=== PATIENT | female | born 1955 | race Caucasian/White ===

== ENCOUNTER 2017-03-11 11:53 | Emergency (ER) | payer SELFPAY ==
--- NOTE | 2017-03-11 13:38 | RAD ---
Indication: Neck pain. 5 views of the cervical spine demonstrates disc space narrowing at C4-C5, C5-C6 and C6-C7. Spinal canal appears to be intact. IMPRESSION: Degenerative disc disease at C4-C5, C5-C6 and C6-C7.
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
[2017-03-11 14:00] VITALS: BP 110/71
== END 2017-03-11 14:00 | disposition home or self-care (01) ==
LOC: ED 11:53
DX: S13.4XXA Sprain of ligaments of cervical spine, initial encounter (principal); M54.9 Dorsalgia, unspecified; M50.321 Other cervical disc degeneration at C4-C5 level; M50.322 Other cervical disc degeneration at C5-C6 level; M50.320 Other cervical disc degeneration, mid-cervical region, unspecified level; C71.9 Malignant neoplasm of brain, unspecified; V89.2XXA Person injured in unspecified motor-vehicle accident, traffic, initial encounter; Y92.014 Private driveway to single-family (private) house as the place of occurrence of the external cause; M25.569 Pain in unspecified knee; F41.9 Anxiety disorder, unspecified; F32.9 Major depressive disorder, single episode, unspecified; Y92.9 Unspecified place or not applicable
CPT/HCPCS: 72050; 72170; 72220; 99282

== ENCOUNTER 2017-06-10 11:27 | Inpatient (IN) | payer BC ==
[2017-06-10] MEDS ORDERED: NS 0.9% 1000 ML* 2,000 ML IV ONE (12:47)
[2017-06-10] MEDS ORDERED: cefTRIAXone(*) 1 GM in NS 0.9% 50 ML* 50 ML IVPB ONE (12:49)
[2017-06-10] MEDS ORDERED: Acetaminophen TAB* 325 MG PO ONE (12:49)
[2017-06-10 13:11] LABS: Hematocrit 32 % (35-47); Hemoglobin 10.6 g/dl (12.0-16.0); Mean Corpuscular HGB Conc 33 g/dl (31-36); Mean Corpuscular Hemoglobin 30 pg (27-31); Mean Corpuscular Volume 91 fL (80-97); Mean Platelet Volume 9 um3 (7.4-10.4); Red Blood Count 3.53 10^6/ul (4.0-5.4); Red Cell Distribution Width 15 % (10.5-15); White Blood Count 6.4 10^3/ul (3.5-10.8)
[2017-06-10 13:13] LABS: Add Diff/Slide Review? Slide Review Added; Comments Flag Yes
--- NOTE | 2017-06-10 13:21 | RAD ---
HISTORY: Fever, weakness COMPARISONS: May 01, 2017 VIEWS: 1: frontal portable view of the chest at 1:04 PM FINDINGS: LINES AND TUBES: None. CARDIOMEDIASTINAL SILHOUETTE: The cardiomediastinal silhouette is normal for portable technique. PLEURA: The costophrenic angles are sharp. No pleural abnormalities are noted. LUNG PARENCHYMA: There is patchy alveolar opacification of the right lung base ABDOMEN: The upper abdomen is clear. There is no subphrenic gas. BONES AND SOFT TISSUES: There is a mild scoliotic curvature of the spine. IMPRESSION: PATCHY RIGHT BASILAR CONSOLIDATION. RECOMMEND FOLLOW-UP UNTIL RESOLUTION TO EXCLUDE UNDERLYING PULMONARY PARENCHYMAL PATHOLOGY.
[2017-06-10 13:28] LABS: B Type Natriuretic Peptide 98 pg/mL
[2017-06-10 13:32] LABS: ALT 16 U/L (7-52); AST 17 U/L (13-39); Albumin 3.3 g/dL (3.2-5.2); Alkaline Phosphatase 58 U/L (34-104); Ammonia 22 mol/L (16-53); Anion Gap 5 mmol/L (2-11); BUN/Creatinine Ratio 14.6 (8-20); Blood Urea Nitrogen 13 mg/dL (6-24); C Reactive Protein 28.48 mg/L (< 5.00); CO2 Carbon Dioxide 24 mmol/L (22-32); Calcium 8.3 mg/dL (8.6-10.3); Chloride 108 mmol/L (101-111); Creatine Kinase 318 U/L (10-223); EGFR African American 82.1 (>60); EGFR Non-African American 63.9 (>60); Globulin 2.2 g/dL (2-4); Glucose 109 mg/dL (70-100); Lipase 14 U/L (11.0-82.0); Magnesium 1.9 mg/dL (1.9-2.7); Potassium 3.1 mmol/L (3.5-5.0); Sodium 137 mmol/L (133-145); Total Protein 5.5 g/dL (6.4-8.9)
[2017-06-10 13:43] LABS: Acetaminophen < 15 mcg/mL; Salicylate < 2.50 mg/dL (<30)
[2017-06-10] MEDS ORDERED: Azithromycin IV(*) 500 MG in NS 0.9% 250 ML* 250 ML IVPB ONE (13:59)
[2017-06-10] MEDS ORDERED: Azithromycin IV* 500 MG ADVAN VIAL IVPB ONE (14:09)
[2017-06-10] MEDS ORDERED: fentaNYL PATCH 25 MCG/HR TRANSDERM SCH (15:00)
[2017-06-10] MEDS: Enoxaparin(*) 40 MG/0.4 ML SYR SUBCUT SCH (15:02)
--- NOTE | 2017-06-10 15:12 | ADMNOTE ---
Subjective Date of Service: 06/10/17 Interval History: ADMISSION HISTORY AND PHYSICAL EXAM: Allergies Allergy/AdvReac Type Severity Reaction Status Date / Time Shellfish Allergy Allergy Unknown Unknown Verified 06/10/17 11:39 Reaction Details Tetracycline Allergy Anaphylatic Verified 06/10/17 11:39 Shock Home Medications Medication Instructions Recorded Confirmed Type Ferrous Sulfate TAB* 325 mg PO DAILY 04/27/15 06/10/17 History fentaNYL PATCH 25 MCG/HR* 25 mcg TRANSDERM Q72H 01/15/17 06/10/17 History [Duragesic PATCH 25 Mcg/Hr*] Acetaminophen W/ Codeine 1 - 2 tab PO Q4H PRN #270 tab MDD 04/10/17 06/10/17 Rx [Acetaminophen/Codeine 300-60 mg] 9 tabs Calcium [Oyster-Farhat 500] 500 mg PO DAILY 05/01/17 06/10/17 History Multivitamins/Minerals TAB* 1 tab PO DAILY 05/01/17 06/10/17 History [Theragran/minerals TAB*] Ondansetron ODT TAB* [Zofran 4 MG 4 mg SL Q6H PRN MDD 3 05/01/17 06/10/17 History Odt TAB*] Diazepam TAB(*) [Valium TAB(*)] 10 mg PO Q8H PRN 06/07/17 06/10/17 History Esomeprazole(NF) [NexIUM(NF)] 40 mg PO DAILY 06/10/17 06/10/17 History Topiramate TAB(*) [Topamax 25 MG 75 mg PO BID 06/10/17 06/10/17 History tab] hydrOXYzine HCL TAB* [Atarax TAB 50 mg PO Q4HR PRN 06/10/17 06/10/17 History 50 MG *] HPI: The patient states she woke up in her usual state of health this AM and had breakfast and took her AM meds. She said she then fell on the way to answer the door and couldn't get up. The person ringing her doorbell heard nothing and called the patient's friend, then tried another door which was unlocked. He found the patient on the floor. He lifted her back into bed, then called 911. The patient does not seem to recll these events accurately. Family History: Findings - Mother had leukemia. Family hx lung, colon, liver ca. Social History: Findings - Lives alone, SDM is her friend Pina Hollis. No alcohol or tobacco use. Past Medical History: Findings - Brain bx 11/2016, chemo q 6 weeks. COPD, GERD, spinal stenosi, Darryl-en-Y bypass 2012, D&C, esophageal dilatation Review of Systems - Measurements Intake and Output: Intake and Output Last 24 Hours 06/08/17 06/09/17 06/10/17 06/11/17 06:59 06:59 06:59 06:59 Intake Total 1999 Balance 1999 Weight 107 lb Intake: IV Fluids 1999 - Review of Systems Constitutional Symptoms: Positive: Weight Loss Dermatology: Positive: Normal HEENT: Positive: Change in Hearing - diminshed hearing Eyes: Positive: Normal Thyroid: Positive: Normal Pulmonary: Positive: Normal Cardiology: Positive: Normal Gastroenterology: Positive: Nausea Genital - Urinary: Positive: Normal Musculoskeletal: Positive: Joint Pain, Low Back Pain Endocrinology: Positive: Normal Hematologic/Lymphatic: Positive: Anemia Neurology: Positive: Change in Memory Psychiatry: Positive: Normal Allergic/Immunologic: Negative: Hx Anaphylaxis, Hx Angioedema, Hx Environmental, Hx Seasonal, Athsma, Hx HIV, Immunocompromise, Swollen Glands LymphNodes, Other Objective Active Medications: Acetaminophen/Codeine Phosphate (Tylenol W/ Codeine #4 (300 Mg/60 Mg) (Nf)) 1 tab PO Q4H PRN PRN Reason: PAIN Enoxaparin Sodium (Lovenox(*)) 40 mg SUBCUT Q24H [facility] Last Admin: 06/10/17 15:02 Dose: 40 mg Fentanyl (Duragesic Patch 25 Mcg/Hr*) 25 mcg TRANSDERM Q72H [facility] Ceftriaxone Sodium 1 gm/ (Sodium Chloride) 50 mls @ 200 mls/hr IVPB Q24H [facility] Azithromycin 500 mg/ Sodium (Chloride) 250 mls @ 250 mls/hr IVPB Q24H [facility] Multivitamins/Minerals (Theragran/Minerals Tab*) 1 tab PO DAILY [facility] Ondansetron HCl (Zofran Odt Tab*) 4 mg SL Q6H PRN PRN Reason: NAUSEA Topiramate (Topamax(*)) 75 mg PO BID [facility] Vital Signs - 8 hr 06/10/17 06/10/17 06/10/17 11:36 11:37 11:38 Temperature 101.7 F Pulse Rate 101 Respiratory 14 17 Rate Blood Pressure 92/54 92/54 (mmHg) O2 Sat by Pulse 96 Oximetry 06/10/17 06/10/17 06/10/17 12:00 12:30 13:00 Temperature Pulse Rate 91 92 Respiratory 17 14 Rate Blood Pressure 83/46 83/72 (mmHg) O2 Sat by Pulse 96 99 Oximetry 06/10/17 06/10/17 06/10/17 13:11 13:51 14:00 Temperature Pulse Rate Respiratory 18 29 Rate Blood Pressure 97/59 (mmHg) O2 Sat by Pulse 100 Oximetry 06/10/17 06/10/17 06/10/17 14:04 14:15 14:30 Temperature 99.1 F Pulse Rate Respiratory 19 16 Rate Blood Pressure 86/57 85/62 (mmHg) O2 Sat by Pulse Oximetry 06/10/17 06/10/17 14:58 15:00 Temperature Pulse Rate 88 Respiratory 16 13 Rate Blood Pressure 85/62 (mmHg) O2 Sat by Pulse 96 Oximetry Oxygen Devices in Use Now: None Appearance: Alert, sitting up on ED stretcher. In good spirits. Looks comfortable. Eyes: No Scleral Icterus Ears/Nose/Mouth/Throat: Clear Oropharnyx, Mucous Membranes Moist Neck: NL Appearance and Movements; NL JVP, No Thyroid Enlargement, Masses Respiratory: Symmetrical Chest Expansion and Respiratory Effort, Clear to Auscultation, Clear to Percussion Cardiovascular: NL Sounds; No Murmurs; No JVD, RRR, No Edema, - Abdominal: NL Sounds; No Tenderness; No Distention, No Hepatosplenomegaly, - Extremities: No Edema, No Clubbing, Cyanosis, - Skin: No Rash or Ulcers, No Nodules or Sclerosis, - Neurological: NL Sensation - Diminished memory. Result Diagrams: 06/10/17 12:57 06/10/17 12:57 Assess/Plan/Problems-Billing Assessment: - Patient Problems (1) Pneumonia Current Visit: Yes Status: Acute Code(s): J18.9 - PNEUMONIA, UNSPECIFIED ORGANISM SNOMED Code(s): 146948025 Comment: T 101.7 in ED. RLL infiltrate. ST swallow eval requested. Ceftri/ azith ordered. (2) Brain cancer Current Visit: No Status: Chronic Code(s): C71.9 - MALIGNANT NEOPLASM OF BRAIN, UNSPECIFIED SNOMED Code(s): 165651124 Comment: Still scheduled for more chemo on regular basis. Not clear if nausea is the main cause of her weight loss. Will give trimethobenzamide tid. Per her friend's account, patient is not safe alone at home. I will ask SW to help them set up 24 hr care for her. (3) Weight loss Current Visit: No Status: Acute Comment: Antiemetic tid as above. Nutrition consult requested. (4) Seizure Current Visit: No Status: Chronic Code(s): R56.9 - UNSPECIFIED CONVULSIONS SNOMED Code(s): 70864900 Comment: - No seizure activity - Seizure precautions - Continue Topiramate. I suspect med compliance was not good at home. Message left for Dr. Vyas to call me back (5) GERD (gastroesophageal reflux disease) Current Visit: No Status: Chronic Code(s): K21.9 - GASTRO-ESOPHAGEAL REFLUX DISEASE WITHOUT ESOPHAGITIS SNOMED Code(s): 521695173 Comment: Omeprazole to replace her esomprazole
[2017-06-10 15:42] LABS: Immature Granulocytes 15 % (0-9); Neutrophil % 78 % (38-83)
[2017-06-10] MEDS: Codeine TAB* 30 MG PO PRN ×2 (15:55→21:30)
[2017-06-10] MEDS: Acetaminop/Codeine 30 MG TAB* 1 TAB (300 MG/30 MG) PO PRN ×2 (15:55→21:29)
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
[2017-06-10] MEDS: fentaNYL Patch Check Q Shift 1 NOTE SCH (21:31)
[2017-06-10] MEDS: Trimethobenzamide CAP* 300 MG PO SCH (21:31)
[2017-06-10] MEDS: Topiramate TAB(*) 25 MG PO SCH (21:31)
[2017-06-10] MEDS: Morphine INJ* 4 MG/ML 1 ML CARPUJECT IV PRN (22:59)
[2017-06-11] MEDS: Morphine INJ* 4 MG/ML 1 ML CARPUJECT IV PRN ×2 (05:34→10:38)
[2017-06-11] MEDS: Omeprazole CAP* 20 MG PO SCH (05:40)
[2017-06-11] MEDS: fentaNYL Patch Check Q Shift 1 NOTE SCH ×2 (06:15→19:01)
[2017-06-11] MEDS: Multivitamins/Minerals TAB PO SCH (08:16)
[2017-06-11] MEDS: Topiramate TAB(*) 25 MG PO SCH ×2 (08:16→21:09)
[2017-06-11] MEDS: Trimethobenzamide CAP* 300 MG PO SCH ×3 (08:56→21:08)
[2017-06-11] MEDS: Azithromycin IV(*) 500 MG in NS 0.9% 250 ML* 250 ML IVPB SCH (10:38)
--- NOTE | 2017-06-11 11:28 | PN ---
Subjective Date of Service: 06/11/17 Interval History: Mild cough with small amt green sputum. Chronic pains much of her body, some more on L ribs where she fell, not really any worse than usual. Family History: Findings - Mother had leukemia. Family hx lung, colon, liver ca. Social History: Findings - Lives alone, SDM is her friend Pina Hollis. No alcohol or tobacco use. Past Medical History: Findings - Brain bx 11/2016, chemo q 6 weeks. COPD, GERD, spinal stenosi, Darryl-en-Y bypass 2011, D&C, esophageal dilatation Objective Active Medications: Acetaminophen/Codeine Phosphate (Tylenol/Codeine 30 Mg Tab*) 1 tab PO Q4H PRN PRN Reason: PAIN Last Admin: 06/10/17 21:29 Dose: 1 tab Codeine Sulfate (Codeine Tab*) 30 mg PO Q4H PRN PRN Reason: PAIN Last Admin: 06/10/17 21:30 Dose: 30 mg Enoxaparin Sodium (Lovenox(*)) 40 mg SUBCUT Q24H [facility] Last Admin: 06/10/17 15:02 Dose: 40 mg Fentanyl (Duragesic Patch 25 Mcg/Hr*) 25 mcg TRANSDERM Q72H [facility] Last Admin: 06/10/17 15:52 Dose: 25 mcg Ceftriaxone Sodium 1 gm/ (Dextrose) 50 mls @ 200 mls/hr IVPB Q24H [facility] Azithromycin 500 mg/ Sodium (Chloride) 250 mls @ 250 mls/hr IVPB Q24H [facility] Last Admin: 06/11/17 10:38 Dose: 250 mls/hr Multivitamins/Minerals (Theragran/Minerals Tab*) 1 tab PO DAILY [facility] Last Admin: 06/11/17 08:16 Dose: 1 tab Omeprazole (Prilosec Cap*) 20 mg PO 0600 [facility] Last Admin: 06/11/17 05:40 Dose: 20 mg Ondansetron HCl (Zofran Odt Tab*) 4 mg SL Q6H PRN PRN Reason: NAUSEA Pharmacy Profile Note (Fentanyl Patch Check Q Shift) 0 note N/A 0700,1900 [facility] Last Admin: 06/11/17 06:15 Dose: 1 note Topiramate (Topamax(*)) 75 mg PO BID [facility] Last Admin: 06/11/17 08:16 Dose: 75 mg Trimethobenzamide HCl (Tigan Cap*) 300 mg PO TID [facility] Last Admin: 06/11/17 08:56 Dose: 300 mg Vital Signs - 8 hr 06/11/17 06/11/17 06/11/17 03:33 05:34 06:53 Temperature 98.2 F Pulse Rate 69 Respiratory 16 18 18 Rate Blood Pressure 88/52 (mmHg) O2 Sat by Pulse 97 Oximetry 06/11/17 06/11/17 06/11/17 07:29 08:23 10:38 Temperature 98.5 F Pulse Rate 73 Respiratory 16 16 18 Rate Blood Pressure 85/55 (mmHg) O2 Sat by Pulse 100 Oximetry Oxygen Devices in Use Now: Nasal Cannula Appearance: Alert, partly up in bed. In good spirits. Looks comfortable. No cough during my visit. Eyes: No Scleral Icterus Neck: NL Appearance and Movements; NL JVP, No Thyroid Enlargement, Masses Respiratory: Symmetrical Chest Expansion and Respiratory Effort, Clear to Auscultation, Clear to Percussion Extremities: No Edema, No Clubbing, Cyanosis, - Skin: No Rash or Ulcers, No Nodules or Sclerosis, - - Alopecia R scalp due to RT. Neurological: Alert and Oriented x 3, NL Sensation Result Diagrams: 06/10/17 12:57 06/10/17 12:57 Additional Lab and Data: Lab Results 06/10/17 06/10/17 06/10/17 Range/Units 12:57 12:57 12:57 WBC (3.5-10.8) 10^3/ul RBC (4.0-5.4) 10^6/ul Hgb (12.0-16.0) g/dl Hct (35-47) % MCV (80-97) fL MCH (27-31) pg MCHC (31-36) g/dl RDW (10.5-15) % Plt Count (150-450) 10^3/ul MPV (7.4-10.4) um3 Immature Gran % (Auto) (0-9) % Neut % (Auto) (38-83) % Lymph % (Auto) (25-47) % Dade % (Auto) (1-9) % Eos % (Auto) (0-6) % Baso % (Auto) (0-2) % Absolute Neuts (auto) (1.5-7.7) 10^3/ul Absolute Lymphs (auto) (1.0-4.8) 10^3/ul Absolute Monos (auto) (0-0.8) 10^3/ul Absolute Eos (auto) (0-0.6) 10^3/ul Absolute Basos (auto) (0-0.2) 10^3/ul Absolute Nucleated RBC 10^3/ul Neutrophils % (38-83) % Band Neutrophils % (0-8) % Lymphocytes % (25-47) % Monocytes % (0-13) % Nucleated RBC % Normal RBC Morphology Elliptocytes INR (Anticoag Therapy) 1.09 H (0.77-1.02) APTT 29.3 (26.0-36.3) seconds Sodium 137 (133-145) mmol/L Potassium 3.1 L (3.5-5.0) mmol/L Chloride 108 (101-111) mmol/L Carbon Dioxide 24 (22-32) mmol/L Anion Gap 5 (2-11) mmol/L BUN 13 (6-24) mg/dL Creatinine 0.89 (0.51-0.95) mg/dL Est GFR ( Amer) 82.1 (>60) Est GFR (Non-Af Amer) 63.9 (>60) BUN/Creatinine Ratio 14.6 (8-20) Glucose 109 H (70-100) mg/dL Lactic Acid (0.5-2.0) mmol/L Calcium 8.3 L (8.6-10.3) mg/dL Magnesium 1.9 (1.9-2.7) mg/dL Total Bilirubin 0.70 (0.2-1.0) mg/dL AST 17 (13-39) U/L ALT 16 (7-52) U/L Alkaline Phosphatase 58 (34-104) U/L Ammonia 22 (16-53) mol/L Total Creatine Kinase 318 H (10-223) U/L CK-MB (CK-2) 12.1 H (0.6-6.3) ng/mL Troponin I 0.00 (<0.04) ng/mL C-Reactive Protein 28.48 H (< 5.00) mg/L B-Natriuretic Peptide 98 ( - 100) pg/mL Total Protein 5.5 L (6.4-8.9) g/dL Albumin 3.3 (3.2-5.2) g/dL Globulin 2.2 (2-4) g/dL Albumin/Globulin Ratio 1.5 (1-3) Lipase 14 (11.0-82.0) U/L TSH 0.60 (0.34-5.60) mcIU/mL Salicylates < 2.50 (<30) mg/dL Acetaminophen < 15 mcg/mL 06/10/17 06/10/17 Range/Units 12:57 12:57 WBC 6.4 (3.5-10.8) 10^3/ul RBC 3.53 L (4.0-5.4) 10^6/ul Hgb 10.6 L (12.0-16.0) g/dl Hct 32 L (35-47) % MCV 91 (80-97) fL MCH 30 (27-31) pg MCHC 33 (31-36) g/dl RDW 15 (10.5-15) % Plt Count 142 L (150-450) 10^3/ul MPV 9 (7.4-10.4) um3 Immature Gran % (Auto) 15 H (0-9) % Neut % (Auto) 92.5 H (38-83) % Lymph % (Auto) 1.9 L (25-47) % Dade % (Auto) 5.1 (1-9) % Eos % (Auto) 0.1 (0-6) % Baso % (Auto) 0.4 (0-2) % Absolute Neuts (auto) 5.9 (1.5-7.7) 10^3/ul Absolute Lymphs (auto) 0.1 L (1.0-4.8) 10^3/ul Absolute Monos (auto) 0.3 (0-0.8) 10^3/ul Absolute Eos (auto) 0 (0-0.6) 10^3/ul Absolute Basos (auto) 0 (0-0.2) 10^3/ul Absolute Nucleated RBC 0 10^3/ul Neutrophils % 78 (38-83) % Band Neutrophils % 15 H (0-8) % Lymphocytes % 3 L (25-47) % Monocytes % 4 (0-13) % Nucleated RBC % 0 Normal RBC Morphology Not Reportable Elliptocytes 1+ INR (Anticoag Therapy) (0.77-1.02) APTT (26.0-36.3) seconds Sodium (133-145) mmol/L Potassium (3.5-5.0) mmol/L Chloride (101-111) mmol/L Carbon Dioxide (22-32) mmol/L Anion Gap (2-11) mmol/L BUN (6-24) mg/dL Creatinine (0.51-0.95) mg/dL Est GFR ( Amer) (>60) Est GFR (Non-Af Amer) (>60) BUN/Creatinine Ratio (8-20) Glucose (70-100) mg/dL Lactic Acid 0.9 (0.5-2.0) mmol/L Calcium (8.6-10.3) mg/dL Magnesium (1.9-2.7) mg/dL Total Bilirubin (0.2-1.0) mg/dL AST (13-39) U/L ALT (7-52) U/L Alkaline Phosphatase (34-104) U/L Ammonia (16-53) mol/L Total Creatine Kinase (10-223) U/L CK-MB (CK-2) (0.6-6.3) ng/mL Troponin I (<0.04) ng/mL C-Reactive Protein (< 5.00) mg/L B-Natriuretic Peptide ( - 100) pg/mL Total Protein (6.4-8.9) g/dL Albumin (3.2-5.2) g/dL Globulin (2-4) g/dL Albumin/Globulin Ratio (1-3) Lipase (11.0-82.0) U/L TSH (0.34-5.60) mcIU/mL Salicylates (<30) mg/dL Acetaminophen mcg/mL Assess/Plan/Problems-Billing Assessment: - Patient Problems (1) Pneumonia Current Visit: Yes Status: Acute Code(s): J18.9 - PNEUMONIA, UNSPECIFIED ORGANISM SNOMED Code(s): 008583527 Comment: T 101.7 in ED. RLL infiltrate. Improved. ST swallow eval requested. Continue ceftri/azith. (2) Brain cancer Current Visit: No Status: Chronic Code(s): C71.9 - MALIGNANT NEOPLASM OF BRAIN, UNSPECIFIED SNOMED Code(s): 387513998 Comment: Still scheduled for more chemo on regular basis. Not clear if nausea is the main cause of her weight loss. Will give trimethobenzamide tid. Per her friend's account, patient is not safe alone at home. I will ask SW to help them set up 24 hr care for her. (3) Weight loss Current Visit: No Status: Acute Comment: Antiemetic tid as above. Nutrition consult requested. (4) Seizure Current Visit: No Status: Chronic Code(s): R56.9 - UNSPECIFIED CONVULSIONS SNOMED Code(s): 07642688 Comment: - No seizure activity - Seizure precautions - Continue Topiramate. I suspect med compliance was not good at home. Discussed with Dr. Vyas. She is transitioning pt to lamotrigine. (5) GERD (gastroesophageal reflux disease) Current Visit: No Status: Chronic Code(s): K21.9 - GASTRO-ESOPHAGEAL REFLUX DISEASE WITHOUT ESOPHAGITIS SNOMED Code(s): 059763967 Comment: Omeprazole in replace of her esomprazole
[2017-06-11] MEDS: cefTRIAXone(*) 1 GM in D5W 50 ML BAG* 50 ML IVPB SCH (11:50)
[2017-06-11] MEDS: Enoxaparin(*) 40 MG/0.4 ML SYR SUBCUT SCH (14:05)
[2017-06-11] MEDS: Codeine TAB* 30 MG PO PRN ×2 (14:12→21:05)
[2017-06-11] MEDS: Acetaminop/Codeine 30 MG TAB* 1 TAB (300 MG/30 MG) PO PRN ×2 (14:12→21:07)
[2017-06-11 14:18] LABS: Urine Bacteria Absent (Absent); Urine Bilirubin Negative (Negative); Urine Glucose Negative (Negative); Urine Nitrite Negative (Negative)
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
[2017-06-11] MEDS: lamoTRIgine TAB(*) 25 MG PO SCH (21:08)
[2017-06-12] MEDS: Acetaminop/Codeine 30 MG TAB* 1 TAB (300 MG/30 MG) PO PRN ×3 (00:59→12:05)
[2017-06-12] MEDS: Codeine TAB* 30 MG PO PRN ×3 (00:59→12:05)
[2017-06-12] MEDS: fentaNYL Patch Check Q Shift 1 NOTE SCH ×2 (07:08→19:31)
[2017-06-12] MEDS: Omeprazole CAP* 20 MG PO SCH (07:18)
[2017-06-12] MEDS: Multivitamins/Minerals TAB PO SCH (08:26)
[2017-06-12] MEDS: Topiramate TAB(*) 25 MG PO SCH ×2 (08:26→20:49)
[2017-06-12] MEDS: Trimethobenzamide CAP* 300 MG PO SCH ×3 (08:27→20:49)
[2017-06-12] MEDS: cefTRIAXone(*) 1 GM in D5W 50 ML BAG* 50 ML IVPB SCH (11:57)
[2017-06-12] MEDS: Azithromycin IV(*) 500 MG in NS 0.9% 250 ML* 250 ML IVPB SCH (12:18)
[2017-06-12] MEDS: Ondansetron ODT TAB* 4 MG SL PRN ×3 (14:01→17:50)
[2017-06-12] MEDS: Morphine ORAL CONCENTRATE* 5 MG/0.25 ML ORAL.SYRIN SL PRN ×3 (14:50→20:50)
[2017-06-12] MEDS: Enoxaparin(*) 40 MG/0.4 ML SYR SUBCUT SCH (14:51)
--- NOTE | 2017-06-12 15:57 | PN ---
Subjective Date of Service: 06/12/17 Interval History: C/O pain "entire body", more on hips, down legs, arms, L ribs. Some cough, little sputum. Not SOB. Family History: Findings - Mother had leukemia. Family hx lung, colon, liver ca. Social History: Findings - Lives alone, SDM is her friend Pina Hollis. No alcohol or tobacco use. Past Medical History: Findings - Brain bx 11/2016, chemo q 6 weeks. COPD, GERD, spinal stenosi, Darryl-en-Y bypass 2011, D&C, esophageal dilatation Objective Active Medications: Enoxaparin Sodium (Lovenox(*)) 40 mg SUBCUT Q24H [facility] Last Admin: 06/12/17 14:51 Dose: 40 mg Fentanyl (Duragesic Patch 25 Mcg/Hr*) 25 mcg TRANSDERM Q72H [facility] Last Admin: 06/10/17 15:52 Dose: 25 mcg Ceftriaxone Sodium 1 gm/ (Dextrose) 50 mls @ 200 mls/hr IVPB Q24H [facility] Last Admin: 06/12/17 11:57 Dose: 200 mls/hr Lamotrigine (Lamictal Tab(*)) 25 mg PO BEDTIME [facility] Last Admin: 06/11/17 21:08 Dose: 25 mg Morphine Sulfate (Morphine Oral Concentrate*) 5 mg SL Q2H PRN PRN Reason: PAIN Last Admin: 06/12/17 14:50 Dose: 5 mg Multivitamins/Minerals (Theragran/Minerals Tab*) 1 tab PO DAILY [facility] Last Admin: 06/12/17 08:26 Dose: 1 tab Omeprazole (Prilosec Cap*) 20 mg PO 0600 [facility] Last Admin: 06/12/17 07:18 Dose: 20 mg Ondansetron HCl (Zofran Odt Tab*) 4 mg SL Q6H PRN PRN Reason: NAUSEA Last Admin: 06/12/17 14:01 Dose: 4 mg Pharmacy Profile Note (Fentanyl Patch Check Q Shift) 0 note N/A 0700,1900 [facility] Last Admin: 06/12/17 07:08 Dose: 1 note Topiramate (Topamax(*)) 75 mg PO BID [facility] Last Admin: 06/12/17 08:26 Dose: 75 mg Trimethobenzamide HCl (Tigan Cap*) 300 mg PO TID [facility] Last Admin: 06/12/17 14:01 Dose: 300 mg Vital Signs - 8 hr 06/12/17 06/12/17 06/12/17 09:10 09:15 12:05 Respiratory 16 16 16 Rate 06/12/17 06/12/17 06/12/17 14:07 14:08 14:50 Respiratory 16 16 16 Rate Oxygen Devices in Use Now: Nasal Cannula Appearance: Alert, sitting up in bed. Eyes: No Scleral Icterus Respiratory: Symmetrical Chest Expansion and Respiratory Effort, Clear to Auscultation, Clear to Percussion Extremities: No Edema, No Clubbing, Cyanosis, - Skin: No Rash or Ulcers, No Nodules or Sclerosis, - Neurological: Alert and Oriented x 3, NL Sensation Result Diagrams: 06/10/17 12:57 06/10/17 12:57 Additional Lab and Data: Lab Results 06/10/17 06/10/17 06/10/17 Range/Units 12:57 12:57 12:57 WBC (3.5-10.8) 10^3/ul RBC (4.0-5.4) 10^6/ul Hgb (12.0-16.0) g/dl Hct (35-47) % MCV (80-97) fL MCH (27-31) pg MCHC (31-36) g/dl RDW (10.5-15) % Plt Count (150-450) 10^3/ul MPV (7.4-10.4) um3 Immature Gran % (Auto) (0-9) % Neut % (Auto) (38-83) % Lymph % (Auto) (25-47) % Randolph % (Auto) (1-9) % Eos % (Auto) (0-6) % Baso % (Auto) (0-2) % Absolute Neuts (auto) (1.5-7.7) 10^3/ul Absolute Lymphs (auto) (1.0-4.8) 10^3/ul Absolute Monos (auto) (0-0.8) 10^3/ul Absolute Eos (auto) (0-0.6) 10^3/ul Absolute Basos (auto) (0-0.2) 10^3/ul Absolute Nucleated RBC 10^3/ul Neutrophils % (38-83) % Band Neutrophils % (0-8) % Lymphocytes % (25-47) % Monocytes % (0-13) % Nucleated RBC % Normal RBC Morphology Elliptocytes INR (Anticoag Therapy) 1.09 H (0.77-1.02) APTT 29.3 (26.0-36.3) seconds Sodium 137 (133-145) mmol/L Potassium 3.1 L (3.5-5.0) mmol/L Chloride 108 (101-111) mmol/L Carbon Dioxide 24 (22-32) mmol/L Anion Gap 5 (2-11) mmol/L BUN 13 (6-24) mg/dL Creatinine 0.89 (0.51-0.95) mg/dL Est GFR ( Amer) 82.1 (>60) Est GFR (Non-Af Amer) 63.9 (>60) BUN/Creatinine Ratio 14.6 (8-20) Glucose 109 H (70-100) mg/dL Lactic Acid (0.5-2.0) mmol/L Calcium 8.3 L (8.6-10.3) mg/dL Magnesium 1.9 (1.9-2.7) mg/dL Total Bilirubin 0.70 (0.2-1.0) mg/dL AST 17 (13-39) U/L ALT 16 (7-52) U/L Alkaline Phosphatase 58 (34-104) U/L Ammonia 22 (16-53) mol/L Total Creatine Kinase 318 H (10-223) U/L CK-MB (CK-2) 12.1 H (0.6-6.3) ng/mL Troponin I 0.00 (<0.04) ng/mL C-Reactive Protein 28.48 H (< 5.00) mg/L B-Natriuretic Peptide 98 ( - 100) pg/mL Total Protein 5.5 L (6.4-8.9) g/dL Albumin 3.3 (3.2-5.2) g/dL Globulin 2.2 (2-4) g/dL Albumin/Globulin Ratio 1.5 (1-3) Lipase 14 (11.0-82.0) U/L TSH 0.60 (0.34-5.60) mcIU/mL Salicylates < 2.50 (<30) mg/dL Acetaminophen < 15 mcg/mL 06/10/17 06/10/17 Range/Units 12:57 12:57 WBC 6.4 (3.5-10.8) 10^3/ul RBC 3.53 L (4.0-5.4) 10^6/ul Hgb 10.6 L (12.0-16.0) g/dl Hct 32 L (35-47) % MCV 91 (80-97) fL MCH 30 (27-31) pg MCHC 33 (31-36) g/dl RDW 15 (10.5-15) % Plt Count 142 L (150-450) 10^3/ul MPV 9 (7.4-10.4) um3 Immature Gran % (Auto) 15 H (0-9) % Neut % (Auto) 92.5 H (38-83) % Lymph % (Auto) 1.9 L (25-47) % Randolph % (Auto) 5.1 (1-9) % Eos % (Auto) 0.1 (0-6) % Baso % (Auto) 0.4 (0-2) % Absolute Neuts (auto) 5.9 (1.5-7.7) 10^3/ul Absolute Lymphs (auto) 0.1 L (1.0-4.8) 10^3/ul Absolute Monos (auto) 0.3 (0-0.8) 10^3/ul Absolute Eos (auto) 0 (0-0.6) 10^3/ul Absolute Basos (auto) 0 (0-0.2) 10^3/ul Absolute Nucleated RBC 0 10^3/ul Neutrophils % 78 (38-83) % Band Neutrophils % 15 H (0-8) % Lymphocytes % 3 L (25-47) % Monocytes % 4 (0-13) % Nucleated RBC % 0 Normal RBC Morphology Not Reportable Elliptocytes 1+ INR (Anticoag Therapy) (0.77-1.02) APTT (26.0-36.3) seconds Sodium (133-145) mmol/L Potassium (3.5-5.0) mmol/L Chloride (101-111) mmol/L Carbon Dioxide (22-32) mmol/L Anion Gap (2-11) mmol/L BUN (6-24) mg/dL Creatinine (0.51-0.95) mg/dL Est GFR ( Amer) (>60) Est GFR (Non-Af Amer) (>60) BUN/Creatinine Ratio (8-20) Glucose (70-100) mg/dL Lactic Acid 0.9 (0.5-2.0) mmol/L Calcium (8.6-10.3) mg/dL Magnesium (1.9-2.7) mg/dL Total Bilirubin (0.2-1.0) mg/dL AST (13-39) U/L ALT (7-52) U/L Alkaline Phosphatase (34-104) U/L Ammonia (16-53) mol/L Total Creatine Kinase (10-223) U/L CK-MB (CK-2) (0.6-6.3) ng/mL Troponin I (<0.04) ng/mL C-Reactive Protein (< 5.00) mg/L B-Natriuretic Peptide ( - 100) pg/mL Total Protein (6.4-8.9) g/dL Albumin (3.2-5.2) g/dL Globulin (2-4) g/dL Albumin/Globulin Ratio (1-3) Lipase (11.0-82.0) U/L TSH (0.34-5.60) mcIU/mL Salicylates (<30) mg/dL Acetaminophen mcg/mL Microbiology and Other Data: Microbiology 06/11/17 14:00 Urine Culture - Final Urine Assess/Plan/Problems-Billing Assessment: - Patient Problems (1) Pneumonia Current Visit: Yes Status: Acute Code(s): J18.9 - PNEUMONIA, UNSPECIFIED ORGANISM SNOMED Code(s): 348197507 Comment: T 101.7 in ED. RLL infiltrate. Improved. ST swallow eval appreciated. Continue ceftri IV, change to oral azith 06/13. (2) Brain cancer Current Visit: No Status: Chronic Code(s): C71.9 - MALIGNANT NEOPLASM OF BRAIN, UNSPECIFIED SNOMED Code(s): 622908994 Comment: Still scheduled for more chemo on regular basis. Not clear if nausea is the main cause of her weight loss. Will give trimethobenzamide tid. Per her friend's account, patient is not safe alone at home. I will ask SW to help them set up 24 hr care for her. (3) Weight loss Current Visit: No Status: Acute Comment: Antiemetic tid as above. Nutrition consult appreciated. (4) Seizure Current Visit: No Status: Chronic Code(s): R56.9 - UNSPECIFIED CONVULSIONS SNOMED Code(s): 68635787 Comment: - No seizure activity - Seizure precautions - Continue Topiramate. I suspect med compliance was not good at home. Discussed with Dr. Vyas. She is transitioning pt to lamotrigine. (5) GERD (gastroesophageal reflux disease) Current Visit: No Status: Chronic Code(s): K21.9 - GASTRO-ESOPHAGEAL REFLUX DISEASE WITHOUT ESOPHAGITIS SNOMED Code(s): 440773761 Comment: Omeprazole in replace of her esomprazole (6) Severe malnutrition Current Visit: Yes Status: Acute Code(s): E43 - UNSPECIFIED SEVERE PROTEIN- CALORIE MALNUTRITION SNOMED Code(s): 18348293 Comment: I agree with the spare person's assessment. (7) Pain Current Visit: Yes Status: Acute Code(s): R52 - PAIN, UNSPECIFIED SNOMED Code(s): 24143392 Comment: Fentanyl patch increased to 50 on 06/12. Total body bone scan .
[2017-06-12] MEDS ORDERED: fentaNYL PATCH 50 MCG/HR TRANSDERM SCH (17:00)
[2017-06-12] MEDS ORDERED: Ondansetron ODT TAB* 4 MG ONE (17:46)
[2017-06-12] MEDS: lamoTRIgine TAB(*) 25 MG PO SCH (20:49)
[2017-06-13] MEDS: Morphine ORAL CONCENTRATE* 5 MG/0.25 ML ORAL.SYRIN SL PRN ×9 (03:30→23:18)
[2017-06-13] MEDS: Omeprazole CAP* 20 MG PO SCH (06:08)
[2017-06-13] MEDS: fentaNYL Patch Check Q Shift 1 NOTE SCH ×2 (07:02→19:07)
[2017-06-13] MEDS: Trimethobenzamide CAP* 300 MG PO SCH ×3 (07:26→21:02)
[2017-06-13] MEDS: Multivitamins/Minerals TAB PO SCH (07:26)
[2017-06-13] MEDS: Azithromycin TAB* 250 MG PO SCH (07:26)
[2017-06-13] MEDS: Topiramate TAB(*) 25 MG PO SCH ×2 (08:13→21:02)
[2017-06-13 08:22] LABS: Hematocrit 31 % (35-47); Hemoglobin 10.4 g/dl (12.0-16.0); Mean Corpuscular HGB Conc 34 g/dl (31-36); Mean Corpuscular Hemoglobin 30 pg (27-31); Mean Corpuscular Volume 90 fL (80-97); Mean Platelet Volume 9 um3 (7.4-10.4); Red Blood Count 3.45 10^6/ul (4.0-5.4); Red Cell Distribution Width 15 % (10.5-15); White Blood Count 4.8 10^3/ul (3.5-10.8)
[2017-06-13 08:39] LABS: BUN/Creatinine Ratio 14.5 (8-20); Calcium 8.6 mg/dL (8.6-10.3); EGFR African American 110.2 (>60); EGFR Non-African American 85.7 (>60); Potassium 3.5 mmol/L (3.5-5.0)
--- NOTE | 2017-06-13 10:56 | RAD ---
Indication: Whole-body pain, brain cancer. Total body bone scan was performed after intravenous injection of 20.7 mCi of technetium 99m HDP. There is homogeneous radiotracer throughout the skeletal structures. No evidence of increased radiotracer uptake is noted. Typical activity likely due to degenerative changes of the knees are noted. IMPRESSION: No evidence of metastatic disease is noted in the skeletal structures.
--- NOTE | 2017-06-13 12:51 | PN ---
Subjective Date of Service: 06/13/17 Interval History: Pain control much better with higher dose fentanyl patch. Little cough, no SOB at rest. Appetite fair. No bowel c/o. Family History: Findings - Mother had leukemia. Family hx lung, colon, liver ca. Social History: Findings - Lives alone, SDM is her friend Pina Hollis. No alcohol or tobacco use. Past Medical History: Findings - Brain bx 11/2016, chemo q 6 weeks. COPD, GERD, spinal stenosi, Darryl-en-Y bypass 2011, D&C, esophageal dilatation Objective Active Medications: Azithromycin (Zithromax Tab*) 250 mg PO DAILY [facility] Last Admin: 06/13/17 07:26 Dose: 250 mg Enoxaparin Sodium (Lovenox(*)) 40 mg SUBCUT Q24H [facility] Last Admin: 06/12/17 14:51 Dose: 40 mg Fentanyl (Duragesic Patch 50 Mcg/Hr*) 50 mcg TRANSDERM Q72H [facility] Last Admin: 06/12/17 17:00 Dose: 50 mcg Ceftriaxone Sodium 1 gm/ (Dextrose) 50 mls @ 200 mls/hr IVPB Q24H [facility] Last Admin: 06/12/17 11:57 Dose: 200 mls/hr Lamotrigine (Lamictal Tab(*)) 25 mg PO BEDTIME [facility] Last Admin: 06/12/17 20:49 Dose: 25 mg Morphine Sulfate (Morphine Oral Concentrate*) 5 mg SL Q2H PRN PRN Reason: PAIN Last Admin: 06/13/17 10:23 Dose: 5 mg Multivitamins/Minerals (Theragran/Minerals Tab*) 1 tab PO DAILY [facility] Last Admin: 06/13/17 07:26 Dose: 1 tab Omeprazole (Prilosec Cap*) 20 mg PO 0600 [facility] Last Admin: 06/13/17 06:08 Dose: 20 mg Ondansetron HCl (Zofran Odt Tab*) 4 mg SL Q3H PRN PRN Reason: NAUSEA Last Admin: 06/12/17 17:50 Dose: 4 mg Pharmacy Profile Note (Fentanyl Patch Check Q Shift) 0 note N/A 0700,1900 [facility] Last Admin: 06/13/17 07:02 Dose: 1 note Topiramate (Topamax(*)) 75 mg PO BID [facility] Last Admin: 06/13/17 08:13 Dose: 75 mg Trimethobenzamide HCl (Tigan Cap*) 300 mg PO TID [facility] Last Admin: 06/13/17 07:26 Dose: 300 mg Vital Signs - 8 hr 06/13/17 06/13/17 06/13/17 06:08 06:09 07:38 Temperature 98.0 F Pulse Rate 68 Respiratory 15 16 14 Rate Blood Pressure 101/65 (mmHg) O2 Sat by Pulse 100 Oximetry 06/13/17 06/13/17 06/13/17 08:00 08:11 08:13 Temperature Pulse Rate Respiratory 14 14 14 Rate Blood Pressure (mmHg) O2 Sat by Pulse Oximetry 06/13/17 10:23 Temperature Pulse Rate Respiratory 16 Rate Blood Pressure (mmHg) O2 Sat by Pulse Oximetry Oxygen Devices in Use Now: None Appearance: Alert, sitting up in bed. In good spirits. Looks comfortable. Eyes: No Scleral Icterus Neck: NL Appearance and Movements; NL JVP, No Thyroid Enlargement, Masses Respiratory: Symmetrical Chest Expansion and Respiratory Effort, Clear to Auscultation, Clear to Percussion Cardiovascular: NL Sounds; No Murmurs; No JVD, RRR, No Edema, - Extremities: No Edema, No Clubbing, Cyanosis, - Skin: No Rash or Ulcers, No Nodules or Sclerosis, - Neurological: Alert and Oriented x 3, NL Sensation Result Diagrams: 06/13/17 07:47 06/13/17 07:47 Additional Lab and Data: Lab Results 06/10/17 06/10/17 06/10/17 Range/Units 12:57 12:57 12:57 WBC (3.5-10.8) 10^3/ul RBC (4.0-5.4) 10^6/ul Hgb (12.0-16.0) g/dl Hct (35-47) % MCV (80-97) fL MCH (27-31) pg MCHC (31-36) g/dl RDW (10.5-15) % Plt Count (150-450) 10^3/ul MPV (7.4-10.4) um3 Immature Gran % (Auto) (0-9) % Neut % (Auto) (38-83) % Lymph % (Auto) (25-47) % Weld % (Auto) (1-9) % Eos % (Auto) (0-6) % Baso % (Auto) (0-2) % Absolute Neuts (auto) (1.5-7.7) 10^3/ul Absolute Lymphs (auto) (1.0-4.8) 10^3/ul Absolute Monos (auto) (0-0.8) 10^3/ul Absolute Eos (auto) (0-0.6) 10^3/ul Absolute Basos (auto) (0-0.2) 10^3/ul Absolute Nucleated RBC 10^3/ul Neutrophils % (38-83) % Band Neutrophils % (0-8) % Lymphocytes % (25-47) % Monocytes % (0-13) % Nucleated RBC % Normal RBC Morphology Elliptocytes INR (Anticoag Therapy) 1.09 H (0.77-1.02) APTT 29.3 (26.0-36.3) seconds Sodium 137 (133-145) mmol/L Potassium 3.1 L (3.5-5.0) mmol/L Chloride 108 (101-111) mmol/L Carbon Dioxide 24 (22-32) mmol/L Anion Gap 5 (2-11) mmol/L BUN 13 (6-24) mg/dL Creatinine 0.89 (0.51-0.95) mg/dL Est GFR ( Amer) 82.1 (>60) Est GFR (Non-Af Amer) 63.9 (>60) BUN/Creatinine Ratio 14.6 (8-20) Glucose 109 H (70-100) mg/dL Lactic Acid (0.5-2.0) mmol/L Calcium 8.3 L (8.6-10.3) mg/dL Magnesium 1.9 (1.9-2.7) mg/dL Total Bilirubin 0.70 (0.2-1.0) mg/dL AST 17 (13-39) U/L ALT 16 (7-52) U/L Alkaline Phosphatase 58 (34-104) U/L Ammonia 22 (16-53) mol/L Total Creatine Kinase 318 H (10-223) U/L CK-MB (CK-2) 12.1 H (0.6-6.3) ng/mL Troponin I 0.00 (<0.04) ng/mL C-Reactive Protein 28.48 H (< 5.00) mg/L B-Natriuretic Peptide 98 ( - 100) pg/mL Total Protein 5.5 L (6.4-8.9) g/dL Albumin 3.3 (3.2-5.2) g/dL Globulin 2.2 (2-4) g/dL Albumin/Globulin Ratio 1.5 (1-3) Lipase 14 (11.0-82.0) U/L TSH 0.60 (0.34-5.60) mcIU/mL Salicylates < 2.50 (<30) mg/dL Acetaminophen < 15 mcg/mL 06/10/17 06/10/17 Range/Units 12:57 12:57 WBC 6.4 (3.5-10.8) 10^3/ul RBC 3.53 L (4.0-5.4) 10^6/ul Hgb 10.6 L (12.0-16.0) g/dl Hct 32 L (35-47) % MCV 91 (80-97) fL MCH 30 (27-31) pg MCHC 33 (31-36) g/dl RDW 15 (10.5-15) % Plt Count 142 L (150-450) 10^3/ul MPV 9 (7.4-10.4) um3 Immature Gran % (Auto) 15 H (0-9) % Neut % (Auto) 92.5 H (38-83) % Lymph % (Auto) 1.9 L (25-47) % Weld % (Auto) 5.1 (1-9) % Eos % (Auto) 0.1 (0-6) % Baso % (Auto) 0.4 (0-2) % Absolute Neuts (auto) 5.9 (1.5-7.7) 10^3/ul Absolute Lymphs (auto) 0.1 L (1.0-4.8) 10^3/ul Absolute Monos (auto) 0.3 (0-0.8) 10^3/ul Absolute Eos (auto) 0 (0-0.6) 10^3/ul Absolute Basos (auto) 0 (0-0.2) 10^3/ul Absolute Nucleated RBC 0 10^3/ul Neutrophils % 78 (38-83) % Band Neutrophils % 15 H (0-8) % Lymphocytes % 3 L (25-47) % Monocytes % 4 (0-13) % Nucleated RBC % 0 Normal RBC Morphology Not Reportable Elliptocytes 1+ INR (Anticoag Therapy) (0.77-1.02) APTT (26.0-36.3) seconds Sodium (133-145) mmol/L Potassium (3.5-5.0) mmol/L Chloride (101-111) mmol/L Carbon Dioxide (22-32) mmol/L Anion Gap (2-11) mmol/L BUN (6-24) mg/dL Creatinine (0.51-0.95) mg/dL Est GFR ( Amer) (>60) Est GFR (Non-Af Amer) (>60) BUN/Creatinine Ratio (8-20) Glucose (70-100) mg/dL Lactic Acid 0.9 (0.5-2.0) mmol/L Calcium (8.6-10.3) mg/dL Magnesium (1.9-2.7) mg/dL Total Bilirubin (0.2-1.0) mg/dL AST (13-39) U/L ALT (7-52) U/L Alkaline Phosphatase (34-104) U/L Ammonia (16-53) mol/L Total Creatine Kinase (10-223) U/L CK-MB (CK-2) (0.6-6.3) ng/mL Troponin I (<0.04) ng/mL C-Reactive Protein (< 5.00) mg/L B-Natriuretic Peptide ( - 100) pg/mL Total Protein (6.4-8.9) g/dL Albumin (3.2-5.2) g/dL Globulin (2-4) g/dL Albumin/Globulin Ratio (1-3) Lipase (11.0-82.0) U/L TSH (0.34-5.60) mcIU/mL Salicylates (<30) mg/dL Acetaminophen mcg/mL Microbiology and Other Data: Microbiology 06/11/17 14:00 Urine Culture - Final Urine Assess/Plan/Problems-Billing Assessment: - Patient Problems (1) Pneumonia Current Visit: Yes Status: Resolved Code(s): J18.9 - PNEUMONIA, UNSPECIFIED ORGANISM SNOMED Code(s): 446320994 Comment: T 101.7 in ED. RLL infiltrate. Improved. ST swallow eval appreciated. Continue ceftri IV, change to oral azith 06/13. (2) Brain cancer Current Visit: No Status: Chronic Code(s): C71.9 - MALIGNANT NEOPLASM OF BRAIN, UNSPECIFIED SNOMED Code(s): 283727443 Comment: Still scheduled for more chemo on regular basis. Not clear if nausea is the main cause of her weight loss. Will give trimethobenzamide tid. Per her friend's account, patient is not safe alone at home. I will ask SW to help them set up 24 hr care for her. (3) Weight loss Current Visit: No Status: Acute Comment: Antiemetic tid as above. Nutrition consult appreciated. (4) Seizure Current Visit: No Status: Chronic Code(s): R56.9 - UNSPECIFIED CONVULSIONS SNOMED Code(s): 63147414 Comment: - No seizure activity - Seizure precautions - Continue Topiramate. I suspect med compliance was not good at home. Discussed with Dr. Vyas. She is transitioning pt to lamotrigine. (5) GERD (gastroesophageal reflux disease) Current Visit: No Status: Chronic Code(s): K21.9 - GASTRO-ESOPHAGEAL REFLUX DISEASE WITHOUT ESOPHAGITIS SNOMED Code(s): 834350818 Comment: Omeprazole in replace of her esomprazole (6) Severe malnutrition Current Visit: Yes Status: Acute Code(s): E43 - UNSPECIFIED SEVERE PROTEIN- CALORIE MALNUTRITION SNOMED Code(s): 11790112 Comment: I agree with the mail list processor's assessment. (7) Pain Current Visit: Yes Status: Acute Code(s): R52 - PAIN, UNSPECIFIED SNOMED Code(s): 88538429 Comment: Fentanyl patch increased to 50 on 06/12. Total body bone scan showed no evidence of metastatic disease.
[2017-06-13] MEDS: cefTRIAXone(*) 1 GM in D5W 50 ML BAG* 50 ML IVPB SCH (12:59)
[2017-06-13] MEDS: Enoxaparin(*) 40 MG/0.4 ML SYR SUBCUT SCH (14:57)
[2017-06-13] MEDS: Ondansetron ODT TAB* 4 MG SL PRN (17:25)
[2017-06-13] MEDS: lamoTRIgine TAB(*) 25 MG PO SCH (21:03)
[2017-06-14] MEDS: Ondansetron ODT TAB* 4 MG SL PRN (01:03)
[2017-06-14] MEDS: Morphine ORAL CONCENTRATE* 5 MG/0.25 ML ORAL.SYRIN SL PRN ×4 (03:14→15:52)
[2017-06-14] MEDS: Omeprazole CAP* 20 MG PO SCH (06:23)
[2017-06-14] MEDS: fentaNYL Patch Check Q Shift 1 NOTE SCH (06:28)
[2017-06-14] MEDS: Azithromycin TAB* 250 MG PO SCH (09:03)
[2017-06-14] MEDS: Multivitamins/Minerals TAB PO SCH (09:03)
[2017-06-14] MEDS: Topiramate TAB(*) 25 MG PO SCH (09:03)
[2017-06-14] MEDS: Trimethobenzamide CAP* 300 MG PO SCH ×2 (09:03→14:30)
[2017-06-14] MEDS: cefTRIAXone(*) 1 GM in D5W 50 ML BAG* 50 ML IVPB SCH (12:03)
[2017-06-14] MEDS: Enoxaparin(*) 40 MG/0.4 ML SYR SUBCUT SCH (14:30)
--- NOTE | 2017-06-14 15:13 | PN ---
Progress Note - Progress Note Date of Service: 06/14/17 Note: Time spent on discharge 55 minutes.
[2017-06-14 15:25] VITALS: BP 87/64
--- NOTE | 2017-06-15 04:35 | PN ---
PROGRESS NOTE: DATE OF FOLLOWUP: 06/14/17 HISTORY: The patient has not had any difficulty tolerating the initiation of lamotrigine. She reports that she feels more alert mentally and her friends noticed this yesterday as well. Her pain is also under better control now that her fentanyl patch has been increased. I reviewed again the transition between lamotrigine and Topamax that is going to take place as an outpatient and her friend and healthcare proxy, Pina, was in the room as well. MEDICATIONS: Reviewed and includes: 1. Ceftriaxone 1 g daily. 2. Lovenox. 3. Fentanyl 50 mcg q.72 hours. 4. Lamotrigine 25 mg at bedtime, started on 06/11. 5. Morphine 5 mg sublingual q.2 hours p.r.n. pain. 6. Multivitamin daily. 7. Omeprazole 20 mg daily. 8. Zofran 4 mg q.3 hours p.r.n. nausea. 9. Topamax 75 mg b.i.d. 10. Tigan 300 mg 3 times daily. PHYSICAL EXAMINATION: Vital Signs: Temperature 97.8, blood pressure 98/63, heart rate 64, oxygen saturation 100% on room air. The patient was not formally reexamined today. She was resting comfortably in her hospital bed. She had a half eaten hamburger left on her plate from lunch as well as pudding, which was untouched and fruit, which was untouched. She appeared fully awake and alert. Her speech was clear without any apparent aphasia. Her face is symmetric. She moved her upper extremities with grossly full strength bilaterally. She reached for her coffee cup with normal coordination. DIAGNOSTIC STUDIES/LAB DATA: Her BMP yesterday showed an elevated chloride of 114 and CO2 of 21, otherwise is unremarkable. Her CBC yesterday showed a hematocrit of 31, which is stable and hemoglobin of 10.4. She had a bone scan yesterday, which was negative for any signs of metastatic disease. 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 She came into the hospital after a fall at home. Her compliance with Topamax at home has been questioned. She is underweight and is having cognitive difficulties and so we are making a transition from Topamax to lamotrigine. On 06/18, lamotrigine should be increased to 25 mg twice daily for 1-week, then further increased to 25 mg in the morning and 50 mg at night for 1-week and continue increasing by 25 mg weekly until she reaches a dose of 100 mg twice daily. Once she is taking lamotrigine 50 mg twice daily, she can begin decreasing Topamax by 25 mg weekly. I am happy to hear that she will have some help in the home to help her through this transition. I encouraged her to get back into the use of her pill box of a.m. and p.m. slots to help with medication compliance. I also encouraged her to set her cellphone alarm twice a day to remind her to take her medications. I will see her back in my office in 4 to 8 weeks after her discharge to make sure this transition is going well. [id number]/[facility] #: [id number] MTDD
--- NOTE | 2017-06-15 05:02 | DS ---
CC: Dr. Sifuentes; Dr. Vyas DISCHARGE SUMMARY: DATE OF ADMISSION: DATE OF DISCHARGE: 06/14/17 HOSPITAL COURSE: This 62-year-old woman presented with altered mental status. The patient fell on the way to answer the door. She was found on the floor, she could not get up. She does have some cognitive and memory impairment. She was found to have a right lower lobe pneumonia. I note she gets chemotherapy for brain cancer. She has a history of seizures as well. The patient was treated with ceftriaxone and azithromycin both intravenously. She did well in the hospital. She was evaluated by Dr. Vyas. It was thought that possibly her topiramate was giving her some cognitive problems. The plan was to gradually transition her over to lamotrigine, the first step was done in the hospital. She had a lot of nausea, which may have contributed to the weight loss that she has noted. She seemed to respond well to trimethobenzamide t.i.d. I am going to make it p.r.n. at the time of discharge. She seemed to be eating better in the hospital. Pain control was also much improved when the fentanyl patch was increased from 25 to 50 mcg per hour. She also has got good pain relief with sublingual morphine oral concentrate which she will get at home as well. She is to get more home services from a private company basically all day 7 days a week. For the weekend, after discharge friends and family, will help out to fill the gap. FINAL DIAGNOSES: 1. Pneumonia. 2. Brain cancer. 3. Weight loss. 4. Seizures. 5. Gastroesophageal reflux disease. DISCHARGE MEDICATIONS: 1. Fentanyl patch 50 mcg per hour every 72 hours. 2. Lamotrigine 25 mg h.s. 3. Morphine oral concentrate 5 mg every 2 hours p.r.n. 4. Cefuroxime 500 mg b.i.d. for 5 days. 5. Trimethobenzamide 300 mg t.i.d. p.r.n. 6. Ondansetron ODT 4 mg every 6 hours p.r.n. 7. Multivitamin with mineral daily. 8. Calcium 500 mg daily. 9. Topiramate 75 mg b.i.d. 10. Esomeprazole 40 mg daily. [id number]/[facility] #: [id number] [facility]
== END 2017-06-14 16:00 | disposition home health service (06) | DRG 139 ==
LOC: ED 11:27 → MED 14:32
PROVIDERS: ADMIT Internal Medicine; ATTEND Internal Medicine
DX: J18.9 Pneumonia, unspecified organism (principal); E43 Unspecified severe protein-calorie malnutrition; C71.9 Malignant neoplasm of brain, unspecified; J44.0 Chronic obstructive pulmonary disease with (acute) lower respiratory infection; G40.802 Other epilepsy, not intractable, without status epilepticus; Z68.1 Body mass index [BMI] 19.9 or less, adult; K21.9 Gastro-esophageal reflux disease without esophagitis; M48.00 Spinal stenosis, site unspecified; I10 Essential (primary) hypertension; G47.30 Sleep apnea, unspecified; M19.90 Unspecified osteoarthritis, unspecified site; M79.7 Fibromyalgia; G89.29 Other chronic pain; F41.9 Anxiety disorder, unspecified; F32.9 Major depressive disorder, single episode, unspecified; R41.3 Other amnesia; M25.569 Pain in unspecified knee; R40.2412 Glasgow coma scale score 13-15, at arrival to emergency department; M54.9 Dorsalgia, unspecified; Z82.49 Family history of ischemic heart disease and other diseases of the circulatory system; Z80.6 Family history of leukemia; Z80.1 Family history of malignant neoplasm of trachea, bronchus and lung; Z80.0 Family history of malignant neoplasm of digestive organs; Z98.84 Bariatric surgery status; Z88.1 Allergy status to other antibiotic agents; Z91.013 Allergy to seafood
CPT/HCPCS: 36415; 71010; 78306; 80048; 80053; 80329; 81003; 81015; 82140; 82550; 82553; 83605; 83690; 83735; 83880; 84443; 84484; 85025; 85610; 85730; 86140; 87040; 87086; A9270-GY; A9503; G0480; J0456; J0696; J1650; J2270

== ENCOUNTER 2017-08-22 14:27 | Emergency (ER) | payer BC ==
[2017-08-22 15:25] VITALS: BP 110/74
--- NOTE | 2017-08-22 15:59 | RAD ---
INDICATION: Fall, weakness. COMPARISON: Comparison is made with a prior chest x-ray study from June 10, 2017. TECHNIQUE: AP and lateral views of the chest were obtained. FINDINGS: The heart is within normal limits in size. Mediastinal and hilar contours appear within normal limits. The lungs are clear. No pleural effusion is present. IMPRESSION: NO EVIDENCE FOR ACUTE FINDING.
--- NOTE | 2017-08-22 15:59 | RAD ---
INDICATION: Left hip pain COMPARISON: None TECHNIQUE: An AP view of the pelvis and AP views of the hip in neutral and abducted position were obtained FINDINGS: Bones: There are no acute bony findings. Joint spaces: The hips articulate normally. The joint spaces are preserved. SI joints/symphysis: The SI joints and symphysis are intact. Other: None IMPRESSION: NO ACUTE BONY FINDINGS. HIP JOINT SPACES ARE PRESERVED
--- NOTE | 2017-08-22 16:01 | RAD ---
INDICATION: Bilateral knee pain COMPARISON: None TECHNIQUE: 4 view radiograph of each knee. FINDINGS: The visualized bones are well-corticated and properly aligned. Degenerative changes of the bilateral knees include narrowing of the medial and lateral compartments. This is most severe at the left lateral compartment where there is marginal osteophyte formation. There is narrowing of the patellofemoral joints bilaterally which is fairly symmetric. There is no radiographic evidence of joint effusion. There is no acute fracture, dislocation or other focal bony abnormality. IMPRESSION: Degenerative changes of the bilateral knees most severely affecting lateral compartment of the left knee. If the patient's symptoms persist, follow-up imaging is recommended.
[2017-08-22 16:14] LABS: ABS Basophils 0 10^3/ul (0-0.2); ABS Eosinophils 0 10^3/ul (0-0.6); ABS Lymphocytes 0.7 10^3/ul (1.0-4.8); ABS Monocytes 0.5 10^3/ul (0-0.8); ABS Neutrophils 5.8 10^3/ul (1.5-7.7); ABS Nucleated RBC 0 10^3/ul; Eosinophil % 0.6 % (0-6); Hematocrit 30 % (35-47); Hemoglobin 10.1 g/dl (12.0-16.0); Lymphocyte % 10.3 % (25-47); Mean Corpuscular HGB Conc 34 g/dl (31-36); Mean Corpuscular Hemoglobin 32 pg (27-31); Mean Corpuscular Volume 94 fL (80-97); Mean Platelet Volume 8 um3 (7.4-10.4); Nucleated Red Blood Cells % 0; Platelet Count 224 10^3/ul (150-450); Red Blood Count 3.18 10^6/ul (4.0-5.4); Red Cell Distribution Width 18 % (10.5-15); White Blood Count 7.1 10^3/ul (3.5-10.8)
[2017-08-22 16:21] LABS: Urine Appearance Clear; Urine Blood Negative (Negative); Urine Color Yellow; Urine Ketones Negative (Negative); Urine Protein Negative (Negative); Urine Specific Gravity 1.013 (1.010-1.030); Urine Urobilinogen Negative (Negative)
--- NOTE | 2017-08-22 16:24 | RAD ---
INDICATION: [employer] malignancy. Fall. COMPARISON: CT brain April 20, 2016; MRI brain July 24, 2017 TECHNIQUE: Noncontrast axial source images were acquired from the skull base to the vertex. FINDINGS: Ventricles/sulci: There is effacement of the right lateral ventricle similar in appearance to the more recent MRI. There is no trapping of the contralateral ventricle. The basilar cisterns remain patent examination. Brain parenchyma: There is extensive vasogenic edema in the right cerebral hemisphere with sulcal effacement. There is subfalcine herniation to the right measuring approximately 7 mm, unchanged. The discrete parenchymal lesions identified on the MRI are considerably less conspicuous on the CT examination related at least in part are exclusively to differences in the sensitivity in detecting parenchymal lesions of CT versus MRI. Intracranial hemorrhage:None. Extra-axial spaces: There are no abnormal extra axial fluid collections or evidence of extra-axial mass. Calvarium: There is no calvarial fracture or other calvarial abnormality. Scalp: There is no evidence of scalp or extracalvarial soft tissue abnormality. Paranasal sinuses/mastoid: The paranasal sinuses and mastoid air cells are clear. Other: None. IMPRESSION: Mass effect right cerebral hemisphere with sulcal effacement and subfalcine herniation to the left. The degree of mass effect is similar to the recent MRI. No acute appearing findings.
[2017-08-22 16:33] LABS: EGFR Non-African American 102.6 (>60)
--- OUTSIDE RECORDS SUMMARY | 2017-08-22 16:35 | XMS REPORT ---
:1955 External Reference #:[id number] Author Organization [facility] Address [address] [address] Phone [phone] Care Team Providers Name Role Phone Hilario Sifuentes MD Primary Care Physician Unavailable Payers Type Date Identification Numbers Payment Provider Subscriber Commercial Policy Number: [id number] [employer] Jacob Sultana PayID: [id number] [address] [address] J[place]ON Gill [address] Medigap Part B Effective: Policy Number: Biomatricaconsuelo Likez Jacob [id number] Expires: 2015 Group Number: [id number] [address] PayID: [id number] BERNA[place]TE Catherine [address] Medigap Part B Effective: Policy Number: Kraig James [id number] Expires: 2017 PayID: [id number] [address] [address] JASON Gill [address] Problems Date Description Provider Status Onset: 05/10/2017 Malignant neoplasm of brain Alanna Vyas MD Active Onset: 05/10/2017 Complex partial epileptic seizure Alanna Vyas MD Active Onset: 01/07/2017 Anxiety disorder Alanna Vyas MD Active Onset: 01/07/2017 Nausea Alanna Vyas MD Active Onset: 01/07/2017 Abnormal results function studies Alanna Vyas MD Active of central nervous system Onset: 12/11/2016 Syncope and collapse Alanna Vyas MD Active Onset: 10/17/2011 Preoperative cardiovascular Elvia Novoa M.D. Active examination Onset: 10/17/2011 Obesity Elvia Novoa M.D. Active Onset: 10/17/2011 Chest pain Elvia Novoa M.D. Active Onset: 10/17/2011 Hyperlipidemia Elvia Novoa M.D. Active Family History Date Family Member(s) Problem(s) Comments Father due to Accident () - from [place] Mother Leukemia Mother Hypertension Mother "Walking leukemia" (?CLL?) Maternal Grandmother Cancer, Breast Maternal Grandmother Stroke Maternal Grandmother Congestive Heart Failure (CHF) Maternal Grandmother Hypertension Social History Type Date Description Comments Marital Status Lives With Alone Occupation traveling repair accountant Cigarette Use Never Smoked Cigarettes ETOH Use Rarely consumes alcohol Recreational Drug Use Denies Drug Use Smoking Patient has never smoked Daily Caffeine Consumes on average 5 cups of regular coffee per day Daily Caffeine consumes chocolate occasionally Exercise Type/Frequency Exercises sporadically with dogs Currently Active Patient is currently not sexually active Allergies, Adverse Reactions, Alerts Date Description Reaction Status Severity Comments 06/16/2009 Mold active 06/16/2009 grasses active 06/16/2009 Cats active 06/16/2009 Tetracycline active Vomit Medications Medication Date Status Form Strength Qnty SIG Indications Ordering Provider Lamotrigine 08/12/ Active Tablets 100mg 180ta 1 by mouth Alanna 2017 bs twice a day MD Lilliam Diazepam 01/16/ Active Tablets 5mg 30tab 1 tab by Alanna 2016 s mouth twice MD Lilliam a day as needed Zofran Odt 01/07/ Active Tablets 4mg 60tab 1 by mouth R11.0 Alanna 2016 Dispers s for nausea MD Lilliam every 8 hours as needed Tylenol With 06/20/ Active Tablets 300-30mg 120ta 1 tab po Stevanovi Codeine #3 2008 bs prn max 9 c, tabs/day Milagrso Davidson Hydroxyzine HCL / Active Tablets 50mg 50tab 1 qid prn Unknown 0000 s Esomeprazole / Active Capsules 20mg 1 by mouth Unknown Magnesium 0000 DR every day Vitamin B12 / Active Tablets ER 1000mcg 1 by mouth Unknown 0000 every day Vitamin C 00// Active Tablets 250mg 2-4 prn Unknown 0000 Ferrous Sulfate / Active Tablets 325(65Fe) Take 1 Unknown 0000 mg Tablet Every Day [facility] Calcium 600 00/ Active Tablets 600-800mg- Take 1 Unknown & Vitamin 0000 Unit Tablet By D3 Mouth Twice A Day Multi-Day 00/ Active Tablets 1 by mouth Unknown Vitamins 0000 every day Fentanyl / Active Patches 12mcg/HR as directed Unknown 0000 72HR Dexamethasone / Active Tablets 4mg 1 tab po Unknown 0000 Lamotrigine 07/05/ Hx Tablets 25mg 720ta 1 in in the Alanna 2018 - bs morning and MD Lilliam in at 2018 night x1 week then further increase as instructed by dr. vyas, up to 4 tablets 2x/day Topiramate 01/07/ Hx Tablets 25mg 240ta 3 tabs po R55 Alanna 2016 - bs bid MD Lilliam 2017 Lexapro 01/07/ Hx Tablets 10mg 60tab take 1 F06.4 Alanna 2016 - s tablet by MD Lilliam 05/09/ mouth 2016 x7days then increase to 2 tablets by mouth once a day Nexium 09/29/ Hx Capsules 40mg 90cap 1 po qd Fanny 2009 Reynold wilkes, 10/15/ Amaris Davidson M.D. Codeine Sulfate 09/01/ Hx Tablets 30mg 120ta 1 po qid 311 Bonilla 2009 Reynold Lei 10/15/ Milagros,FACP 2011 756.12 Lexapro 07/20/2009 - Hx Tablets 10mg 30tabs 1 po qd Javy, 10/16/2011 Milagros Davidson Klonopin 07/20/2009 - Hx Tablets 1mg 60tabs 1 tablet po 311 Bonilla Tripp 10/17/2011 bid Milagros Lei,FACP Zithromax 06/16/2009 - Hx Tablets 500mg 3tabs 1 tablet po 466.0 Javy, 01/07/2017 daily for 3 Milagros Davidson days 786.2 Codeine 06/16/2009 - Hx Tablets 30mg 120tabs 1 tab po qid 756.12 Javy, Sulfate 06/20/2009 Milagros Davidson Advair 06/16/2009 - Hx Misc 250-50 2units 1 puff bid 756.12 Nish Palafox 11/24/2009 mcg/Do Milagros Davidson se Percocet 08/17/2008 - Hx Tablets 5-325m 40tabs 1 po q4h prn 724.5 Javy, 09/01/2009 sophia Davidson M.D. Flonase - Hx Suspension 50mcg/ 1units 1 intranasal Unknown 05/09/2017 Act puff to each nostril daily Omeprazole - Hx Capsules DR 40mg 90caps 1 po qd Unknown 12/11/2016 Ambien - Hx Tablets 10mg 30tabs 1 po qhs prn Unknown 10/17/2011 sleep insomnia Ventolin HFA - Hx Aerosol 108(90 1units 2 puffs po Unknown 05/09/2017 Base) qid prn mcg/ac Soma - Hx Tablets 350mg 60tabs 1 po prn Unknown 11/29/2016 Klonopin - Hx Tablets 1mg 60tabs 1 po bid Unknown 10/16/2011 Lexapro - Hx Tablets 10mg 3 po qod Unknown 01/07/2017 Flexeril - Hx Tablets 10mg 30tabs 1 po tid prn Unknown 10/17/2011 Prempro - Hx Tablets 0.3-1. 28tabs 1 po qd Unknown 11/29/2016 5mg Singulair - Hx Tablets 10mg 30tabs 1 po qd Unknown 05/09/2017 Nitrostat - Hx Tablets Sub 0.4mg 25tabs one sl q5min Unknown 01/07/2017 up to 3 doses prn Xanax - Hx Tablets 0.25mg 20tabs one by mouth Unknown 11/29/2016 up to three times daily as needed for anxiety Klonopin - Hx Tablets 1mg 1 po bid prn 311 Unknown 11/29/2016 Dulera - Hx Aerosol 100-5m 1mon 2 puff bid Unknown 08/18/2017 cg/Act as needed Zolpidem - Hx Tablets 10mg Take 1 Tab Unknown Tartrate 05/09/2017 By Mouth Every Bedtime as Needed For Sleep/Insomn ia. Vital Signs Date Vital Result Comment 08/19/2017 Height 68 inches 5'8" Weight 109.38 lb Heart Rate 68 /min BP Systolic 110 mmHg BP Diastolic 70 mmHg BMI (Body Mass Index) 16.6 kg/m2 05/10/2017 Height 68 inches 5'8" Weight 118.25 lb Heart Rate 82 /min BP Systolic Sitting 122 mmHg BP Diastolic Sitting 78 mmHg Respiratory Rate 16 /min BMI (Body Mass Index) 18.0 kg/m2 01/07/2017 Height 68 inches 5'8" Weight 130.00 lb ? Heart Rate 88 /min BP Systolic Sitting 148 mmHg BP Diastolic Sitting 94 mmHg Respiratory Rate 16 /min BMI (Body Mass Index) 19.8 kg/m2 12/11/2016 Height 68 inches 5'8" Weight 135.00 lb Heart Rate 80 /min BP Systolic Sitting 150 mmHg BP Diastolic Sitting 98 mmHg Respiratory Rate 17 /min BMI (Body Mass Index) 20.5 kg/m2 06/04/2013 Height 68 inches 5'8" Weight 140.00 lb Heart Rate 72 /min BP Systolic 142 mmHg BP Diastolic 90 mmHg BMI (Body Mass Index) 21.3 kg/m2 10/17/2011 Height 68 inches 5'8" Weight 241.00 lb Heart Rate 77 /min BP Systolic Sitting 116 mmHg right arm, left arm 106/66 BP Diastolic Sitting 70 mmHg right arm, left arm 106/66 BP Systolic Standing 136 mmHg BP Diastolic Standing 86 mmHg BMI (Body Mass Index) 36.6 kg/m2 11/24/2009 Weight 241.00 lb Heart Rate 84 /min BP Systolic Sitting 122 mmHg BP Diastolic Sitting 78 mmHg 09/01/2009 Weight 240.00 lb Heart Rate 86 /min BP Systolic Sitting 120 mmHg BP Diastolic Sitting 82 mmHg 07/20/2009 Height 67.5 inches 5'7.50" Weight 247.00 lb Heart Rate 84 /min BP Systolic Sitting 142 mmHg BP Diastolic Sitting 100 mmHg BMI (Body Mass Index) 38.1 kg/m2 06/16/2009 Height 67.5 inches 5'7.50" Weight 243.00 lb Heart Rate 90 /min BP Systolic Sitting 124 mmHg BP Diastolic Sitting 88 mmHg Body Temperature 99.8 F BMI (Body Mass Index) 37.5 kg/m2 Results Test Date Test Result H/L Range Note Basic Metabolic Panel 01/11/2017 Sodium 139 mmol/L 133-145 Potassium 4.2 mmol/L 3.5-5.0 Chloride 107 mmol/L 101-111 Co2 Carbon Dioxide 23 mmol/L 22-32 Anion Gap 9 mmol/L 2-11 Glucose 110 mg/dL High 70-100 Blood Urea Nitrogen 16 mg/dL 6-24 Creatinine 0.99 mg/dL High 0.51-0.95 BUN/Creatinine Ratio 16.2 8-20 Calcium 9.8 mg/dL 8.6-10.3 Egfr Non- 56.7 >60 Egfr 72.9 >60 1 Urinalysis W/Microscopic 10/19/2009 Ua Color YELLOW Yellow 2 Appearance-Urine CLEAR Clear 2 Specific Peytona-Ur 1.026 1.010-1.030 2 Esterase-Urine NEGATIVE Negative 2 Nitrite NEGATIVE Negative 2 Sugbdcwdteae-Im-OKW NEGATIVE Negative 2 Protein-Urine NEGATIVE Negative 2 PH-Urine 5.5 5-9 2 Blood-Urine NEGATIVE Negative 2 Ketones-Urine NEGATIVE Negative 2 Bilirubin-Ur NEGATIVE Negative 2 Glucose-Urine NEGATIVE Negative 2 WBC-Urine 0-2 0-5 2 RBC-Urine 0-2 0-2 2 Mucus Urine MODERATE None 2 Epith Cells-Ur MODERATE None 2 Bacteria-Urine TRACE None 2 Comp Metabolic Panel 10/19/2009 Sodium 139 mmol/L 135-145 2 Potassium 4.7 mmol/L 3.5-5.0 2 Chloride 106 mmol/L 101-111 2 Co2 (Carbon Dioxide) 25.0 mmol/L 22-32 2 Anion Gap 8.0 mmol/L 2-11 2, 3 Glucose 96 mg/dL 70-100 2, 4 BUN 18 mg/dL 6-24 2 Creatinine 0.90 mg/dL 0.50-1.40 2 One Over Creatinine 1.10 2 BUN/Creatinine Ratio 20.0 8-20 2 Calcium 9.4 mg/dL 8.1-9.9 2, 5 Total Protein 7.1 GM/DL 6.2-8.1 2 Albumin 4.1 GM/DL 3.6-5.4 2 Globulin 3.0 GM/DL 2-4 2 Albumin/Globulin Ratio 1.4 1-3 2 Bilirubin Total 0.7 mg/dL 0.4-1.5 2, 6 Alkaline Phosphatase 98 U/L 30-110 2 Alt (SGPT) 27 U/L 14-54 2 Ast (Sgot) 22 U/L 12-42 2 eGFR Non- 68.8 > 60 2 eGFR 83.3 > 60 2, 7 Lipid Profile (Trig/Chol/HDL) 10/19/2009 Triglyceride 85 mg/dL 40-200 2 Cholesterol 240 mg/dL High Less Than 200 2, 8 High Density Lipoprotein 81 mg/dL High 40-60 2, 9 Cholesterol/HDL Ratio 2.96 AVERAGE 1-4.44 2 Low Density Lipoprotein 142 mg/dL High Less Than 100 2, 10 Liver Function Panel 10/19/2009 Bilirubin Direct 0.1 mg/dL 0.1-0.5 2 Indirect Bilirubin 0.6 mg/dL 0.1-0.75 2 Creatinine Clearance 10/19/2009 Creatinine Random Urine 164.26 mg/dL 2 Creat Clearance 152 mL/min High 80-125 2 Hours Of Collection 24 HR 24- 2 Urine Volume Measurement 1200 ML 2 Total Protein 24HR Urine 10/19/2009 Total Protein Random Urine 9 mg/dL 2 Urine Total Protein/24HR 108 MG/24HR High 50-100 2 Laboratory test finding 07/19/2009 Fasting Urine Glucose NEGATIVE Negative 11 Fasting Glucose 94 mg/dL 70-110 11 1HR Glucose 185 mg/dL 11, 12 2HR Glucose 127 mg/dL 11, 13 Laboratory test finding 07/19/2009 Erythrocyte Sed Rate 8 MM/HR 0-30 C Reactive Protein 0.5 mg/dL Less Than 0.5 C Reactive Protein High Sensit 5.1 mg/L < 7.48 14 Urinalysis W/Microscopic 07/19/2009 Ua Color YELLOW Yellow Appearance-Urine CLEAR Clear Specific Peytona-Ur 1.021 1.010-1.030 Esterase-Urine NEGATIVE Negative Nitrite NEGATIVE Negative Yushhcdfscbu-Cl-OJN NEGATIVE Negative Protein-Urine NEGATIVE Negative PH-Urine 5.5 5-9 Blood-Urine TRACE Negative Ketones-Urine NEGATIVE Negative Bilirubin-Ur NEGATIVE Negative Glucose-Urine NEGATIVE Negative WBC-Urine 0-2 0-5 RBC-Urine 0-2 0-2 Mucus Urine SMALL None Epith Cells-Ur FEW None Bacteria-Urine TRACE None Lipid Profile (Trig/Chol/HDL) 07/19/2009 Triglyceride 87 mg/dL 40-200 Cholesterol 249 mg/dL High Less Than 200 15 High Density Lipoprotein 68 mg/dL High 40-60 16 Cholesterol/HDL Ratio 3.66 AVERAGE 1-4.44 Low Density Lipoprotein 164 mg/dL High Less Than 100 17 Laboratory test finding 07/19/2009 TSH 1.68 MIU/ML 0.34-5.60 Comp Metabolic Panel 07/19/2009 Sodium 139 mmol/L 135-145 Potassium 4.3 mmol/L 3.5-5.0 Chloride 106 mmol/L 101-111 Co2 (Carbon Dioxide) 26.0 mmol/L 22-32 Anion Gap 7.0 mmol/L 2-11 18 Glucose 99 mg/dL 70-100 19 BUN 12 mg/dL 6-24 Creatinine 0.90 mg/dL 0.50-1.40 One Over Creatinine 1.10 BUN/Creatinine Ratio 13.3 8-20 Calcium 9.1 mg/dL 8.1-9.9 20 Total Protein 6.6 GM/DL 6.2-8.1 Albumin 4.1 GM/DL 3.6-5.4 Globulin 2.5 GM/DL 2-4 Albumin/Globulin Ratio 1.6 1-3 Bilirubin Total 0.7 mg/dL 0.4-1.5 21 Alkaline Phosphatase 69 U/L 30-110 Alt (SGPT) 28 U/L 14-54 Ast (Sgot) 22 U/L 12-42 eGFR Non- 68.8 > 60 eGFR 83.3 > 60 22 CBC With Electronic Diff 07/19/2009 White Blood Count 6.3 CUMM 4.8-10.8 Red Cell Count 4.71 CUMM 4.2-5.4 Hemoglobin 13.5 g/dL 12.0-16.0 Hematocrit 40 % 35-47 Mean Corpuscular Volume 86 um3 79-97 Mean Corpuscular Hemoglob 29 pg 27-31 Mean Corpuscular HGB Cone 33 g/dL 32-36 Redcell Distribution WDTH 14 % 10.5-15 Platelet Count 349 CUMM 150-450 Mean Platelet Volume 8.5 um3 7.4-10.4 Gran % 68.3 % 38-83 Lymph % 23.7 % Low 25-47 Mononuclear % 5.7 % 1-9 Eosinophil % 2.2 % 0-6 Basophil % 0.1 % 0-2 Abs Lymphs 1.5 1.0-4.8 Abs Mononuclear 0.4 0-0.8 Absolute Neutrophil Count 4.3 1.5-7.7 Abs Eosinophils 0.1 0-0.6 Abs Basophils 0 0-0.2 1 Because ethnic data is not always readily available, this report includes an eGFR for both -Americans and non- Americans. The National Kidney Disease Education Program (NKDEP) does not endorse the use of the MDRD equation for patients that are not between the ages of 18 and 70, are , have extremes of body size, muscle mass, or nutritional status, or are non- or non-. According to the National Kidney Foundation, irrespective of diagnosis, the stage of the disease is based on the level of kidney function: Stage Description GFR(mL/min/1.73 m(2)) 1 Kidney damage with normal or decreased GFR 90 2 Kidney damage with mild decrease in GFR 60-89 3 Moderate decrease in GFR 30-59 4 Severe decrease in GFR 15-29 5 Kidney failure <15 (or dialysis) 2 COLLECTED FROM 10/18/09 @ 1230 THROUGH 10/19/09 @ 1200 . 3 Anion gap measurement may be of limited value in the presence of any alkalosis, especially in a combined acid base disorder. . 4 Note change in reference range as of 02/19/08. The change was based on recommendations from the [place] [employer]. 5 Please note change in reference range effective 07 . 6 A metabolite of Naproxen, O-desmethylnaproxen, has been shown to interfere with the Jendrassik-Paolo method for measuring total bilirubin. Samples from patients who have taken Naproxen have shown spurious elevation in total bilirubin levels. 7 Because ethnic data is not always readily available, this report includes an eGFR for both -Americans and non- Americans. The National Kidney Disease Education Program (NKDEP) does not endorse the use of the MDRD equation for patients that are not between the ages of 18 and 70, are , have extremes of body size, muscle mass, or nutritional status, or are non- or non-. According to the National Kidney Foundation, irrespective of diagnosis, the stage of the disease is based on the level of kidney function: Stage Description GFR(mL/min/1.73 m(2)) 1 Kidney damage with normal or decreased GFR 90 2 Kidney damage with mild decrease in GFR 60-89 3 Moderate decrease in GFR 30-59 4 Severe decrease in GFR 15-29 5 Kidney failure <15 (or dialysis) 8 CHOLESTEROL INTERPRETATION: Desirable: Less than 200 MG/DL Borderline-High Risk: 200-239 MG/DL High-Risk: 240 MG/DL and over 9 HDL INTERPRETATION: Undesirable: High Risk: Less than 40 MG/DL Desirable: Low Risk: Greater than 60 MG/DL 10 LDL INTERPRETATION: Low Risk Optimal Level: LDL Less than 100 MG/DL Near or Above Optimal: LDL 100-129 MG/DL Borderline High Risk: LDL 130-159 MG/DL High Risk: LDL 160-189 MG/DL Very High Risk: LDL Greater than 189 MG/DL 11 2HR GTT FAST URINE FSTNG URINE GLU from [id number]. 12 REFERENCE RANGE: 20-50 MG/DL ABOVE FASTING 13 REFERENCE RANGE: 5-15 MG/DL ABOVE FASTING 14 Less Than 1.0......Low Risk of Cardiovascular Disease 1.0-3.0............Medium Risk (<2 Fold Increase) Greater Than 3.0...High Risk (Approximately 2-Fold Increase) The above guidelines are referenced in "Markers of Inflammation and Cardiovascular Disease: Application to Clinical and Public Health Practice." A Statement for Health Professionals from the Centers for Disease Control and Prevention and the [place] [employer]. (Reference: Circulation 2003 107:499-511) SERUM LEVELS OF HIGH SENSITIVITY C-REACTIVE PROTEIN MEASURED BY THE CRAZE LXi 725 SYSTEM SHOULD NOT BE INTERPRETTED ABSOLUTE EVIDENCE OF THE PRESENCE OR ABSENCE OF DISEASE. A HIGH SENSITIVITY CRP VALUE SHOULD BE USED IN CONJUNCTION WITH OTHER PERTINENT CLINICAL AND DIAGNOSTIC INFORMATION. 15 CHOLESTEROL INTERPRETATION: Desirable: Less than 200 MG/DL Borderline-High Risk: 200-239 MG/DL High-Risk: 240 MG/DL and over 16 HDL INTERPRETATION: Undesirable: High Risk: Less than 40 MG/DL Desirable: Low Risk: Greater than 60 MG/DL 17 LDL INTERPRETATION: Low Risk Optimal Level: LDL Less than 100 MG/DL Near or Above Optimal: LDL 100-129 MG/DL Borderline High Risk: LDL 130-159 MG/DL High Risk: LDL 160-189 MG/DL Very High Risk: LDL Greater than 189 MG/DL 18 Anion gap measurement may be of limited value in the presence of any alkalosis, especially in a combined acid base disorder. . 19 Note change in reference range as of 02/19/08. The change was based on recommendations from the [place] [employer]. 20 Please note change in reference range effective 07 . 21 A metabolite of Naproxen, O-desmethylnaproxen, has been shown to interfere with the Jendrassik-Paolo method for measuring total bilirubin. Samples from patients who have taken Naproxen have shown spurious elevation in total bilirubin levels. 22 Because ethnic data is not always readily available, this report includes an eGFR for both -Americans and non- Americans. The National Kidney Disease Education Program (NKDEP) does not endorse the use of the MDRD equation for patients that are not between the ages of 18 and 70, are , have extremes of body size, muscle mass, or nutritional status, or are non- or non-. According to the National Kidney Foundation, irrespective of diagnosis, the stage of the disease is based on the level of kidney function: Stage Description GFR(mL/min/1.73 m(2)) 1 Kidney damage with normal or decreased GFR 90 2 Kidney damage with mild decrease in GFR 60-89 3 Moderate decrease in GFR 30-59 4 Severe decrease in GFR 15-29 5 Kidney failure <15 (or dialysis) Procedures Date CPT Code Description Status 01/07/2017 29708 EEG Recording Awake & Asleep Completed 07/26/2016 02763 ECHO Transthorasic Realtime 2D W Doppler & Color Completed Flow Hosp 05/01/2016 93616 Holter Monitor Review (24 hr)dr darling & ruddy Completed only 06/22/2015 Bone Mineral Density Test Completed 06/22/2015 Mammogram Completed 10/02/2013 20154 EKG, Interpretation Only Completed 10/01/2013 69269 ECHO Transthorasic Realtime 2D W Doppler & Color Completed Flow Hosp 08/18/2012 76365 Polysomnography Sleep Staging 4+ Parameters W/Cpap Completed 11/08/2011 37689 ECHO Transthoracic, Real-Time 2D With Doppler And Color Completed Flow 11/06/2011 63765 ECHO Stress Test Incl Perf Contiuous ekg Monitoring Completed W/Phys Superv 10/17/2011 80958 EKG Tracing & Interpretation Completed 06/08/2010 95291 Treadmill Interp/Report Only Completed 06/08/2010 14770 Stress Test Supervsn W/Out I/R Completed 07/19/2009 Mammogram Completed Encounters Type Date Location Provider CPT E/M Dx Office Visit 06/14/2017 [facility] [address] G40.209 10:59a C71.9 Office Visit 06/11/2017 10:54a [facility] [address] G40.209 C71.9 Office Visit 05/10/2017 3:45p [facility] [address] G40.209 C71.9 Office Visit 05/04/2017 6:30p [facility], Elham Khan, 96226 N39.0 Hospitalists Milagros R13.10 C71.9 F41.8 Office Visit 05/03/2017 6:29p [facility],simona Khan, 96197 N39.0 Hospitalists Milagros R13.10 C71.9 Office Visit 05/02/2017 6:29p [facility] Caro Zheng, 77175 N39.0 Assoc, SIGNAL PERSON Hospitalists R13.10 C71.9 Office Visit 05/01/2017 6:28p [facility] Caro Zheng, 98988 N39.0 Assoc,pc SIGNAL PERSON Hospitalists R13.10 C71.9 Office Visit 01/07/2017 4:30p [facility] [place] [address] R94.02 Services Of [facility] R55 R11.0 F06.4 Office Visit 12/11/2016 1:00p [place] [address] R55 Services Of [facility] Office Visit 10/03/2013 11:04a [facility], Regan Kidd M.D. 09765 492.8 Hospitalists 780.2 300.00 311 Office Visit 10/01/2013 11:02a [facility], Everardo Hardwick, 57193 492.8 Hospitalists N.P. 780.2 300.00 311 Office Visit 06/04/2013 1:00p [facility] Deya Munoz, 65252 726.33 Of Denae Linares 726.32 Office Visit 03/20/2013 8:42a [facility] Allan SK. Joseph, 99652 780.59 M.D. 327.20 Office Visit 10/17/2011 1:40p [facility] Holly Novoa, 51650 272.4 M.D. 786.50 278.00 V72.81 Office Visit 11/24/2009 2:40p DO Not Use [facility], [address] [address] [place] M.D. 278.00 719.46 599.70 791.0 Office Visit 09/01/2009 2:40p DO Not Use [facility], [address] [address] [place] M.D. 756.12 724.5 278.00 272.4 724.02 307.42 Office Visit 07/20/2009 3:40p DO Not Use [facility], [address] [address] [place] M.D. 756.12 719.46 724.5 278.00 272.4 Office Visit 06/16/2009 2:00p DO Not Use [facility], 63627 756.12 [place] M.D. 719.46 724.5 724.02 786.2 466.0 278.00 Office Visit 08/26/2008 2:00p [facility] Rocky Kramer, 88965 719.45 Of [facility] M.DJuliana 756.12 Office Visit 08/17/2008 10:30a [facility] Rocky Kramer, 41332 756.12 Of [facility] M.DJuliana 719.46 724.5 719.45 Office Visit 07/02/2006 2:30p [facility] Rocky Kramer, 14526 756.12 Of Ruby Linares Plan of Care Future Appointment(s):12/25/2017 1:00 pm - Alanna Vyas MD at [facility] Uvlpft8308/19/2017 - Alanna Vyas MDG40.209 Local-rel symptc epi w cmplx prt seiz, not ntrct,w/o stat epiFollow up:: 3 MONTHSRecommendations:continue lamotrigine 100mg twice a day. Talk with Dr Galeano and Dominique about whether the steroids should be twice a day and what the next step is in terms of the chemotherapy because the tumor has progressed.C71.9 Malignant neoplasm of brain, unspecified
[2017-08-22] MEDS ORDERED: Potassium Chlor TAB* 20 MEQ TAB.ER PO ONE (17:28)
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
== END 2017-08-22 18:11 | disposition home or self-care (01) ==
LOC: ED 14:27
DX: S80.02XA Contusion of left knee, initial encounter (principal); E87.6 Hypokalemia; M25.562 Pain in left knee; Z86.79 Personal history of other diseases of the circulatory system; W19.XXXA Unspecified fall, initial encounter; Y92.002 Bathroom of unspecified non-institutional (private) residence as the place of occurrence of the external cause
CPT/HCPCS: 36415; 70450; 71046; 80053; 81003; 83605; 83735; 84443; 84484; 85025; 93005; 99282; A9270-GY

== ENCOUNTER 2017-08-30 16:21 | Inpatient (IN) | payer BC ==
[2017-08-30 17:23] LABS: ABS Basophils 0 10^3/ul (0-0.2); ABS Eosinophils 0 10^3/ul (0-0.6); ABS Lymphocytes 0.6 10^3/ul (1.0-4.8); ABS Monocytes 0.7 10^3/ul (0-0.8); ABS Neutrophils 7.2 10^3/ul (1.5-7.7); ABS Nucleated RBC 0 10^3/ul; Eosinophil % 0 % (0-6); Hematocrit 31 % (35-47); Hemoglobin 10.4 g/dl (12.0-16.0); Lymphocyte % 6.7 % (25-47); Mean Corpuscular HGB Conc 34 g/dl (31-36); Mean Corpuscular Hemoglobin 32 pg (27-31); Mean Corpuscular Volume 95 fL (80-97); Mean Platelet Volume 8 um3 (7.4-10.4); Nucleated Red Blood Cells % 0; Platelet Count 271 10^3/ul (150-450); Red Blood Count 3.26 10^6/ul (4.0-5.4); Red Cell Distribution Width 18 % (10.5-15); White Blood Count 8.5 10^3/ul (3.5-10.8)
[2017-08-30 17:33] LABS: INR 0.82 (0.77-1.02)
[2017-08-30 17:39] LABS: EGFR Non-African American 85.7 (>60)
--- NOTE | 2017-08-30 17:46 | RAD ---
Indication: Seizures. LEFT side facial numbness. History of malignant brain neoplasm. Comparison: August 22, 2017 CT. July 24, 2017 MRI. Technique: Noncontrast CT vertex of skull through foramen magnum. Report: Extensive vasogenic edema at the RIGHT frontal, temporal, and parietal lobes with associated hemispheric sulcal effacement and up to 0.6 cm leftward midline shift and compression of the RIGHT lateral ventricle. Mild interval decrease in magnitude of midline shift and compression of the LEFT lateral ventricle. Unchanged compression of the third ventricle. Patent fourth ventricle and basal cisterns. Negative for intra or extra-axial hemorrhage. No new intra-axial or extra-axial lesions evident. Unremarkable orbital contents. Negative for suspicious calvarial or skull base lesions. Indolent thickening of the inner table of the frontal bone noted. Clear visualized paranasal sinuses and mastoid air spaces. Unremarkable scalp. IMPRESSION: Extensive vasogenic edema at the RIGHT cerebral hemisphere corresponding with history of neoplasm. Mild interval decrease in magnitude of mass effect compared with the August 22, 2017 exam. No new intra-axial lesion or intracranial hemorrhage evident.
[2017-08-30 17:51] LABS: Urine Appearance Clear; Urine Blood Negative (Negative); Urine Color Yellow; Urine Ketones Negative (Negative); Urine Protein Negative (Negative); Urine Specific Gravity 1.015 (1.010-1.030); Urine Urobilinogen Negative (Negative)
[2017-08-30] MEDS ORDERED: Codeine TAB* 30 MG PO ONE (18:41)
[2017-08-30] MEDS ORDERED: Omeprazole CAP* 20 MG PO PRN (20:09)
[2017-08-30] MEDS ORDERED: Ondansetron INJ* 2 MG/ML VIAL IV ONE (20:15)
[2017-08-30] MEDS ORDERED: [UNRECOGNIZED DRUG - OTHER] PO SCH (20:15)
[2017-08-30] MEDS ORDERED: LORazepam INJ* 2 MG/ML 1 ML VIAL IV PUSH PRN (20:20)
[2017-08-30] MEDS ORDERED: TEMOZOLOMIDE PO SCH (21:00)
[2017-08-30] MEDS ORDERED: TEMOZOLOMIDE 20 MG PO SCH (21:00)
[2017-08-30] MEDS ORDERED: lamoTRIgine TAB(*) 25 MG PO SCH (21:00)
--- NOTE | 2017-08-30 21:25 | RAD ---
INDICATION: On home oxygen. Seizures. Brain tumor. History of pneumonia. COMPARISON: August 22, 2017 and October 01, 2013 chest radiographs. TECHNIQUE: Dual energy PA and routine lateral views of the chest were obtained. REPORT: RIGHT nipple shadow noted. Elevated lung volumes and patchy rarefaction of the mid to upper lung zone interstitial markings. No focal pulmonary lesion, compelling alveolar consolidation, pleural effusion, pneumothorax. The heart, pulmonary vasculature, and mediastinal contours are unremarkable. IMPRESSION: Stigmata of obstructive lung disease. No acute pulmonary or cardiac process evident.
[2017-08-30] MEDS: Codeine TAB* 30 MG PO PRN (22:36)
[2017-08-30] MEDS: Dexamethasone TAB* 4 MG PO SCH (22:37)
[2017-08-30] MEDS: lamoTRIgine TAB(*) 25 MG PO SCH (22:37)
[2017-08-30] MEDS: lamoTRIgine TAB(*) 100 MG PO SCH (22:37)
[2017-08-30] MEDS: Enoxaparin(*) 40 MG/0.4 ML SYR SUBCUT SCH (23:12)
[2017-08-31] MEDS: Codeine TAB* 30 MG PO PRN ×5 (04:20→23:53)
[2017-08-31] MEDS: Ondansetron INJ* 2 MG/ML VIAL IV PRN ×3 (05:06→20:22)
[2017-08-31] MEDS: Dexamethasone TAB* 4 MG PO SCH ×2 (08:43→20:54)
[2017-08-31] MEDS: lamoTRIgine TAB(*) 25 MG PO SCH ×2 (08:43→20:54)
[2017-08-31] MEDS: lamoTRIgine TAB(*) 100 MG PO SCH ×2 (08:43→20:54)
[2017-08-31] MEDS: Calcium Acetate CAP* 667 MG PO SCH (08:43)
--- NOTE | 2017-08-31 08:51 | PN ---
Subjective Date of Service: 08/31/17 Interval History: . Patient reports she feels much better today no further seizures. Reports a lot of anxiety reporting last night she didnt want to fall asleep d/t worried about having another seizure. She reports frequent anxiety at night time. Reports hx of taking Klonopin in the past and tolerating it well. Denies pain, VILLALTA, Vision changes. Reports she feels steady on her feet. Objective Active Medications: Calcium Acetate (Phoslo Cap*) 667 mg PO DAILY [facility] Last Admin: 08/31/17 08:43 Dose: 667 mg Codeine Sulfate (Codeine Tab*) 120 mg PO Q4H PRN PRN Reason: PAIN - MODERATE TO SEVERE Last Admin: 08/31/17 08:43 Dose: 120 mg Dexamethasone (Decadron Tab*) 4 mg PO BID [facility] Last Admin: 08/31/17 08:43 Dose: 4 mg Enoxaparin Sodium (Lovenox(*)) 40 mg SUBCUT Q24H [facility] Last Admin: 08/30/17 23:12 Dose: Not Given Lamotrigine (Lamictal Tab(*)) 100 mg PO BID [facility] Last Admin: 08/31/17 08:43 Dose: 100 mg Lamotrigine (Lamictal Tab(*)) 25 mg PO BID [facility] Last Admin: 08/31/17 08:43 Dose: 25 mg Lorazepam (Ativan Inj*) 0.5 mg IV PUSH Q4H PRN PRN Reason: seizures Last Admin: 08/31/17 00:14 Dose: 0.5 mg Pto:Non Formulary Med* (Temozolomide [ Temozolomide] 200 Mg ) 200 mg PO QPM [facility] Last Admin: 08/30/17 20:51 Dose: 200 mg Pto:Non Formulary Med (Temozolomide 20mg Capsule) 1 dose PO QPM [facility] Last Admin: 08/30/17 20:51 Dose: 1 dose Omeprazole (Prilosec Cap*) 20 mg PO DAILY PRN; Protocol PRN Reason: NAUSEA Ondansetron HCl (Zofran Inj*) 4 mg IV Q6H PRN PRN Reason: NAUSEA Last Admin: 08/31/17 05:06 Dose: 4 mg Trimethoprim/Sulfamethoxazole (Bactrim Ss 400/80 Tab*) 1 tab PO .THREETIMESWEEKLY [facility] Vital Signs - 8 hr 08/31/17 08/31/17 08/31/17 01:45 01:50 04:20 Temperature Pulse Rate Respiratory 20 20 16 Rate Blood Pressure (mmHg) O2 Sat by Pulse Oximetry 08/31/17 08/31/17 08/31/17 04:58 06:54 08:43 Temperature 99.4 F Pulse Rate 71 Respiratory 20 16 16 Rate Blood Pressure 128/76 (mmHg) O2 Sat by Pulse 99 Oximetry Oxygen Devices in Use Now: None Appearance: Thin 62 yo female sitting up in bed in NAD. A+Ox3 Eyes: No Scleral Icterus, PERRLA Ears/Nose/Mouth/Throat: NL Teeth, Lips, Gums, Mucous Membranes Moist Neck: NL Appearance and Movements; NL JVP Respiratory: Symmetrical Chest Expansion and Respiratory Effort, Clear to Auscultation Cardiovascular: NL Sounds; No Murmurs; No JVD, RRR, No Edema Abdominal: NL Sounds; No Tenderness; No Distention Extremities: No Edema, No Clubbing, Cyanosis Skin: No Rash or Ulcers, No Nodules or Sclerosis Neurological: Alert and Oriented x 3, NL Sensation, NL Muscle Strength and Tone Lines/Tubes/Other Access: Clean, Dry and Intact Peripheral IV Nutrition: Taking PO's Result Diagrams: 08/30/17 17:10 08/30/17 17:10 Assess/Plan/Problems-Billing Assessment: 62 yo female with a PMH of R hemisphere brain tumor with massive cerebral edema, hx of seizure disorder who presented yesterday with seizure activity. - Patient Problems (1) Seizure Comment: - 3 seizures yesterday secondary to cerebral edema. No further seizure activity. - Seizure precautions, Neuro checks - Continue lamotrigine, just recently increased as an outpt - Decadron increase yesterday by neurology to 4 mg BID - Discussed with Dr. Jones (2) Brain cancer Comment: On Temozolomide (3) Anxiety and depression Comment: - Continue ativan PRN - was on valium as outpt but was discontinued several weeks ago d/t falls and feeling lethargic. Was only taking on a PRN basis. Neurology was considering evening dose of clonazepam at night as outpatient but was on hold d/t falls/ lethargy from valium. Discussed with Neurology today and plan to trial Klonopin tonight and monitor for side effects of lethargy/gait abnormalities. (4) DVT prophylaxis Comment: - SQ Lovenox Q24 (5) Full code status Status and Disposition: OBV switch to inpatient for further seizure monitoring and trial klonopin.
[2017-08-31] MEDS ORDERED: Dexamethasone TAB* 4 MG PO SCH (09:00)
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
[2017-08-31] MEDS ORDERED: TEMOZOLOMIDE 20 MG PO SCH (20:45)
[2017-08-31] MEDS ORDERED: TEMOZOLOMIDE PO SCH (20:45)
[2017-08-31] MEDS: Enoxaparin(*) 40 MG/0.4 ML SYR SUBCUT SCH (20:56)
[2017-08-31] MEDS ORDERED: clonazePAM TAB(*) 0.5 MG PO ONE (21:00)
--- NOTE | 2017-08-31 21:16 | HP ---
CC: Dr. Sifuentes; Dr. Vyas; Dr. Galeano, [place] ADMISSION HISTORY AND PHYSICAL: DATE OF ADMISSION: CHIEF COMPLAINT: Seizure. 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 Each one caused left facial droop and dysarthria and lasted about 5 minutes. She also had a seizure on Saturday of similar nature. The seizure issue was thought to be due to her known astrocytoma and also to recent radiation treatment of that area and residual vasogenic edema around the tumor. Dr. Vyas addressed the seizure issue yesterday with an increase of 100 to 125 b.i.d. of lamotrigine. Today, because of the recurring seizures, Dr. Vyas advised the patient to be observed overnight to make sure that the increased lamotrigine is working to prevent seizures. She has only been on the increased dose for about 24 hours. The patient's astrocytoma was diagnosed last year on admission here in May 2017. She had finished radiation treatment recently. She is followed by Oncology in [facility] with Dr. Galeano. She is currently on oral chemotherapy agent, temozolomide 220 mg every evening. The cycle is for 5 days on and 23 days off and this is day 2 at this point of the cycle. The patient also has chronic pain from her tumor. She [place] [facility] [place] note from early August shows that she was supposed to be taking topical fentanyl patches 50 mcg every 3 days. The patient states that she stopped this 4 to 5 days ago because that made her feel wobbly. That note also shows she had an increased dose of codeine 60 to 120 mg q.4 hours at that visit. She states the codeine 60 mg given earlier today in the emergency room did not help her with her pain. The patient reports she was told she has pneumonia over the last 3 weeks. She does not remember whether she had chest x-ray. She does not have any cough or hemoptysis. PAST MEDICAL HISTORY: Includes anxiety, depression, sleep apnea, COPD, spinal stenosis, GERD, and history of esophageal strictures. PAST SURGICAL HISTORY: Includes Darryl-en-Y bariatric surgery 5 years ago, D and C, tonsillectomy, and knee surgery. MEDICATIONS: Current medications on admission are: 1. Calcium acetate 667 mg p.o. daily. 2. Codeine 60 mg 1 to 2 tablets p.o. q.4 hours p.r.n. 3. Dexamethasone 4 mg p.o. q.a.m. 4. Nexium 40 mg p.o. daily. 5. Lamotrigine 125 mg p.o. b.i.d. 6. Multivitamin 1 tab p.o. daily. 7. Zofran 4 mg p.o. or sublingual q.6 hours p.r.n. 8. Bactrim single strength 1 tab p.o. 3 times a week. 9. Temozolomide 220 mg p.o. q.p.m. for 5 days on and 23 days off. SOCIAL HISTORY: She is disabled web designer. She is . She has 1 child. Her healthcare proxy is Pina, who also works with her as a nurse and manages her medications. She does not smoke. She does not use alcohol or recreational drugs. FAMILY HISTORY: Mother had leukemia. Father when the patient was very young. There are second-degree relatives with colon cancer, liver cancer, and lung cancer in her family. REVIEW OF SYSTEMS: The patient denies any fevers, weight loss, or anorexia. The patient denies any chest pain or palpitations. The patient denies any shortness of breath. The patient has nausea from the chemotherapy and takes Zofran prior to the oral alkylating agent. The patient reports a headache today on the left side, which is typical for her chronic pain. Remainder of her 14-point review of systems is negative other than that mentioned in the HPI. PHYSICAL EXAMINATION GENERAL: She is alert, older woman, in no acute distress. VITAL SIGNS: Temperature 37.7, pulse 65, respirations 16, blood pressure is 137 /84, O2 saturation 97%. HEENT: Head is normocephalic, atraumatic. Sclerae anicteric. Pupils equal, round, reactive to light and accommodation. Oropharynx is moist, no lesions. NECK: No JVD. No carotid bruits. No thyromegaly. LUNGS: Clear to auscultation and percussion bilaterally. HEART: Regular rate and rhythm without murmurs or gallops. ABDOMEN: Soft, nontender. Positive bowel sounds. No hepatosplenomegaly. EXTREMITIES: No peripheral edema. Dorsalis pedis pulses are 1+ bilaterally. NEUROLOGIC: Cranial nerves II through XII are intact. Motor strength is 5/5 throughout. Deep tendon reflexes are symmetric. PSYCHIATRIC: She is alert and oriented x3. She has some anxiety and depression. LABORATORY DATA/DIAGNOSTIC STUDIES: Sodium 136, potassium 4.5, chloride 102, bicarb 28, BUN 18, creatinine 0.69, glucose 92. Calcium 8.8. Magnesium 2.3. Lactic acid 1.3. Albumin 3.7, AST 20, ALT 52, bilirubin 0.3. White count 8.5, hemoglobin 10.4, hematocrit 31%, platelets are 271. INR 0.82. Urinalysis is negative. Head CT shows vasogenic edema in the right cerebral hemisphere and decreased mass effect from previous. Chest x-ray is pending. ASSESSMENT AND PLAN: Partial seizures apparently due to tumor and edema from radiation treatment. Temodar has also been known to cause seizures. I discussed the case with Dr. Vyas and she advised the patient to stay on recurrent dose of lamotrigine and have Ativan as needed if she has a seizure. She does not believe that the Temodar is causing the seizures. I spoke to Dr. Emerson about the oncology treatment and she was initially in favor of holding Temodar due to the patient's worsened status; however, the patient is adamant about taking it and Dr. Emerson is in agreement with that she could take it safely given that her platelets are normal and that the seizures are likely caused by the primary process. The patient reports history of pneumonia. We will check a chest x-ray on admission. I do not intend to give her antibiotics at this point unless she has a clear febrile illness with infiltrate. Fluids, electrolytes. She appears to be euvolemic. She can have a normal diet. Code status is full. The patient is at high risk of deep venous thrombosis given her active cancer treatment, so she is to have subcutaneous Lovenox while she is here in the hospital. [id number]/[facility] #: [id number] [facility] HOSPITALNehemias
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
[2017-09-01 08:09] VITALS: BP 140/76
[2017-09-01] MEDS: Calcium Acetate CAP* 667 MG PO SCH (08:11)
[2017-09-01] MEDS: Dexamethasone TAB* 4 MG PO SCH (08:11)
[2017-09-01] MEDS: Codeine TAB* 30 MG PO PRN ×2 (08:12→12:19)
[2017-09-01] MEDS: lamoTRIgine TAB(*) 25 MG PO SCH (08:12)
[2017-09-01] MEDS: lamoTRIgine TAB(*) 100 MG PO SCH (08:12)
--- NOTE | 2017-09-01 08:57 | DCNOTE ---
Subjective Date of Service: 09/01/17 Interval History: Reports she is feeling better today with increased strength in her left side. She denies any VILLALTA, vision changes. Reports steady gait when ambulating. Denies drowsiness or confusion and feels that she has tolerated the Klonopin well and would like to try it going home. She feels ready for discharge. No further seizures. Pt asked if she could take Ambien as well which she states she has a bottle at home (but is not listed on med list) she uses it "every once in a while". Discussed with the pt to discontinue this medication d/t side effects and hx of instability and risk of falls. Objective Active Medications: Calcium Acetate (Phoslo Cap*) 667 mg PO DAILY [facility] Last Admin: 09/01/17 08:11 Dose: 667 mg Codeine Sulfate (Codeine Tab*) 120 mg PO Q4H PRN PRN Reason: PAIN - MODERATE TO SEVERE Last Admin: 09/01/17 08:12 Dose: 120 mg Dexamethasone (Decadron Tab*) 4 mg PO BID [facility] Last Admin: 09/01/17 08:11 Dose: 4 mg Enoxaparin Sodium (Lovenox(*)) 40 mg SUBCUT Q24H [facility] Last Admin: 08/31/17 20:56 Dose: Not Given Lamotrigine (Lamictal Tab(*)) 100 mg PO BID [facility] Last Admin: 09/01/17 08:12 Dose: 100 mg Lamotrigine (Lamictal Tab(*)) 25 mg PO BID [facility] Last Admin: 09/01/17 08:12 Dose: 25 mg Lorazepam (Ativan Inj*) 0.5 mg IV PUSH Q4H PRN PRN Reason: seizures Last Admin: 08/31/17 00:14 Dose: 0.5 mg Pto:Non Formulary Med (Temozolomide 20mg Capsule) 1 dose PO 2044 [facility] Last Admin: 08/31/17 20:53 Dose: 1 dose Pto:Non Formulary Med* (Temozolomide [ Temozolomide] 200 Mg ) 200 mg PO 2044 [facility] Last Admin: 08/31/17 20:53 Dose: 200 mg Omeprazole (Prilosec Cap*) 20 mg PO DAILY PRN; Protocol PRN Reason: NAUSEA Ondansetron HCl (Zofran Inj*) 4 mg IV Q6H PRN PRN Reason: NAUSEA Last Admin: 08/31/17 20:22 Dose: 4 mg Trimethoprim/Sulfamethoxazole (Bactrim Ss 400/80 Tab*) 1 tab PO .THREETIMESWEEKLY [facility] Vital Signs - 8 hr 09/01/17 09/01/17 09/01/17 02:57 08:01 08:12 Temperature 99.1 F Pulse Rate 74 Respiratory 18 20 16 Rate Blood Pressure 140/76 (mmHg) O2 Sat by Pulse 100 Oximetry Oxygen Devices in Use Now: None Appearance: 62 yo female thin, A+Ox3 in NAD, mildy forgetful but easily reoriented. Eyes: No Scleral Icterus, PERRLA Ears/Nose/Mouth/Throat: NL Teeth, Lips, Gums, Mucous Membranes Moist, - - no thrush noted in oral cavity Neck: NL Appearance and Movements; NL JVP Respiratory: Symmetrical Chest Expansion and Respiratory Effort, Clear to Auscultation Cardiovascular: NL Sounds; No Murmurs; No JVD, RRR, No Edema Abdominal: NL Sounds; No Tenderness; No Distention Extremities: No Edema, No Clubbing, Cyanosis Skin: No Rash or Ulcers, No Nodules or Sclerosis Neurological: Alert and Oriented x 3, NL Sensation, NL Gait, - - strength is 4/ 5 Lines/Tubes/Other Access: Clean, Dry and Intact Peripheral IV Nutrition: Taking PO's Result Diagrams: 08/30/17 17:10 08/30/17 17:10 Additional Lab and Data: Lab Results 08/30/17 08/30/17 08/30/17 Range/Units 17:10 17:10 17:10 WBC 8.5 (3.5-10.8) 10^3/ul RBC 3.26 L (4.0-5.4) 10^6/ul Hgb 10.4 L (12.0-16.0) g/dl Hct 31 L (35-47) % MCV 95 (80-97) fL MCH 32 H (27-31) pg MCHC 34 (31-36) g/dl RDW 18 H (10.5-15) % Plt Count 271 (150-450) 10^3/ul MPV 8 (7.4-10.4) um3 Neut % (Auto) 84.7 H (38-83) % Lymph % (Auto) 6.7 L (25-47) % Sherman % (Auto) 8.3 H (0-7) % Eos % (Auto) 0 (0-6) % Baso % (Auto) 0.3 (0-2) % Absolute Neuts (auto) 7.2 (1.5-7.7) 10^3/ul Absolute Lymphs (auto) 0.6 L (1.0-4.8) 10^3/ul Absolute Monos (auto) 0.7 (0-0.8) 10^3/ul Absolute Eos (auto) 0 (0-0.6) 10^3/ul Absolute Basos (auto) 0 (0-0.2) 10^3/ul Absolute Nucleated RBC 0 10^3/ul Nucleated RBC % 0 INR (Anticoag Therapy) 0.82 (0.77-1.02) Sodium 136 (133-145) mmol/L Potassium 4.5 (3.5-5.0) mmol/L Chloride 102 (101-111) mmol/L Carbon Dioxide 28 (22-32) mmol/L Anion Gap 6 (2-11) mmol/L BUN 18 (6-24) mg/dL Creatinine 0.69 (0.51-0.95) mg/dL Est GFR ( Amer) 110.2 (>60) Est GFR (Non-Af Amer) 85.7 (>60) BUN/Creatinine Ratio 26.1 H (8-20) Glucose 92 (70-100) mg/dL Lactic Acid (0.5-2.0) mmol/L Calcium 8.8 (8.6-10.3) mg/dL Magnesium 2.3 (1.9-2.7) mg/dL Total Bilirubin 0.30 (0.2-1.0) mg/dL AST 20 (13-39) U/L ALT 52 (7-52) U/L Alkaline Phosphatase 44 (34-104) U/L Total Protein 6.0 L (6.4-8.9) g/dL Albumin 3.7 (3.2-5.2) g/dL Globulin 2.3 (2-4) g/dL Albumin/Globulin Ratio 1.6 (1-3) Urine Color Urine Appearance Urine pH (5-9) Ur Specific [place] (1.010-1.030) Urine Protein (Negative) Urine Ketones (Negative) Urine Blood (Negative) Urine Nitrate (Negative) Urine Bilirubin (Negative) Urine Urobilinogen (Negative) Ur Leukocyte Esterase (Negative) Urine Glucose (Negative) 08/30/17 08/30/17 Range/Units 17:10 17:35 WBC (3.5-10.8) 10^3/ul RBC (4.0-5.4) 10^6/ul Hgb (12.0-16.0) g/dl Hct (35-47) % MCV (80-97) fL MCH (27-31) pg MCHC (31-36) g/dl RDW (10.5-15) % Plt Count (150-450) 10^3/ul MPV (7.4-10.4) um3 Neut % (Auto) (38-83) % Lymph % (Auto) (25-47) % Sherman % (Auto) (0-7) % Eos % (Auto) (0-6) % Baso % (Auto) (0-2) % Absolute Neuts (auto) (1.5-7.7) 10^3/ul Absolute Lymphs (auto) (1.0-4.8) 10^3/ul Absolute Monos (auto) (0-0.8) 10^3/ul Absolute Eos (auto) (0-0.6) 10^3/ul Absolute Basos (auto) (0-0.2) 10^3/ul Absolute Nucleated RBC 10^3/ul Nucleated RBC % INR (Anticoag Therapy) (0.77-1.02) Sodium (133-145) mmol/L Potassium (3.5-5.0) mmol/L Chloride (101-111) mmol/L Carbon Dioxide (22-32) mmol/L Anion Gap (2-11) mmol/L BUN (6-24) mg/dL Creatinine (0.51-0.95) mg/dL Est GFR ( Amer) (>60) Est GFR (Non-Af Amer) (>60) BUN/Creatinine Ratio (8-20) Glucose (70-100) mg/dL Lactic Acid 1.3 (0.5-2.0) mmol/L Calcium (8.6-10.3) mg/dL Magnesium (1.9-2.7) mg/dL Total Bilirubin (0.2-1.0) mg/dL AST (13-39) U/L ALT (7-52) U/L Alkaline Phosphatase (34-104) U/L Total Protein (6.4-8.9) g/dL Albumin (3.2-5.2) g/dL Globulin (2-4) g/dL Albumin/Globulin Ratio (1-3) Urine Color Yellow Urine Appearance Clear Urine pH 5.0 (5-9) Ur Specific [place] 1.015 (1.010-1.030) Urine Protein Negative (Negative) Urine Ketones Negative (Negative) Urine Blood Negative (Negative) Urine Nitrate Negative (Negative) Urine Bilirubin Negative (Negative) Urine Urobilinogen Negative (Negative) Ur Leukocyte Esterase Negative (Negative) Urine Glucose Negative (Negative) Assess/Plan/Problems-Billing Assessment: 62 yo female with a PMH of R hemisphere brain tumor with massive cerebral edema, hx of seizure disorder who presented yesterday with seizure activity. - Patient Problems (1) Seizure Comment: - 3 seizures on day of admission with 1 seizure on sat at home, secondary to cerebral edema? No further seizure activity since admission. - Seizure precautions, Neuro checks - Continue lamotrigine, just recently increased as an outpt - Decadron increase on admission by neurology to 4 mg BID - Discussed with Dr. Jones. F/U with primary Dr. Vyas as outpt (2) Brain cancer Comment: On Temozolomide Follow with oncology as previously schedule MRI showed the tumor was a little decreased in size (3) Anxiety and depression Comment: - was on valium as outpt but was discontinued several weeks ago d/t falls and feeling lethargic. Was only taking on a PRN basis. Neurology was considering evening dose of clonazepam at night as outpatient but was on hold d/t falls/ lethargy from valium. Discussed with Neurology and Klonopin was trialed last evening with good success without side effects of lethargy/gait abnormalities. (4) DVT prophylaxis Comment: - SQ Lovenox Q24 (5) Full code status Status and Disposition: Plan for DC to home. Stable.
[2017-09-01] MEDS ORDERED: Sulfamethox/Trimethoprim SS 400/80* TAB PO SCH (09:00)
--- NOTE | 2017-09-02 00:44 | PN ---
CC: Dr. Alanna Vyas* FOLLOWUP NOTE: DATE OF FOLLOWUP: 09/01/17 HISTORY OF PRESENT ILLNESS: Overnight, there has been no seizures. Jacob feels well this morning. She has had difficulty with anxiety and insomnia and was given 0.25 mg of clonazepam last evening. Hence, no difficulty with further instability was noted. Her exam this morning was stable. She had her dexamethasone increased to 4 mg p.o. b.i.d. on admission. PHYSICAL EXAMINATION: On examination today, her most recent temperature was 99.1 degree Fahrenheit. His pulse was 74 and regular. Respiratory rate was 16. Saturation was 100% on room air and her blood pressure was 140/76. She was awake, alert, showed appropriate concern. Her facial expression was slightly asymmetric at baseline, but activated well. There was a left pronator drift. She gave good strength in her arm with the exception of her left hand intrinsic hand muscles, which were about 4+/5. In her lower extremity, she had 5-/5 in left hip flexion and otherwise had good strength. When she walked, she favored her left side with decreased arm swing of the left arm and slight favoring of the left leg. Her Romberg was negative. She was able to stand on her heels and toes when holding on to the examiner's hands. MAR was reviewed and she continues on lamotrigine 125 mg p.o. b.i.d., increased dose of dexamethasone of 4 mg b.i.d. and low dose clonazepam was given last night at 0.25 mg. 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 Major changes that have taken place, include dexamethasone increased to 4 mg p.o. b.i.d. In addition, she was given clonazepam 0.25 mg last night and did tolerate it well. From history and observation during admission, anxiety may be driving the insomnia. She has started on Lexapro. In regards to her seizures, the clonazepam may give some protection. Her lamotrigine was recently increased and her steroids were also increased. At this point, she is going to be discharged home. her healthcare proxy and friend, Pina Dunawayuss, will be working on getting further coverage at night at home and is also working on setting up her pill box for her. At this point, on the higher dose of dexamethasone as well as for now using a regular dose of clonazepam 0.25 mg until further discussion with Dr. Vyas. I have asked that they call Dr. Vyas this week to determine next step. She may want to hold off on regular clonazepam use for seizures in the future and I will leave this determination to her. TIME SPENT: Over 15 minutes were spent in direct face to face patient care. Over 50% of the time was spent in education and counseling and discussion regarding care which took place with hospitalist team. [id number]/[facility] #: [id number] LOPEZ
--- NOTE | 2017-09-02 02:23 | DS ---
CC: Dr. Vyas; Dr. Sifuentes; Dr. Galeano in [place]* DISCHARGE SUMMARY: DATE OF ADMISSION: 08/31/17 DATE OF DISCHARGE: 09/01/17 PROVIDER: Anitha Pham NP ATTENDING PHYSICIAN: Dr. Abreu* (report dictated by Anitha Pham NP). NEUROLOGIST: Dr. Vyas. PRIMARY CARE PROVIDER: Dr. Sifuentes. DISCHARGE DIAGNOSIS: Seizure secondary to brain tumor and cerebral edema. SECONDARY DIAGNOSES: 1. Anxiety. 2. Depression. 3. Sleep apnea. 4. Chronic obstructive pulmonary disease. 5. Spinal stenosis. 6. Gastroesophageal reflux disease. 7. History of esophageal strictures, status post Darryl-en-Y bariatric surgery. HISTORY OF PRESENT ILLNESS AND HOSPITAL COURSE: Please see history and physical by Dr. 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 On the day of admission in which she presented to the emergency department on 08/30/17, she reported 3 seizures and reported a fourth seizure several days prior on Saturday. She recently saw Dr. Vyas as an outpatient and had her lamotrigine increased to 125 mg p.o. b.i.d. as an outpatient. She was on dexamethasone 4 mg p.o. daily on admission by the neurologist. This was increased to 4 mg p.o. b.i.d. The patient has not had any further seizures during her hospitalization. She underwent a CT of the brain, which showed "extensive vasogenic edema at the right cerebral hemisphere corresponding with history of neoplasm. Mild interval decrease in magnitude of mass effect compared with the 08/22/17 exam. No new intraaxial lesion or intracranial hemorrhage is evident. " On admission, she was seen by Dr. Vyas, neurologist and was further seen by neurologist, Dr. Jones. I spoke with Dr. Jones at length, who reports the patient is stable for discharge to home today. Discussed with Dr. Jones, was starting the patient on Klonopin as she was recently taken off of different benzodiazepine in which she was reporting she was feeling too lethargic at home and having falls. Per Dr. Jones, Dr. Vyas had been considering starting Klonopin at a very low dose just in the evening; however, there was concern of doing this regarding her night time report of getting up to the bathroom and feeling weak and unsteady on her feet. It was discussed to start this medication in the hospital, which was started last evening with Klonopin 0.25 mg p.o. q.h.s. in which the patient tolerated well. The patient denies feeling lethargic or unsteady on her feet during the night. She reports today she feels much stronger especially on her left side, which is her weaker side. Today, she reports that she feels mentally bright and clear and feels that she would like to try this medication at home. Dr. Jones and I discussed this at length and it was determined that the patient will be sent home on this medication and follow up with Dr. Vyas as an outpatient within the next 2 weeks. Otherwise, the patient appears to be doing well and is stable for discharge home today. DISCHARGE MEDICATIONS: Klonopin 0.25 mg p.o. q.h.s. New medications: 1. Dexamethasone 4 mg p.o. b.i.d. (increased dosage). 2. Lamictal 125 mg p.o. b.i.d. 3. Zofran 4 mg sublingual q.4 hours p.r.n. 4. Multivitamin with mineral 1 tab p.o. daily. 5. Nexium 40 mg p.o. daily p.r.n. 6. Codeine 60 mg p.o. q.3 hours p.r.n. 7. Bactrim 400/80 one tab p.o. 3 times weekly. On hold, calcium acetate (PhosLo) 500 mg p.o. daily. I discussed this with the patient as I am not sure why she is on PhosLo as it is a phosphate binder. I questioned either this was transcribed incorrectly on admission or possibly somebody put her on the wrong calcium supplementation. I told her to discuss this with her primary care provider and currently hold it for now. She has no apparent history of kidney disease or high phosphate as noted by her medical chart here. DISCHARGE PLAN: 1. Stable for discharge home. Discharge plan was discussed with her healthcare proxy. 2. Follow up with Dr. Vyas within 2 weeks. The patient was told to call her office to determine when Dr. Vyas wants to see her next. 3. Follow up with primary care provider within 1 to 2 weeks. DISPOSITION: The patient is stable for discharge home. TIME SPENT: Approximately 60 minutes was spent on this discharge. ANITHA PHAM NP [id number]/[facility] #: [id number] LOPEZ
== END 2017-09-01 13:23 | disposition home or self-care (01) | DRG 53 ==
LOC: ED 16:21 → MEDTELE 20:02 → OBSVTOIN 08-31 09:45
PROVIDERS: ADMIT Internal Medicine; ATTEND Internal Medicine
DX: G40.209 Localization-related (focal) (partial) symptomatic epilepsy and epileptic syndromes with complex partial seizures, not intractable, without status epilepticus (principal); G93.6 Cerebral edema; C71.0 Malignant neoplasm of cerebrum, except lobes and ventricles; F41.9 Anxiety disorder, unspecified; F32.9 Major depressive disorder, single episode, unspecified; G47.30 Sleep apnea, unspecified; G89.3 Neoplasm related pain (acute) (chronic); J44.9 Chronic obstructive pulmonary disease, unspecified; M48.00 Spinal stenosis, site unspecified; K21.9 Gastro-esophageal reflux disease without esophagitis; M94.0 Chondrocostal junction syndrome [Tietze]; E78.5 Hyperlipidemia, unspecified; Z98.84 Bariatric surgery status; Z79.891 Long term (current) use of opiate analgesic; Z79.899 Other long term (current) drug therapy; Z80.6 Family history of leukemia; Z80.0 Family history of malignant neoplasm of digestive organs; Z80.1 Family history of malignant neoplasm of trachea, bronchus and lung; Z92.3 Personal history of irradiation
CPT/HCPCS: 36415; 70450; 71046; 80053; 81003; 83605; 83735; 85025; 85610; 99284; A9270-GY; J1650; J2060; J2405; J8540

== ENCOUNTER 2017-10-11 23:06 | Emergency (ER) | payer BC ==
[2017-10-12 00:25] LABS: ABS Basophils 0 10^3/ul (0-0.2); ABS Eosinophils 0 10^3/ul (0-0.6); ABS Lymphocytes 0.7 10^3/ul (1.0-4.8); ABS Monocytes 0.2 10^3/ul (0-0.8); ABS Neutrophils 7.1 10^3/ul (1.5-7.7); ABS Nucleated RBC 0 10^3/ul; Eosinophil % 0.2 % (0-6); Hematocrit 33 % (35-47); Hemoglobin 11.2 g/dl (12.0-16.0); Lymphocyte % 8.2 % (25-47); Mean Corpuscular HGB Conc 34 g/dl (31-36); Mean Corpuscular Hemoglobin 31 pg (27-31); Mean Corpuscular Volume 93 fL (80-97); Mean Platelet Volume 6.5 um3 (7.4-10.4); Nucleated Red Blood Cells % 0; Platelet Count 222 10^3/ul (150-450); Red Blood Count 3.59 10^6/ul (4.0-5.4); Red Cell Distribution Width 15 % (10.5-15)
[2017-10-12 00:31] LABS: INR 0.86 (0.77-1.02)
[2017-10-12 00:41] LABS: EGFR Non-African American 74.4 (>60)
[2017-10-12] MEDS ORDERED: NS 0.9% 1000 ML* 1,000 ML IV SCH (01:00)
[2017-10-12] MEDS ORDERED: Codeine TAB* 30 MG ONE (01:11)
[2017-10-12] MEDS ORDERED: Codeine TAB* 30 MG PO ONE (01:12)
[2017-10-12 02:09] LABS: Urine Appearance Clear; Urine Blood Negative (Negative); Urine Color Yellow; Urine Ketones Negative (Negative); Urine Protein Negative (Negative); Urine Specific Gravity 1.025 (1.010-1.030); Urine Urobilinogen Negative (Negative)
[2017-10-12 02:54] VITALS: BP 110/64
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
--- NOTE | 2017-10-12 08:59 | RAD ---
INDICATION: Weakness. Requisition reports right sided brain cancer with vasogenic edema. COMPARISON: Most recent CT of the brain is dated August 30, 2017 and MRI of the brain September 16, 2017 TECHNIQUE: Contiguous axial sections of the brain were obtained from the skull base to the vertex without contrast. FINDINGS: The ventricles, cisterns and sulci are within normal limits. There is no significant midline shift or evidence of intracranial herniation. There is vasogenic edema involving the white matter tracts of the right hemisphere but this appears to be slightly reduced when compared to the most recent CT of the brain dated August 30, 2017. There is a heterogeneous mass measuring 3 cm at the right temporal lobe corresponding to the largest of 3 masses seen on the prior MRI of the brain. There is no evidence for acute intracranial hemorrhage. No significant focal osseous abnormality is present. Incidentally noted is hyperostosis frontalis interna. The visualized portion of the paranasal sinuses appear clear. The mastoid air cells are well aerated bilaterally. IMPRESSION: There is been a small degree of reduction in the severity of right hemisphere vasogenic edema relative to the August 30, 2017 CT of the brain. There is no severe midline shift or evidence of intracranial herniation. The heterogeneous mass at the right temporal lobe corresponds to the largest of several intracranial masses identified on the prior MRI of the brain. Overall there is been no substantial change in the appearance of the brain when compared to the most recent CT and MR of the brain. If it will influence clinical management, superior characterization can be made with contrast-enhanced MRI of the brain.
== END 2017-10-12 02:46 | disposition home or self-care (01) ==
LOC: ED 23:06
DX: C71.9 Malignant neoplasm of brain, unspecified (principal); R19.7 Diarrhea, unspecified; R26.81 Unsteadiness on feet; R25.1 Tremor, unspecified; Z86.79 Personal history of other diseases of the circulatory system
CPT/HCPCS: 36415; 70450; 80053; 81003; 85025; 85610; 85730; 99282; A9270-GY

== ENCOUNTER 2017-11-15 23:09 | Inpatient (IN) | payer BC ==
[2017-11-16 00:37] LABS: Hematocrit 21 % (35-47); Mean Corpuscular HGB Conc 34 g/dl (31-36); Mean Corpuscular Hemoglobin 30 pg (27-31); Mean Corpuscular Volume 89 fL (80-97); Platelet Count 218 10^3/ul (150-450); Red Blood Count 2.36 10^6/ul (4.0-5.4); Red Cell Distribution Width 15 % (10.5-15); White Blood Count 9.4 10^3/ul (3.5-10.8)
[2017-11-16 00:54] LABS: EGFR Non-African American 81.6 (>60)
[2017-11-16 01:27] LABS: ABS Basophils 0.1 10^3/ul (0-0.2); ABS Eosinophils 0 10^3/ul (0-0.6); ABS Lymphocytes 1.3 10^3/ul (1.0-4.8); ABS Monocytes 0.7 10^3/ul (0-0.8); ABS Neutrophils 7.2 10^3/ul (1.5-7.7); ABS Nucleated RBC 0 10^3/ul; Eosinophil % 0.3 % (0-6); Lymphocyte % 14.1 % (25-47); Nucleated Red Blood Cells % 0.1
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
[2017-11-16] MEDS ORDERED: CMCS: Melatonin (NF) 3 MG TAB PO PRN (03:34)
[2017-11-16] MEDS ORDERED: Albuterol 2.5 MG/3 ML NEB.SOL* (0.083%) INH PRN (03:34)
--- NOTE | 2017-11-16 06:28 | HP ---
H&P (Free Text) History and Physical: PCP: Do Sifuentes MD Oncology: Rui Medrano MD Date/Time: 11/16/2017 0320 CC: swollen legs, generalized weakness HPI: Mrs Erik Echeverria is a 62YO female who initiated chemotherapy for an astrocytoma ~10 days ago. In the interval she has had progressive generalized weakness now leaving her unable to ambulate. She relates BLE swelling over the past 2 days, but no SOB, chest pain, F/C, cough, congestion, hemoptysis, change in sweats, black/bloody stools, or other issues. Evaluation reveals a HGB of 7.0 , down from 10.8 on 11/07. PMedHx astrocytoma on therapy COPD spinal stenosis GERD esophageal strictures anxiety/depression Ambulatory Orders Nursing to reconcile. Multivitamins/Minerals TAB* [Theragran/minerals TAB*] 1 tab PO DAILY 05/01/17 Ondansetron ODT TAB* [Zofran 4 MG Odt TAB*] 4 mg SL Q6H PRN MDD 3 05/01/17 Esomeprazole(NF) [Nexium(NF)] 40 mg PO DAILY PRN 06/10/17 Calcium Acetate CAP* [Phoslo CAP*] 500 mg PO DAILY 08/30/17 Codeine TAB* [Codeine Tab*] 60 mg PO Q3H PRN 08/30/17 Sulfamethox/Trimethoprim SS* [Bactrim SS 400/80 TAB*] 1 tab PO .THREETIMESWEEKLY 08/30/17 lamoTRIgine TAB(*) [Lamictal TAB(*)] 125 mg PO BID 08/30/17 Dexamethasone TAB* [Decadron TAB*] 4 mg PO BID #14 tab 09/01/17 clonazePAM TAB(*) [KlonoPIN TAB(*)] 0.25 mg PO BEDTIME #14 tab MDD 0.25 fentaNYL PATCH 50 MCG/HR* [Duragesic PATCH 50 Mcg/Hr*] 50 mcg TRANSDERM Q72H hydrOXYzine HCL TAB* [Atarax TAB 50 MG *] 50 mg PO DAILY PRN 11/01/17 Allergies shellfish derived Allergy (Verified 11/15/17 23:16) Unknown Reaction Details Tetracyclines Allergy (Verified 11/15/17 23:16) Anaphylatic Shock PSurgHx Darryl-en-Y tonsillectomy knee surgery D&C SocHx: no tobacco, alcohol, or recreational drugs; ; disabled front end web designer; full code status FamHx: positive for multiple cancers ROS: as above, otherwise reviewed and all were negative vitals: Vital Signs Temp 36.6 C 11/15/17 23:12 Pulse 75 11/16/17 04:00 Resp 11 11/16/17 05:24 BP 133/93 11/16/17 05:24 Pulse Ox 97 11/16/17 04:00 Intake & Output 11/15/17 11/15/17 11/16/17 11:59 23:59 11:59 Weight 47.627 kg Constitutional: NAD, normally developed, cachectic white female HEENM: atraumatic; sclera/conjunctiva: anicteric/clear; hearing: mildly decreased; oropharynx: clear, tacky Neck: soft tissue: non-tender; thyroid: normal Pulmonary: diminished bilaterally, fair to good aeration, no accessory muscle use CV: RR/RR, normal S1S2, no carotid bruit, no jugular venous distention, 2+ B DP/ PT, no edema Abdominal: soft, non-distended, non-tender, no rebound/guarding/rigidity, normoactive bowel sounds, no hepatosplenomegaly or masses, no costovertebral angle tenderness Musculoskeletal: general: grossly intact, non-tender Integumental: pale, otherwise normal appearance and texture of exposed skin Psychiatric orientation: AA&O to PPS affect: calm mood: cooperative eye contact: fair content: reliable responses: mildly slowed insight: fair to good Testing: Lab Results 11/16/17 11/16/17 11/16/17 Range/Units 00:02 00:25 00:25 WBC 9.4 (3.5-10.8) 10^3/ul RBC 2.36 L (4.0-5.4) 10^6/ul Hgb 7.0 L (12.0-16.0) g/dl Hct 21 L (35-47) % MCV 89 (80-97) fL MCH 30 (27-31) pg MCHC 34 (31-36) g/dl RDW 15 (10.5-15) % Plt Count 218 (150-450) 10^3/ul MPV 7.0 L (7.4-10.4) um3 Neut % (Auto) 77.1 (38-83) % Lymph % (Auto) 14.1 L (25-47) % [place] % (Auto) 7.8 H (0-7) % Eos % (Auto) 0.3 (0-6) % Baso % (Auto) 0.7 (0-2) % Absolute Neuts (auto) 7.2 (1.5-7.7) 10^3/ul Absolute Lymphs (auto) 1.3 (1.0-4.8) 10^3/ul Absolute Monos (auto) 0.7 (0-0.8) 10^3/ul Absolute Eos (auto) 0 (0-0.6) 10^3/ul Absolute Basos (auto) 0.1 (0-0.2) 10^3/ul Absolute Nucleated RBC 0 10^3/ul Nucleated RBC % 0.1 Sodium 141 (139-145) mmol/L Potassium 3.6 (3.5-5.0) mmol/L Chloride 110 (101-111) mmol/L Carbon Dioxide 27 (22-32) mmol/L Anion Gap 4 (2-11) mmol/L BUN 20 (6-24) mg/dL Creatinine 0.72 (0.51-0.95) mg/dL Est GFR ( Amer) 104.9 (>60) Est GFR (Non-Af Amer) 81.6 (>60) BUN/Creatinine Ratio 27.8 H (8-20) Glucose 99 (70-100) mg/dL Calcium 7.6 L (8.6-10.3) mg/dL Total Bilirubin 0.20 (0.2-1.0) mg/dL AST 16 (13-39) U/L ALT 21 (7-52) U/L Alkaline Phosphatase 80 (34-104) U/L Total Protein 4.7 L (6.4-8.9) g/dL Albumin 2.6 L (3.2-5.2) g/dL Globulin 2.1 (2-4) g/dL Albumin/Globulin Ratio 1.2 (1-3) Blood Type AB Positive Antibody Screen Negative Crossmatch See Detail ECG, personally reviewed: NSR rate 73, no ischemia CXR, personally reviewed: no acute process Impression: 62F on therapy for an astrocytoma presents with symptomatic anemia of uncertain etiology DIAGNOSIS & PLAN Primary symptomatic anemia of uncertain etiology : check stool occult blood : transfuse 1 unit pRBCs : trend H&H : supplemental oxygen : supportive care Secondary astrocytoma : management per oncology COPD : review meds once reconciled GERD : omeprazole anxiety/depression : review meds once reconciled Admission Rational: inpatient for evaluation of acute anemia not expected to be adequately completed w/i 48h to allow for discharge DVTp: SCDs, no anticoagulation in setting of acute anemia Code Status: full HCP: Loren stephens
[2017-11-16] MEDS: fentaNYL PATCH 50 MCG/HR TRANSDERM SCH (06:32)
[2017-11-16] MEDS: Omeprazole CAP* 20 MG PO SCH (06:43)
[2017-11-16] MEDS: Codeine TAB* 30 MG PO PRN ×3 (06:44→19:45)
[2017-11-16] MEDS: NS 0.9% 1000 ML* 1,000 ML IV SCH ×2 (06:45→20:32)
[2017-11-16 07:23] LABS: Hematocrit 23 % (35-47); Hemoglobin 7.7 g/dl (12.0-16.0)
[2017-11-16] MEDS: fentaNYL Patch Check Q Shift 1 NOTE SCH ×2 (07:25→18:58)
--- NOTE | 2017-11-16 07:53 | RAD ---
HISTORY: Cough COMPARISONS: August 30, 2017 VIEWS: 3: Frontal and lateral views of the chest. FINDINGS: CARDIOMEDIASTINAL SILHOUETTE: The cardiomediastinal silhouette is normal. MAKENNA: The makenna are normal. PLEURA: The costophrenic angles are sharp. No pleural abnormalities are noted. LUNG PARENCHYMA: The lungs are clear. ABDOMEN: The upper abdomen is clear. There is no subphrenic gas. BONES AND SOFT TISSUES: No bone or soft tissue abnormalities are noted. OTHER: None. IMPRESSION: NO ACTIVE CARDIOPULMONARY DISEASE.
--- NOTE | 2017-11-16 08:32 | PN ---
Progress Note - Progress Note Date of Service: 11/16/17 SOAP: Subjective: c/o significant deterioration of PS since receiving Avastin on 11/07. c/o bilateral "severe leg swelling" (note--points to her legs and tells me how swollen they are but there is NO edema on exam--states "how can you not see that ?"). last BM 1 1/2 dys ago, not particularly dark. diffuse body aches (not new ). reports that she is 104 lbs (124 on exam) and loosing weight. denies SOB. Objective: Vital Signs Temp Pulse Resp BP Pulse Ox 98.3 F 94 18 116/69 98 11/16/17 06:26 11/16/17 06:26 11/16/17 06:44 11/16/17 06:26 11/16/17 06:26 chronically ill appearing female cushinoid face no thrush op moist CTA bl s1 s2 nl soft nt +bs NO LE EDEMA globally weak but 4/5 A+O x 3 multiple bruises from falls Laboratory Results - last 24 hr 11/16/17 11/16/17 11/16/17 00:02 00:25 00:25 WBC 9.4 RBC 2.36 L Hgb 7.0 L Hct 21 L MCV 89 MCH 30 MCHC 34 RDW 15 Plt Count 218 MPV 7.0 L Neut % (Auto) 77.1 Lymph % (Auto) 14.1 L [place] % (Auto) 7.8 H Eos % (Auto) 0.3 Baso % (Auto) 0.7 Absolute Neuts (auto) 7.2 Absolute Lymphs (auto) 1.3 Absolute Monos (auto) 0.7 Absolute Eos (auto) 0 Absolute Basos (auto) 0.1 Absolute Nucleated RBC 0 Nucleated RBC % 0.1 Sodium 141 Potassium 3.6 Chloride 110 Carbon Dioxide 27 Anion Gap 4 BUN 20 Creatinine 0.72 Est GFR ( Amer) 104.9 Est GFR (Non-Af Amer) 81.6 BUN/Creatinine Ratio 27.8 H Glucose 99 Calcium 7.6 L Total Bilirubin 0.20 AST 16 ALT 21 Alkaline Phosphatase 80 Total Protein 4.7 L Albumin 2.6 L Globulin 2.1 Albumin/Globulin Ratio 1.2 Blood Type AB Positive Antibody Screen Negative Crossmatch See Detail Laboratory Tests 11/16/17 06:59 Hgb 7.7 L Hct 23 L Acetaminophen (Tylenol Tab*) 650 mg PO Q6H PRN PRN Reason: FEVER/PAIN Albuterol (Ventolin 2.5 Mg/3 Ml Neb.Manuela*) 2.5 mg INH Q2H PRN PRN Reason: SOB/WHEEZING Clonazepam (Klonopin Tab(*)) 0.25 mg PO BEDTIME [facility] Codeine Sulfate (Codeine Tab*) 60 mg PO Q3H PRN PRN Reason: PAIN Last Admin: 11/16/17 06:44 Dose: 60 mg Dexamethasone (Decadron Tab*) 4 mg PO BID [facility] Docusate Sodium (Colace Cap*) 200 mg PO BID [facility] Fentanyl (Duragesic Patch 50 Mcg/Hr*) 50 mcg TRANSDERM Q72H [facility] Last Admin: 11/16/17 06:32 Dose: 50 mcg Sodium Chloride (Ns 0.9% 1000 Ml*) 1,000 mls @ 100 mls/hr IV PER RATE [facility] Last Admin: 11/16/17 06:45 Dose: 100 mls/hr Lamotrigine (Lamictal Tab(*)) 100 mg PO BID [facility] Lamotrigine (Lamictal Tab(*)) 25 mg PO BID [facility] Melatonin (Melatonin (Nf)) 3 mg PO BEDTIME PRN; Protocol PRN Reason: Sleep Omeprazole (Prilosec Cap*) 20 mg PO DAILY@0600 [facility] Last Admin: 11/16/17 06:43 Dose: 20 mg Ondansetron HCl (Zofran Odt Tab*) 4 mg PO Q6H PRN PRN Reason: n/v Pharmacy Profile Note (Fentanyl Patch Check Q Shift) 1 note N/A 0700,1900 [facility] Last Admin: 11/16/17 07:25 Dose: 1 note Assessment: 62 yo F w astrocytoma sp multiple lines of therapy with outside providers, most recently transferred care to Dr. Medrano and initiated Avastin 9 days ago presenting with progressive weakness and symptomatic anemia. She has some clear cognitive impairment given her insistence that she has marked swelling and weight loss despite evidence to the contrary. This is likely organic and related to her brain tumor and prior RT. Given Avastin and long standing steroid use she is at risk of GI bleed causing anemia. Plan: -tranfuse 1 u PRBC -check iron studies -stool guaiac -GI consult if evidence of blood loss. Note upper endoscopy in May with dilitation of anastamoses (from gastric bypass) without source of bleed, but this was PRIOR to avastin -full coed, will need to readdress -no medical DVT prophylaxis given concern for GI bleed, will try SCDs but patient likely to refuse given diffuse body pains
[2017-11-16] MEDS ORDERED: lamoTRIgine TAB(*) 25 MG PO SCH (09:00)
[2017-11-16] MEDS: Dexamethasone TAB* 4 MG PO SCH ×2 (10:25→20:43)
[2017-11-16] MEDS: Docusate CAP* 100 MG PO SCH ×2 (10:25→20:45)
[2017-11-16] MEDS: lamoTRIgine TAB(*) 100 MG PO SCH ×2 (10:25→20:43)
[2017-11-16] MEDS: lamoTRIgine TAB(*) 25 MG PO SCH ×2 (10:25→20:43)
[2017-11-16 18:01] LABS: Hematocrit 27 % (35-47); Hemoglobin 8.9 g/dl (12.0-16.0)
[2017-11-16] MEDS: clonazePAM TAB(*) 0.5 MG PO SCH (20:44)
[2017-11-17] MEDS: Codeine TAB* 30 MG PO PRN ×5 (02:34→23:42)
[2017-11-17] MEDS: Omeprazole CAP* 20 MG PO SCH (05:54)
[2017-11-17] MEDS: NS 0.9% 1000 ML* 1,000 ML IV SCH ×2 (06:45→17:17)
[2017-11-17] MEDS: fentaNYL Patch Check Q Shift 1 NOTE SCH ×2 (07:09→19:04)
[2017-11-17 07:45] LABS: EGFR Non-African American 124.2 (>60)
[2017-11-17] MEDS: lamoTRIgine TAB(*) 25 MG PO SCH ×2 (08:06→20:32)
[2017-11-17] MEDS: Dexamethasone TAB* 4 MG PO SCH ×2 (08:06→20:32)
[2017-11-17] MEDS: Docusate CAP* 100 MG PO SCH ×2 (08:06→20:31)
[2017-11-17] MEDS: lamoTRIgine TAB(*) 100 MG PO SCH ×2 (08:06→20:33)
[2017-11-17] MEDS: Acetaminophen TAB* 325 MG PO PRN (08:06)
[2017-11-17 08:21] LABS: Hematocrit 24 % (35-47); Mean Corpuscular HGB Conc 33 g/dl (31-36); Mean Corpuscular Hemoglobin 30 pg (27-31); Mean Corpuscular Volume 91 fL (80-97); Mean Platelet Volume 7.3 um3 (7.4-10.4); Platelet Count 214 10^3/ul (150-450); Red Blood Count 2.69 10^6/ul (4.0-5.4); Red Cell Distribution Width 15 % (10.5-15); White Blood Count 8.8 10^3/ul (3.5-10.8)
[2017-11-17 08:48] LABS: ABS Basophils 0 10^3/ul (0-0.2); ABS Eosinophils 0 10^3/ul (0-0.6); ABS Lymphocytes 1.1 10^3/ul (1.0-4.8); ABS Monocytes 0.5 10^3/ul (0-0.8); ABS Neutrophils 7.2 10^3/ul (1.5-7.7)
[2017-11-17 08:51] LABS: Monocytes % 5 % (0-7)
[2017-11-17] MEDS: Ondansetron ODT TAB* 4 MG PO PRN (13:54)
--- NOTE | 2017-11-17 19:37 | PN ---
Subjective Date of Service: 11/17/17 Interval History: c/o occasional vaginal bleeding, denies chest pain or shortness of breath, denies abd pain n/v/d, denies black or tarry stools. continue to report bilat leg swelling but there is no edema noted. Family History: Unchanged from Admission Social History: Unchanged from Admission Past Medical History: Unchanged from Admission Objective Active Medications: Acetaminophen (Tylenol Tab*) 650 mg PO Q6H PRN PRN Reason: FEVER/PAIN Last Admin: 11/17/17 08:06 Dose: 650 mg Albuterol (Ventolin 2.5 Mg/3 Ml Neb.Manuela*) 2.5 mg INH Q2H PRN PRN Reason: SOB/WHEEZING Clonazepam (Klonopin Tab(*)) 0.25 mg PO BEDTIME [facility] Last Admin: 11/16/17 20:44 Dose: 0.25 mg Codeine Sulfate (Codeine Tab*) 60 mg PO Q3H PRN PRN Reason: PAIN Last Admin: 11/17/17 19:03 Dose: 60 mg Dexamethasone (Decadron Tab*) 4 mg PO BID [facility] Last Admin: 11/17/17 08:06 Dose: 4 mg Docusate Sodium (Colace Cap*) 200 mg PO BID [facility] Last Admin: 11/17/17 08:06 Dose: 200 mg Fentanyl (Duragesic Patch 50 Mcg/Hr*) 50 mcg TRANSDERM Q72H [facility] Last Admin: 11/16/17 06:32 Dose: 50 mcg Sodium Chloride (Ns 0.9% 1000 Ml*) 1,000 mls @ 100 mls/hr IV PER RATE [facility] Last Admin: 11/17/17 17:17 Dose: 100 mls/hr Lamotrigine (Lamictal Tab(*)) 100 mg PO BID [facility] Last Admin: 11/17/17 08:06 Dose: 100 mg Lamotrigine (Lamictal Tab(*)) 25 mg PO BID [facility] Last Admin: 11/17/17 08:06 Dose: 25 mg Melatonin (Melatonin (Nf)) 3 mg PO BEDTIME PRN; Protocol PRN Reason: Sleep Omeprazole (Prilosec Cap*) 20 mg PO DAILY@0600 [facility] Last Admin: 11/17/17 05:54 Dose: 20 mg Ondansetron HCl (Zofran Odt Tab*) 4 mg PO Q6H PRN PRN Reason: n/v Last Admin: 11/17/17 13:54 Dose: 4 mg Pharmacy Profile Note (Fentanyl Patch Check Q Shift) 1 note N/A 0700,1900 [facility] Last Admin: 11/17/17 19:04 Dose: 1 note Vital Signs - 8 hr 11/17/17 11/17/17 11/17/17 13:13 15:32 17:19 Temperature 98.1 F Pulse Rate 92 Respiratory 16 20 18 Rate Blood Pressure 115/65 (mmHg) O2 Sat by Pulse 100 Oximetry 11/17/17 19:03 Temperature Pulse Rate Respiratory 17 Rate Blood Pressure (mmHg) O2 Sat by Pulse Oximetry Oxygen Devices in Use Now: None Appearance: chronic ill appearing Eyes: No Scleral Icterus Ears/Nose/Mouth/Throat: Clear Oropharnyx, Mucous Membranes Moist Neck: NL Appearance and Movements; NL JVP, Trachea Midline Respiratory: Symmetrical Chest Expansion and Respiratory Effort, Clear to Auscultation Cardiovascular: NL Sounds; No Murmurs; No JVD, No Edema Abdominal: NL Sounds; No Tenderness; No Distention Neurological: - - confused, noted to have some cognitive impairment Nutrition: Taking PO's Result Diagrams: 11/18/17 05:25 11/17/17 06:27 Additional Lab and Data: Lab Results 11/16/17 11/16/17 11/16/17 Range/Units 00:02 00:25 00:25 WBC 9.4 (3.5-10.8) 10^3/ul RBC 2.36 L (4.0-5.4) 10^6/ul Hgb 7.0 L (12.0-16.0) g/dl Hct 21 L (35-47) % MCV 89 (80-97) fL MCH 30 (27-31) pg MCHC 34 (31-36) g/dl RDW 15 (10.5-15) % Plt Count 218 (150-450) 10^3/ul MPV 7.0 L (7.4-10.4) um3 Neut % (Auto) 77.1 (38-83) % Lymph % (Auto) 14.1 L (25-47) % [place] % (Auto) 7.8 H (0-7) % Eos % (Auto) 0.3 (0-6) % Baso % (Auto) 0.7 (0-2) % Absolute Neuts (auto) 7.2 (1.5-7.7) 10^3/ul Absolute Lymphs (auto) 1.3 (1.0-4.8) 10^3/ul Absolute Monos (auto) 0.7 (0-0.8) 10^3/ul Absolute Eos (auto) 0 (0-0.6) 10^3/ul Absolute Basos (auto) 0.1 (0-0.2) 10^3/ul Absolute Nucleated RBC 0 10^3/ul Nucleated RBC % 0.1 Sodium 141 (139-145) mmol/L Potassium 3.6 (3.5-5.0) mmol/L Chloride 110 (101-111) mmol/L Carbon Dioxide 27 (22-32) mmol/L Anion Gap 4 (2-11) mmol/L BUN 20 (6-24) mg/dL Creatinine 0.72 (0.51-0.95) mg/dL Est GFR ( Amer) 104.9 (>60) Est GFR (Non-Af Amer) 81.6 (>60) BUN/Creatinine Ratio 27.8 H (8-20) Glucose 99 (70-100) mg/dL Calcium 7.6 L (8.6-10.3) mg/dL Total Bilirubin 0.20 (0.2-1.0) mg/dL AST 16 (13-39) U/L ALT 21 (7-52) U/L Alkaline Phosphatase 80 (34-104) U/L Total Protein 4.7 L (6.4-8.9) g/dL Albumin 2.6 L (3.2-5.2) g/dL Globulin 2.1 (2-4) g/dL Albumin/Globulin Ratio 1.2 (1-3) Blood Type AB Positive Antibody Screen Negative Crossmatch See Detail Microbiology and Other Data: Microbiology 11/17/17 12:46 Stool Occult Blood (JANICE) - Final Stool 11/16/17 13:31 Stool Occult Blood (JANICE) - Final Stool Assess/Plan/Problems-Billing Assessment: Ms. Erik Echeverria is a 62 y.o is - Patient Problems (1) Anemia Current Visit: No Status: Chronic Code(s): D64.9 - ANEMIA, UNSPECIFIED SNOMED Code(s): 341726322 Comment: - stool heme - negative - recieved 1 unit PRBC's h/h today improved slightly today to 8/24 c/o occasional vaginal bleeding x 3 years spotting small amount on tissue with wiping (2) Anxiety and depression Current Visit: No Status: Chronic Code(s): F41.8 - OTHER SPECIFIED ANXIETY DISORDERS SNOMED Code(s): 16899303 Comment: stable - continue Klonopin (3) Brain cancer Current Visit: No Status: Chronic Code(s): C71.9 - MALIGNANT NEOPLASM OF BRAIN, UNSPECIFIED SNOMED Code(s): 720551971 Comment: management per oncology (4) Chronic pain Current Visit: No Status: Chronic Code(s): G89.29 - OTHER CHRONIC PAIN SNOMED Code(s): 26666168 Comment: - Continue Fentanyl patch and codeine (5) GERD (gastroesophageal reflux disease) Current Visit: No Status: Chronic Code(s): K21.9 - GASTRO-ESOPHAGEAL REFLUX DISEASE WITHOUT ESOPHAGITIS SNOMED Code(s): 528671593 Comment: Omeprazole (6) DVT prophylaxis Current Visit: No Status: Acute Code(s): HNG3367 - SNOMED Code(s): 559274822 Comment: - given her anemia of unknown cause will hold on anticogaulation (7) Full code status Current Visit: No Status: Acute Code(s): Z78.9 - OTHER SPECIFIED HEALTH STATUS SNOMED Code(s): 314297746 Status and Disposition: inpatient - heme/ onc service
[2017-11-17] MEDS: clonazePAM TAB(*) 0.5 MG PO SCH (20:32)
[2017-11-18] MEDS: Codeine TAB* 30 MG PO PRN ×4 (02:21→20:26)
[2017-11-18] MEDS: NS 0.9% 1000 ML* 1,000 ML IV SCH ×2 (03:15→14:57)
[2017-11-18] MEDS: Acetaminophen TAB* 325 MG PO PRN ×3 (03:50→20:27)
[2017-11-18] MEDS: Omeprazole CAP* 20 MG PO SCH (05:26)
[2017-11-18] MEDS: Ondansetron ODT TAB* 4 MG PO PRN (05:34)
[2017-11-18 05:49] LABS: Hematocrit 24 % (35-47)
[2017-11-18] MEDS: fentaNYL Patch Check Q Shift 1 NOTE SCH ×2 (06:49→18:31)
[2017-11-18] MEDS: lamoTRIgine TAB(*) 100 MG PO SCH ×2 (08:15→20:28)
[2017-11-18] MEDS: lamoTRIgine TAB(*) 25 MG PO SCH ×2 (08:15→20:27)
[2017-11-18] MEDS: Docusate CAP* 100 MG PO SCH ×2 (08:15→20:27)
[2017-11-18] MEDS: Dexamethasone TAB* 4 MG PO SCH ×2 (08:15→20:27)
--- NOTE | 2017-11-18 09:54 | PN ---
Progress Note - Progress Note Date of Service: 11/18/17 SOAP: Subjective: []Overall feeling a little better today. Reports able to walk with cane. She has had reports of edema in leg but no edema in ER or during admission. Discussed edema with Pina, he primary support, and she is going to e-mail pictures of swelling. She is eating well. Has has frequent falls at home that have been increasing over past month, she feels falling more over past 2 weeks. Also, complaint of anxiety, insomnia because she is afraid to all asleep. She has increased hip pain on left side, makes walking more difficult. On admission marked decrease in Hgb, low iron but stool - x 2. Acetaminophen (Tylenol Tab*) 650 mg PO Q6H PRN PRN Reason: FEVER/PAIN Last Admin: 11/18/17 03:50 Dose: 650 mg Albuterol (Ventolin 2.5 Mg/3 Ml Neb.Manuela*) 2.5 mg INH Q2H PRN PRN Reason: SOB/WHEEZING Clonazepam (Klonopin Tab(*)) 0.25 mg PO BEDTIME [facility] Last Admin: 11/17/17 20:32 Dose: 0.25 mg Codeine Sulfate (Codeine Tab*) 60 mg PO Q3H PRN PRN Reason: PAIN Last Admin: 11/18/17 08:15 Dose: 60 mg Dexamethasone (Decadron Tab*) 4 mg PO BID [facility] Last Admin: 11/18/17 08:15 Dose: 4 mg Docusate Sodium (Colace Cap*) 200 mg PO BID [facility] Last Admin: 11/18/17 08:15 Dose: Not Given Fentanyl (Duragesic Patch 50 Mcg/Hr*) 50 mcg TRANSDERM Q72H [facility] Last Admin: 11/16/17 06:32 Dose: 50 mcg Sodium Chloride (Ns 0.9% 1000 Ml*) 1,000 mls @ 100 mls/hr IV PER RATE [facility] Last Admin: 11/18/17 03:15 Dose: 100 mls/hr Lamotrigine (Lamictal Tab(*)) 100 mg PO BID [facility] Last Admin: 11/18/17 08:15 Dose: 100 mg Lamotrigine (Lamictal Tab(*)) 25 mg PO BID [facility] Last Admin: 11/18/17 08:15 Dose: 25 mg Melatonin (Melatonin (Nf)) 3 mg PO BEDTIME PRN; Protocol PRN Reason: Sleep Last Admin: 11/18/17 03:50 Dose: 3 mg Omeprazole (Prilosec Cap*) 20 mg PO DAILY@0600 [facility] Last Admin: 11/18/17 05:26 Dose: 20 mg Ondansetron HCl (Zofran Odt Tab*) 4 mg PO Q6H PRN PRN Reason: n/v Last Admin: 11/18/17 05:34 Dose: 4 mg Pharmacy Profile Note (Fentanyl Patch Check Q Shift) 1 note N/A 0700,1900 [facility] Last Admin: 11/18/17 06:49 Dose: 1 note Objective: [] Vital Signs Temp Pulse Resp BP Pulse Ox 98.3 F 66 17 138/79 100 11/18/17 07:44 11/18/17 07:44 11/18/17 08:15 11/18/17 07:44 11/18/17 07:44 HEENT - no oral lesions. CTA RRR S1S2 +BS NT ND Ext no edema, good pulses Neuro- oriented to hospital, months but not day. Concessive, did not claim ANA today. skin -did not examine back side Assessment: []62 year old with grade III astrocytoma and chronic PROGRAM MANAGEMENT ANALYST edema. Responding to [facility] and started on Avastin for edema and need for chronic steroids. Plan: []1. Astrocytoma. Currently on Avastin, therapy on hold during admission. Possible increase in memory loss over recent weeks. 2. AAN. Resolved at this time. Instructed that she can call office for recurrent edema but does not need to ER unless instructed by office. 3. Falls. Walking with cane in hospital, chronic issue and will have social work consult today to evauate opportunities for increased home support. 4. Anxiety. Has been on Lexapro and Lamicta at home, will continue Lexapro 10 mg daily in hospital. Ativan is contraindicated. 5. Anemia. No active bleeding, low iron. Ddx: occult acute bleeding, chronic loss and low production from ISHA or marrow suppression after chemotherapy. Will give IV iron starting now and as out patient. 6. Hip pain. Could have AVN from steroids, supportive care, can consider MRI if hip in future. No intervention will be indicated. 7. Disp. Home after social work evaluation.
[2017-11-18 10:53] LABS: Corrected Retic Count 2.1 % (0.5-1.5); Hematocrit for Retic CNT 28 % (35-47); Immature Retic Fraction 0.68
[2017-11-18] MEDS ORDERED: Ferric Gluconate IV* 125 MG in NS 0.9% 100 ML* 100 ML IVPB ONE (11:00)
[2017-11-18] MEDS: Citalopram TAB* 20 MG PO SCH (11:42)
[2017-11-18] MEDS: clonazePAM TAB(*) 0.5 MG PO SCH (20:27)
[2017-11-19] MEDS: NS 0.9% 1000 ML* 1,000 ML IV SCH (01:34)
[2017-11-19] MEDS: Codeine TAB* 30 MG PO PRN ×3 (01:56→12:13)
[2017-11-19] MEDS: Acetaminophen TAB* 325 MG PO PRN ×2 (01:56→08:15)
[2017-11-19] MEDS: fentaNYL PATCH 50 MCG/HR TRANSDERM SCH (03:51)
[2017-11-19 05:43] LABS: Hematocrit 25 % (35-47); Hemoglobin 8.5 g/dl (12.0-16.0); Mean Corpuscular HGB Conc 34 g/dl (31-36); Mean Corpuscular Hemoglobin 30 pg (27-31); Mean Corpuscular Volume 89 fL (80-97); Mean Platelet Volume 7.1 um3 (7.4-10.4); Platelet Count 290 10^3/ul (150-450); Red Blood Count 2.84 10^6/ul (4.0-5.4); Red Cell Distribution Width 15 % (10.5-15); White Blood Count 8.4 10^3/ul (3.5-10.8)
[2017-11-19 05:59] LABS: EGFR Non-African American 133.4 (>60)
[2017-11-19 06:18] LABS: ABS Basophils 0 10^3/ul (0-0.2); ABS Eosinophils 0 10^3/ul (0-0.6); ABS Monocytes 0.4 10^3/ul (0-0.8); ABS Nucleated RBC 0 10^3/ul; Eosinophil % 0.1 % (0-6); Lymphocyte % 11.3 % (25-47); Nucleated Red Blood Cells % 0.1
[2017-11-19] MEDS: Omeprazole CAP* 20 MG PO SCH (07:08)
[2017-11-19] MEDS: fentaNYL Patch Check Q Shift 1 NOTE SCH (07:08)
[2017-11-19] MEDS: Docusate CAP* 100 MG PO SCH (08:10)
[2017-11-19] MEDS: Citalopram TAB* 20 MG PO SCH (08:11)
[2017-11-19] MEDS: lamoTRIgine TAB(*) 25 MG PO SCH (08:11)
[2017-11-19] MEDS: Dexamethasone TAB* 4 MG PO SCH (08:11)
[2017-11-19] MEDS: lamoTRIgine TAB(*) 100 MG PO SCH (08:11)
[2017-11-19 08:24] VITALS: BP 144/84
--- NOTE | 2017-11-19 11:25 | RAD ---
Indication: Left hip pain. Comparison is made with previous exam dated August 22, 2017. 2 views of left hip and an AP view of the pelvis is reviewed. There is slight cortical incongruity in the neck of the left femur. I cannot totally exclude an impacted fracture and CT or MRI of the left hip is suggested for further evaluation. IMPRESSION: Slight incongruity of the left femoral neck for which is impacted fracture cannot BE excluded. CT or MR of the left hip is suggested for further evaluation.
--- NOTE | 2017-11-19 13:18 | RAD ---
Indication: Evaluate for left hip fracture, left hip pain. CT of the pelvis was obtained in the axial plane. Sagittal and coronal reconstructed images were obtained. The pelvic ring is intact. Sacroiliac joints are unremarkable. There is slight cortical irregularity at the left femoral head neck junction which may have been present on prior CT dated May 01, 2017. Diffuse osteopenia is noted. Degenerative changes of the pelvis is noted. There is diffuse subcutaneous edema in the soft tissues in the lateral hip. The left gluteal muscles may be larger on the left than on the right. Correlation for other causes of left lower extremity edema should BE considered as well. IMPRESSION: No definite fracture of the pelvis or hip is noted. Diffuse subcutaneous edema noted in the left lower extremity. Evaluate for causes of left lower extremity edema.
[2017-11-19] MEDS: Ondansetron ODT TAB* 4 MG PO PRN (13:29)
--- NOTE | 2017-11-20 10:23 | DS ---
CC: Dr. Sifuentes * DISCHARGE SUMMARY: DATE OF ADMISSION: 11/16/17 DATE OF DISCHARGE: 11/19/17 PRIMARY CARE PROVIDER: Dr. Sifuentes. PRIMARY ONCOLOGIST AND ATTENDING PHYSICIAN: Dr. Rao Medrano.* (DICTATED BY JULIA TRUONG) DISCHARGING PROVIDER: JULIA Truong PRIMARY DISCHARGE DIAGNOSES: 1. Acute on chronic anemia without evidence of blood loss with iron deficiency , status post transfusion of 1 unit of packed red blood cells and IV iron infusion. 2. Transient lower extremity edema, now resolved. 3. Gait instability. 4. Hip pain without evidence of fracture, likely due to contusion from a recent fall. SECONDARY DISCHARGE DIAGNOSES: Astrocytoma, currently on Avastin, with some short- term memory loss. DISCHARGE MEDICATIONS: 1. PhosLo 500 mg p.o. daily. 2. Clonazepam 0.25 mg p.o. at bedtime. 3. Codeine 50 mg p.o. q.3 hours as needed for pain. 4. Dexamethasone 4 mg p.o. twice daily. 5. Nexium 40 mg p.o. daily. 6. Duragesic patch 50 mcg transdermally changed every 3 days. 7. Ferrous sulfate 325 mg p.o. daily. 8. Hydroxyzine 50 mg p.o. daily. 9. Lamictal 125 mg p.o. twice daily. 10. Multivitamin 1 tablet p.o. daily. 11. Zofran 4 mg sublingual q.6 hours as needed for nausea and vomiting. 12. Bactrim 1 tablet p.o. 3 times weekly. Medication changes: Start iron supplementation. HOSPITAL IMAGIN. Chest x-ray, 11/16/17, shows no acute process. 2. X-ray of the hip and pelvis shows slight incongruity of the left femoral neck, which an impacted fracture cannot be excluded. Recommend CT or MRI. 3. CT of the pelvis demonstrates no fracture. Diffuse subcutaneous edema noted in the left lower extremity at the level of the lateral hip. HOSPITAL COURSE: This is a 62-year-old female with astrocytoma, treated by Dr. Medrano with Avastin, who presented to the emergency department with concern for lower extremity edema. At the time of evaluation, edema had resolved, but the patient was noted to be anemic with a hemoglobin of 7.0, 5 days prior to that she had been 8.3, and 4 days prior to that had been 10.8. The patient was subsequently admitted with concern for acute blood loss anemia. Guaiac testing was completed on 2 separate stool samples, both of which were negative. The patient was transfused 1 unit of packed red blood cells with appropriate response and hemoglobin remained stable throughout her hospitalization. The patient's iron was low with a normal to low ferritin. TSH is mildly elevated at 6.3. LDH is essentially normal with reticulocyte count of 2.1. The patient received IV infusion of iron. The patient did experience multiple falls at home and seems to have some declining short-term memory loss. She was complaining of left hip pain, which was imaged and showed no evidence of fracture. She was complaining of transient lower extremity edema. She did have picture evidence of edema that had occurred at home, but it was not present during her hospitalization. The etiology of this is not clear. She seemed to have some element of with complaints of pain with even light touch over the majority of her body. Lyme serology was added at the time of discharge due to her complaints of migrating arthralgias and effusions, but empiric treatment was not initiated, as suspicion is low but this test is pending at the time of discharge. DISPOSITION AND FOLLOWUP PLAN: The patient is being discharged to home. She has treatment scheduled for later this week, which she is instructed to complete. She will follow up with Dr. Medrano next week. CBC will be repeated on at the time of treatment and next week at the time of evaluation with Dr. Medrano. She will require close monitoring of her CBC. If hemoglobin drops again, can repeat stool guaiac testing. The patient may require additional IV iron infusions as well. JULIA TRUONG [id number]/[facility] #: [id number] LOPEZ
== END 2017-11-19 14:05 | disposition home or self-care (01) | DRG 663 ==
LOC: ED 23:09 → MED 11-16 03:29 → OBSVTOIN 11-18 14:41
PROVIDERS: ADMIT Hospitalist; ATTEND Internal Medicine Hematology & Oncology
PROC: 30233N1 Transfusion of Nonautologous Red Blood Cells into Peripheral Vein, Percutaneous Approach (ICD-10-PCS; principal; 2017-11-16)
DX: D50.8 Other iron deficiency anemias (principal); C71.9 Malignant neoplasm of brain, unspecified; R26.89 Other abnormalities of gait and mobility; M25.552 Pain in left hip; R60.0 Localized edema; J44.9 Chronic obstructive pulmonary disease, unspecified; M48.00 Spinal stenosis, site unspecified; K21.9 Gastro-esophageal reflux disease without esophagitis; K22.2 Esophageal obstruction; F41.8 Other specified anxiety disorders; Z79.891 Long term (current) use of opiate analgesic; Z79.899 Other long term (current) drug therapy; Z88.8 Allergy status to other drugs, medicaments and biological substances; Z91.013 Allergy to seafood; Z98.84 Bariatric surgery status
CPT/HCPCS: 36415; 71046; 72192; 80048; 80053; 82270; 82272; 82607; 82728; 83010; 83540; 83550; 83615; 84443; 85014; 85018; 85025; 85045; 86618; 86850; 86900; 86901; 86922; 93005; 99233; 99239; 99284; A9270-GY; G0378; J2916; J8540; P9040

== ENCOUNTER 2018-06-10 21:32 | Inpatient (IN) | payer BC ==
[2018-06-10] MEDS ORDERED: NS 0.9% 1000 ML* 1,000 ML IV ONE (22:29)
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
[2018-06-10 22:54] LABS: Hematocrit 29 % (35-47); Hemoglobin 9.4 g/dl (12.0-16.0); Mean Corpuscular HGB Conc 33 g/dl (31-36); Mean Corpuscular Hemoglobin 32 pg (27-31); Mean Corpuscular Volume 96 fL (80-97); Red Blood Count 2.98 10^6/ul (4.00-5.40); Red Cell Distribution Width 17 % (10.5-15); White Blood Count 4.8 10^3/ul (3.5-10.8)
[2018-06-10 23:01] LABS: Activated Partial Thrombo Time 32.1 seconds (26.0-36.3); INR 1.04 (0.77-1.02)
[2018-06-10 23:08] LABS: Albumin 2.9 g/dL (3.2-5.2); Albumin/Globulin Ratio 1.3 (1-3); BUN/Creatinine Ratio 17.9 (8-20); C Reactive Protein 131.51 mg/L (<8.01); Calcium 8.2 mg/dL (8.6-10.3); EGFR Non-African American 74.1 (>60); Globulin 2.2 g/dL (2-4); Potassium 4.1 mmol/L (3.5-5.0); Total Protein 5.1 g/dL (6.4-8.9)
[2018-06-10] MEDS ORDERED: Iohexol 350* (CONTRAST) 500 ML MDV IV ONE (23:27)
[2018-06-10 23:43] LABS: Schistocytes 1+; Tear Drop Cells 1+
[2018-06-10 23:44] LABS: Platelet Morphology Large
[2018-06-11 00:15] LABS: ABS Basophils 0 10^3/ul (0-0.2); ABS Eosinophils 0 10^3/ul (0-0.6); ABS Lymphocytes 0.3 10^3/ul (1.0-4.8); ABS Monocytes 0.5 10^3/ul (0-0.8); ABS Nucleated RBC 0 10^3/ul; Eosinophil % 0.5 %; Lymphocyte % 5.3 %; Mean Platelet Volume 6.5 fL (7.4-10.4); Nucleated Red Blood Cells % 0.2; Platelet Count 58 10^3/ul (150-450)
[2018-06-11] MEDS ORDERED: Enoxaparin(*) 60 MG/0.6 ML SYR SUBCUT ONE (00:46)
[2018-06-11] MEDS ORDERED: Albuterol 2.5 MG/3 ML NEB.SOL* (0.083%) INH PRN (01:58)
[2018-06-11] MEDS ORDERED: NS 0.9% 1000 ML* 1,000 ML IV SCH (02:00)
--- NOTE | 2018-06-11 02:24 | ADMNOTE ---
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 hcp said she has increasing weakness and fell yesterday/ hit her back and has been staring in the air for one day hx. intiial head ct showed no acute intracranial pathology but + vasogenic edema throughout right frontal and parietal lobes. ct of t/l spine did not demonstrate acute fx but showed patchy infil from posterior aspects of rul and rll on thoracic ct. chest x ray showed wedge shape density ---> ct of chest showed b/l pulmonary emboli besides patchy infil pt has no wbc but crp is >1230 has been on bactrim daily prior to admission her speech is very slurry but able to swallow meds with apple sauce and able to tolerate a sip of water too phx astrocytoma last chemo was 05/24/2018---> chemo was on hold due to the need of oral surgery for denture copd gerd esophageal stricture anxiety/depression hx of seizure pshx he-en-y tonsilectomy hx of knee surgery hx of d/c social hx prior cig smoker no etoh pt comes from home has a hcp kai [facility] Review of Systems - Measurements Intake and Output: Intake and Output Last 24 Hours 06/08/18 06/09/18 06/10/18 06/11/18 06:59 06:59 06:59 06:59 Intake Total 1000 Balance 1000 Weight 131 lb Intake: IV Fluids 1000 pertinent as per hpi otherwise unable since pt is a poor historian with ms change Objective Active Medications: Albuterol (Ventolin 2.5 Mg/3 Ml Neb.Manuela*) 2.5 mg INH [id number] AWAKE PRN PRN Reason: sob/wheezing Citalopram Hydrobromide (Celexa Tab*) 20 mg PO DAILY [facility] Clonazepam (Klonopin Tab(*)) 0.5 mg PO BEDTIME [facility] Codeine Sulfate (Codeine Tab*) 60 mg PO Q3H PRN PRN Reason: PAIN Dexamethasone (Decadron Tab*) 4 mg PO BID [facility] Enoxaparin Sodium (Lovenox(*)) 60 mg SUBCUT Q12H [facility] Hydroxyzine HCl (Atarax Tab*) 50 mg PO DAILY PRN PRN Reason: ITCHING Sodium Chloride (Ns 0.9% 1000 Ml*) 1,000 mls @ 100 mls/hr IV PER RATE [facility] Lamotrigine (Lamictal Tab(*)) 25 mg PO BID [facility] Lamotrigine (Lamictal Tab(*)) 100 mg PO BID [facility] Lisinopril (Prinivil Tab*) 5 mg PO DAILY [facility] Melatonin (Melatonin) 9 mg PO BEDTIME [facility] Non-Formulary Medication (Sulfamethox/Trimethoprim Ss*) 1 tab PO SEE INSTRUCTIONS [facility] Nystatin (Nystatin Suspension*) 500,000 units PO QID [facility] Stop: 06/18/18 02:08 Omeprazole (Prilosec Cap*) 20 mg PO DAILY PRN; Protocol PRN Reason: NAUSEA Vital Signs - 8 hr 06/10/18 06/10/18 06/10/18 21:40 22:01 22:31 Temperature 99.3 F Pulse Rate 88 89 40 Respiratory 16 Rate Blood Pressure 151/97 137/95 137/100 (mmHg) O2 Sat by Pulse 98 98 79 Oximetry 06/10/18 06/10/18 06/10/18 22:34 23:06 23:08 Temperature Pulse Rate 89 87 86 Respiratory Rate Blood Pressure 143/94 132/88 (mmHg) O2 Sat by Pulse 98 92 94 Oximetry 06/10/18 06/11/18 06/11/18 23:54 00:00 00:01 Temperature Pulse Rate 88 82 81 Respiratory Rate Blood Pressure 153/94 151/94 (mmHg) O2 Sat by Pulse 86 98 98 Oximetry 06/11/18 06/11/18 00:28 00:31 Temperature Pulse Rate 80 82 Respiratory Rate Blood Pressure 148/83 (mmHg) O2 Sat by Pulse 99 100 Oximetry Oxygen Devices in Use Now: Nasal Cannula, Other Appearance: nad but very cachetic looking Eyes: No Scleral Icterus, PERRLA Ears/Nose/Mouth/Throat: - - poor dentation with oral thrush Neck: NL Appearance and Movements; NL JVP, Trachea Midline, No Thyroid Enlargement, Masses Respiratory: Symmetrical Chest Expansion and Respiratory Effort, Clear to Auscultation Cardiovascular: NL Sounds; No Murmurs; No JVD, RRR Abdominal: NL Sounds; No Tenderness; No Distention Extremities: - - no pedal edema able to raise le against gravity as well as ue b /l Skin: - - multiple different stages of scabs seen on exts b/l le > ue Neurological: Alert and Oriented x 3 - cranial n 2-12 grossly intact but very speech is very slurred motor ue and le 5/5 sensory ue 2/2 le 1/2 plantar reflex downwards Result Diagrams: 06/12/18 06:37 06/12/18 06:37 Assess/Plan/Problems-Billing Assessment: this is a 63 yr old wf with astrocytoma last chemo was 05/2018 was brought in to er due to worsening mental status for the past 20 days after chemo stopped. hcp says she has worsening ms and stares in the air intermittant today and has been much weaker since yesterday pt also fell and hit her back as per hcp intial head ct still + vasogenic edema on the r parital/frontal lobe spoke with vred when compared to old mri 03/2018 worsening edema as per vrad. pt was found to have wedge shape opacity on chest x ray ---> ct scan chest showed b/l pe besides patchy infil on the r posterior upper and lower lobe ---> wbc has been wnl. 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 status at home ---> lovenox 1 mg/kg q 12 for now (2) Astrocytoma brain tumor Current Visit: Yes Status: Acute Comment: off chemo since 05/24/2018 will sign out to primary onc in am pt would benefit for at least palliative consult eval (3) COPD (chronic obstructive pulmonary disease) Current Visit: Yes Status: Acute Code(s): J44.9 - CHRONIC OBSTRUCTIVE PULMONARY DISEASE, UNSPECIFIED SNOMED Code(s): 46167731 Comment: stable continue oxygen support (4) Hx of seizure disorder Current Visit: Yes Status: Acute Code(s): Z86.69 - PERSONAL HISTORY OF DIS OF THE NERVOUS SYS AND SENSE ORGANS SNOMED Code(s): 243240583 Comment: neuro ck q4 hr seizure precaution continue lamictal (5) Esophageal stricture Current Visit: No Status: Acute Code(s): K22.2 - ESOPHAGEAL OBSTRUCTION SNOMED Code(s): 53093113 Comment: hx of gerd continue ppi (6) Oral thrush Current Visit: Yes Status: Acute Code(s): B37.0 - CANDIDAL STOMATITIS SNOMED Code(s): 55845504 Comment: nystatin swish and swallow qid (7) Vasogenic brain edema Current Visit: Yes Status: Acute Code(s): G93.6 - CEREBRAL EDEMA SNOMED Code(s): 235688117 Comment: no sig change when ct head today compared to mri 03/2018 continue current dose of decadron mri of head as per suggestion from radiology (8) Slurred speech Current Visit: Yes Status: Acute Code(s): R47.81 - SLURRED SPEECH SNOMED Code(s): 487541233 Comment: able to tolerate meds with apple sauce pt has no wbc but ct chest showed patchy infil on the rul/rll will have full swallow eval in am (9) PNA (pneumonia) Current Visit: Yes Status: Acute Code(s): J18.9 - PNEUMONIA, UNSPECIFIED ORGANISM SNOMED Code(s): 264716992 Comment: etiology unclear prob aspiration no wbc no 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
[2018-06-11] MEDS: Codeine TAB* 30 MG PO PRN ×6 (05:15→21:21)
[2018-06-11] MEDS: Nystatin SUSPENSION* 100000 UNITS/ML 5 ML UDC PO SCH ×5 (05:15→20:05)
[2018-06-11 06:17] LABS: Urine Appearance Cloudy; Urine Bacteria Absent (Absent); Urine Bilirubin Negative (Negative); Urine Blood 1+ (Negative); Urine Color Yellow; Urine Glucose Negative (Negative); Urine Ketones Negative (Negative); Urine Nitrite Negative (Negative); Urine Protein Negative (Negative); Urine Red Blood Cell 3+(>10/hpf) (Absent); Urine Specific Gravity 1.035 (1.010-1.030); Urine Urobilinogen Negative (Negative); Urine White Blood Cell Absent (Absent)
[2018-06-11 06:39] LABS: ABS Basophils 0 10^3/ul (0-0.2); ABS Eosinophils 0 10^3/ul (0-0.6); ABS Lymphocytes 0.3 10^3/ul (1.0-4.8); ABS Monocytes 0.5 10^3/ul (0-0.8); ABS Neutrophils 3.7 10^3/ul (1.5-7.7); ABS Nucleated RBC 0 10^3/ul; Eosinophil % 0.5 %; Hematocrit 27 % (35-47); Hemoglobin 8.9 g/dl (12.0-16.0); Mean Corpuscular HGB Conc 33 g/dl (31-36); Mean Corpuscular Hemoglobin 32 pg (27-31); Mean Corpuscular Volume 96 fL (80-97); Mean Platelet Volume 6.5 fL (7.4-10.4); Nucleated Red Blood Cells % 0; Platelet Count 41 10^3/ul (150-450); Red Blood Count 2.77 10^6/ul (4.00-5.40); Red Cell Distribution Width 17 % (10.5-15); White Blood Count 4.5 10^3/ul (3.5-10.8)
[2018-06-11 06:51] LABS: Albumin 2.7 g/dL (3.2-5.2); Albumin/Globulin Ratio 1.4 (1-3); BUN/Creatinine Ratio 18.9 (8-20); Calcium 7.8 mg/dL (8.6-10.3); EGFR Non-African American 78.8 (>60); HDL Cholesterol 106.5 mg/dL; Potassium 3.7 mmol/L (3.5-5.0); Total Bilirubin 0.8 mg/dL (0.2-1.0); Total Protein 4.7 g/dL (6.4-8.9)
[2018-06-11 08:01] LABS: TSH (Thyroid Stimulating Horm) 3.34 mcIU/mL (0.34-5.60)
[2018-06-11] MEDS: Citalopram TAB* 20 MG PO SCH (08:58)
[2018-06-11] MEDS: lamoTRIgine TAB(*) 100 MG PO SCH ×2 (08:58→20:05)
[2018-06-11] MEDS: Dexamethasone TAB* 4 MG PO SCH ×2 (08:58→20:05)
[2018-06-11] MEDS: Lisinopril TAB* 5 MG PO SCH (08:58)
[2018-06-11] MEDS: lamoTRIgine TAB(*) 25 MG PO SCH ×2 (08:58→20:05)
[2018-06-11] MEDS: Sulfamethox/Trimethoprim SS 400/80* TAB PO SCH (09:10)
[2018-06-11] MEDS: Enoxaparin(*) 60 MG/0.6 ML SYR SUBCUT SCH (15:02)
[2018-06-11] MEDS: Melatonin 3 MG TAB PO SCH (19:59)
[2018-06-11] MEDS: clonazePAM TAB(*) 0.5 MG PO SCH (20:05)
--- NOTE | 2018-06-11 21:56 | PN ---
Progress Note - Progress Note Date of Service: 06/11/18 SOAP: Subjective: [Admitted overnight with AMS found to have large burden of PEs. Reports that she is feeling relatively well today. Mental status appears to be returning to baseline. No c/o cough or dyspnea at rest. ] Objective: [ Laboratory Results - last 24 hr 06/10/18 06/10/18 06/10/18 05:30 22:40 22:40 WBC 4.8 RBC 2.98 L Hgb 9.4 L Hct 29 L MCV 96 MCH 32 H MCHC 33 RDW 17 H Plt Count 58 L MPV 6.5 L Neut % (Auto) 83.2 Lymph % (Auto) 5.3 [place] % (Auto) 10.6 Eos % (Auto) 0.5 Baso % (Auto) 0.4 Absolute Neuts (auto) 4.0 Absolute Lymphs (auto) 0.3 L Absolute Monos (auto) 0.5 Absolute Eos (auto) 0 Absolute Basos (auto) 0 Absolute Nucleated RBC 0 Nucleated RBC % 0.2 Platelet Morphology Large Tear Drop Cells 1+ Elliptocytes 1+ Schistocytes 1+ Hem Pathologist Commnt INR (Anticoag Therapy) 1.04 H APTT 32.1 Sodium Potassium Chloride Carbon Dioxide Anion Gap BUN Creatinine Est GFR ( Amer) Est GFR (Non-Af Amer) BUN/Creatinine Ratio Glucose Lactic Acid Calcium Total Bilirubin AST ALT Alkaline Phosphatase Ammonia Total Creatine Kinase C-Reactive Protein Total Protein Albumin Globulin Albumin/Globulin Ratio Triglycerides Cholesterol LDL Cholesterol HDL Cholesterol TSH Urine Color Yellow Urine Appearance Cloudy Urine pH 6.0 Ur Specific [place] 1.035 H Urine Protein Negative Urine Ketones Negative Urine Blood 1+ A Urine Nitrate Negative Urine Bilirubin Negative Urine Urobilinogen Negative Ur Leukocyte Esterase Negative Urine WBC (Auto) Absent Urine RBC (Auto) 3+(>10/hpf) A Ur Squamous Epith Cells Present A Urine Bacteria Absent Urine Glucose Negative 06/10/18 06/10/18 06/11/18 22:40 22:40 06:14 WBC RBC Hgb Hct MCV MCH MCHC RDW Plt Count MPV Neut % (Auto) Lymph % (Auto) [place] % (Auto) Eos % (Auto) Baso % (Auto) Absolute Neuts (auto) Absolute Lymphs (auto) Absolute Monos (auto) Absolute Eos (auto) Absolute Basos (auto) Absolute Nucleated RBC Nucleated RBC % Platelet Morphology Tear Drop Cells Elliptocytes Schistocytes Hem Pathologist Commnt INR (Anticoag Therapy) APTT Sodium 138 Potassium 4.1 Chloride 107 Carbon Dioxide 25 Anion Gap 6 BUN 14 Creatinine 0.78 Est GFR ( Amer) 89.7 Est GFR (Non-Af Amer) 74.1 BUN/Creatinine Ratio 17.9 Glucose 97 Lactic Acid 0.6 Calcium 8.2 L Total Bilirubin 1.00 AST 62 H ALT 35 Alkaline Phosphatase 91 Ammonia 37 Total Creatine Kinase 33 C-Reactive Protein 131.51 H Total Protein 5.1 L Albumin 2.9 L Globulin 2.2 Albumin/Globulin Ratio 1.3 Triglycerides Cholesterol LDL Cholesterol HDL Cholesterol TSH Urine Color Urine Appearance Urine pH Ur Specific [place] Urine Protein Urine Ketones Urine Blood Urine Nitrate Urine Bilirubin Urine Urobilinogen Ur Leukocyte Esterase Urine WBC (Auto) Urine RBC (Auto) Ur Squamous Epith Cells Urine Bacteria Urine Glucose 06/11/18 06/11/18 06:14 06:14 WBC 4.5 RBC 2.77 L Hgb 8.9 L Hct 27 L MCV 96 MCH 32 H MCHC 33 RDW 17 H Plt Count 41 L MPV 6.5 L Neut % (Auto) 82.0 Lymph % (Auto) 6.0 [place] % (Auto) 11.4 Eos % (Auto) 0.5 Baso % (Auto) 0.1 Absolute Neuts (auto) 3.7 Absolute Lymphs (auto) 0.3 L Absolute Monos (auto) 0.5 Absolute Eos (auto) 0 Absolute Basos (auto) 0 Absolute Nucleated RBC 0 Nucleated RBC % 0 Platelet Morphology Tear Drop Cells Elliptocytes Schistocytes Hem Pathologist Commnt INR (Anticoag Therapy) APTT Sodium 138 Potassium 3.7 Chloride 108 Carbon Dioxide 24 Anion Gap 6 BUN 14 Creatinine 0.74 Est GFR ( Amer) 95.3 Est GFR (Non-Af Amer) 78.8 BUN/Creatinine Ratio 18.9 Glucose 96 Lactic Acid Calcium 7.8 L Total Bilirubin 0.80 AST 39 ALT 29 Alkaline Phosphatase 97 Ammonia Total Creatine Kinase C-Reactive Protein Total Protein 4.7 L Albumin 2.7 L Globulin 2.0 Albumin/Globulin Ratio 1.4 Triglycerides 66 Cholesterol 198 LDL Cholesterol 78 HDL Cholesterol 106.5 TSH 3.34 Urine Color Urine Appearance Urine pH Ur Specific [place] Urine Protein Urine Ketones Urine Blood Urine Nitrate Urine Bilirubin Urine Urobilinogen Ur Leukocyte Esterase Urine WBC (Auto) Urine RBC (Auto) Ur Squamous Epith Cells Urine Bacteria Urine Glucose Albuterol (Ventolin 2.5 Mg/3 Ml Neb.Manuela*) 2.5 mg INH [id number] AWAKE PRN PRN Reason: sob/wheezing Citalopram Hydrobromide (Celexa Tab*) 20 mg PO DAILY [facility] Last Admin: 06/11/18 08:58 Dose: 20 mg Clonazepam (Klonopin Tab(*)) 0.5 mg PO BEDTIME [facility] Last Admin: 06/11/18 20:05 Dose: 0.5 mg Codeine Sulfate (Codeine Tab*) 60 mg PO Q3H PRN PRN Reason: PAIN Last Admin: 06/11/18 21:21 Dose: 60 mg Dexamethasone (Decadron Tab*) 4 mg PO BID [facility] Last Admin: 06/11/18 20:05 Dose: 4 mg Enoxaparin Sodium (Lovenox(*)) 60 mg SUBCUT Q12H [facility] Last Admin: 06/11/18 15:02 Dose: 60 mg Hydroxyzine HCl (Atarax Tab*) 50 mg PO DAILY PRN PRN Reason: ITCHING Lamotrigine (Lamictal Tab(*)) 25 mg PO BID [facility] Last Admin: 06/11/18 20:05 Dose: 25 mg Lamotrigine (Lamictal Tab(*)) 100 mg PO BID [facility] Last Admin: 06/11/18 20:05 Dose: 100 mg Lisinopril (Prinivil Tab*) 5 mg PO DAILY [facility] Last Admin: 06/11/18 08:58 Dose: 5 mg Melatonin (Melatonin) 9 mg PO BEDTIME [facility] Last Admin: 06/11/18 19:59 Dose: 9 mg Nystatin (Nystatin Suspension*) 500,000 units PO QID [facility] Stop: 06/18/18 02:08 Last Admin: 06/11/18 20:05 Dose: 500,000 units Omeprazole (Prilosec Cap*) 20 mg PO DAILY PRN; Protocol PRN Reason: NAUSEA Trimethoprim/Sulfamethoxazole (Bactrim Ss 400/80 Tab*) 1 tab PO MoWeFr [facility] Last Admin: 06/11/18 09:10 Dose: 1 tab Vital Signs Temp Pulse Resp BP Pulse Ox 98.2 F 84 16 123/80 96 06/11/18 19:22 06/11/18 19:22 06/11/18 21:21 06/11/18 19:22 06/11/18 19:22 Exam: Gen: Chronically ill appearing 63 yo female in NAD, accompanied by numerous friends and family HEENT: MMM, minimal thrush CV: RRR, no m/r/g Resp: CTA, no w/c/r Abd: soft, nonTTP Ext: no edema Skin: thin, multiple areas of ecchymosis and skin tears in various stages of healing] Assessment: [63 yo female with GBM who presents with AMS found to have bilateral PEs] Plan: [1. PEs - cont Lovenox 1mg/kg bid - noted thrombocytopenia on today's labs but will cont Lovenox at this time and recheck tomorrow - hypoxia related to her PEs is likely responsible for her recent change in mental status 2. GBM - due for restaging scans - MRI with and without contrast tomorrow - Avastin has recently been held for teeth extraction, currently treated with Temodar 3. Thrombocytopenia - likely due to Temodar - repeat CBC tomorrow 4. Skin tears - due to chronic steroid use and Avastin impairing wound healing Dispo: Patient has been relatively successful at home but has had recent increase in falls at home. She requires additional help at home. Referral to [facility]. Discussed care needs with friends and family. They will work to make these arrangements. Anticipate likely dc home tomorrow assuming her platelets recover and MRI is stable]
[2018-06-12] MEDS: Enoxaparin(*) 60 MG/0.6 ML SYR SUBCUT SCH ×2 (03:29→15:28)
[2018-06-12] MEDS: Codeine TAB* 30 MG PO PRN ×4 (04:14→20:02)
[2018-06-12 07:11] LABS: ABS Basophils 0 10^3/ul (0-0.2); ABS Eosinophils 0 10^3/ul (0-0.6); ABS Lymphocytes 0.2 10^3/ul (1.0-4.8); ABS Monocytes 0.3 10^3/ul (0-0.8); ABS Neutrophils 3.7 10^3/ul (1.5-7.7); ABS Nucleated RBC 0 10^3/ul; Eosinophil % 0 %; Hematocrit 26 % (35-47); Hemoglobin 8.4 g/dl (12.0-16.0); Lymphocyte % 5.4 %; Mean Corpuscular HGB Conc 33 g/dl (31-36); Mean Corpuscular Hemoglobin 32 pg (27-31); Mean Corpuscular Volume 97 fL (80-97); Nucleated Red Blood Cells % 0.2; Platelet Count 51 10^3/ul (150-450); Red Blood Count 2.64 10^6/ul (4.00-5.40); Red Cell Distribution Width 17 % (10.5-15); White Blood Count 4.3 10^3/ul (3.5-10.8)
[2018-06-12] MEDS: Citalopram TAB* 20 MG PO SCH (07:55)
[2018-06-12] MEDS: Lisinopril TAB* 5 MG PO SCH (07:55)
[2018-06-12] MEDS: Dexamethasone TAB* 4 MG PO SCH (07:55)
[2018-06-12] MEDS: lamoTRIgine TAB(*) 25 MG PO SCH (07:55)
[2018-06-12] MEDS: lamoTRIgine TAB(*) 100 MG PO SCH ×2 (07:56→20:01)
[2018-06-12] MEDS: Nystatin SUSPENSION* 100000 UNITS/ML 5 ML UDC PO SCH ×4 (07:56→20:02)
[2018-06-12 08:56] LABS: Albumin 2.5 g/dL (3.2-5.2); Total Bilirubin 0.4 mg/dL (0.2-1.0)
[2018-06-12 09:02] LABS: Albumin/Globulin Ratio 1.4 (1-3); BUN/Creatinine Ratio 21.9 (8-20); EGFR Non-African American 93.1 (>60); Globulin 1.8 g/dL (2-4); Total Protein 4.3 g/dL (6.4-8.9)
[2018-06-12 09:05] LABS: Potassium 4.4 mmol/L (3.5-5.0)
--- NOTE | 2018-06-12 10:39 | PN ---
Progress Note - Progress Note Date of Service: 06/12/18 SOAP: Subjective: [No significant changes. New skin tear. MRI pending for this am. 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 and it does not seem possible to accomodate her 24 hour needs at home and subacute rehab has been recommended.] Objective: [ Laboratory Results - last 24 hr 06/10/18 06/12/18 06/12/18 22:40 06:37 06:37 WBC 4.3 RBC 2.64 L Hgb 8.4 L Hct 26 L MCV 97 MCH 32 H MCHC 33 RDW 17 H Plt Count 51 L MPV 8.0 Neut % (Auto) 87.2 Lymph % (Auto) 5.4 [place] % (Auto) 6.8 Eos % (Auto) 0 Baso % (Auto) 0.6 Absolute Neuts (auto) 3.7 Absolute Lymphs (auto) 0.2 L Absolute Monos (auto) 0.3 Absolute Eos (auto) 0 Absolute Basos (auto) 0 Absolute Nucleated RBC 0 Nucleated RBC % 0.2 Hem Pathologist Commnt Sodium 139 Potassium 4.4 Chloride 111 Carbon Dioxide 23 Anion Gap 5 BUN 14 Creatinine 0.64 Est GFR ( Amer) 112.7 Est GFR (Non-Af Amer) 93.1 BUN/Creatinine Ratio 21.9 H Glucose 136 H Calcium 8.0 L Total Bilirubin 0.40 AST 21 ALT 23 Alkaline Phosphatase 89 Total Protein 4.3 L Albumin 2.5 L Globulin 1.8 L Albumin/Globulin Ratio 1.4 Albuterol (Ventolin 2.5 Mg/3 Ml Neb.Manuela*) 2.5 mg INH [id number] AWAKE PRN PRN Reason: sob/wheezing Citalopram Hydrobromide (Celexa Tab*) 20 mg PO DAILY [facility] Last Admin: 06/12/18 07:55 Dose: 20 mg Clonazepam (Klonopin Tab(*)) 0.5 mg PO BEDTIME [facility] Last Admin: 06/11/18 20:05 Dose: 0.5 mg Codeine Sulfate (Codeine Tab*) 60 mg PO Q3H PRN PRN Reason: PAIN Last Admin: 06/12/18 07:54 Dose: 60 mg Dexamethasone (Decadron Tab*) 4 mg PO BID [facility] Last Admin: 06/12/18 07:55 Dose: 4 mg Enoxaparin Sodium (Lovenox(*)) 60 mg SUBCUT Q12H [facility] Last Admin: 06/12/18 03:29 Dose: 60 mg Hydroxyzine HCl (Atarax Tab*) 50 mg PO DAILY PRN PRN Reason: ITCHING Lamotrigine (Lamictal Tab(*)) 25 mg PO BID [facility] Last Admin: 06/12/18 07:55 Dose: 25 mg Lamotrigine (Lamictal Tab(*)) 100 mg PO BID [facility] Last Admin: 06/12/18 07:56 Dose: 100 mg Lisinopril (Prinivil Tab*) 5 mg PO DAILY [facility] Last Admin: 06/12/18 07:55 Dose: 5 mg Melatonin (Melatonin) 9 mg PO BEDTIME [facility] Last Admin: 06/11/18 19:59 Dose: 9 mg Nystatin (Nystatin Suspension*) 500,000 units PO QID [facility] Stop: 06/18/18 02:08 Last Admin: 06/12/18 07:56 Dose: 500,000 units Omeprazole (Prilosec Cap*) 20 mg PO DAILY PRN; Protocol PRN Reason: NAUSEA Trimethoprim/Sulfamethoxazole (Bactrim Ss 400/80 Tab*) 1 tab PO MoWeFr [facility] Last Admin: 06/11/18 09:10 Dose: 1 tab Vital Signs: Temp Pulse Resp BP Pulse Ox 97.6 F 71 17 141/86 96 06/12/18 03:31 06/12/18 03:31 06/12/18 07:57 06/12/18 03:31 06/12/18 03:31 Exam: Gen: Chronically ill appearing 63 yo female in NAD HEENT: MMM, minimal thrush CV: RRR, no m/r/g Resp: CTA, no w/c/r Abd: soft, nonTTP Ext: no edema Skin: thin, multiple areas of ecchymosis and skin tears in various stages of healing] Assessment: [63 yo female with GBM who presents with AMS found to have bilateral PEs] Plan: [1. PEs - cont Lovenox 1mg/kg bid - check antifactor Xa after 4th or 5th dose - noted thrombocytopenia, platelets are now 51K today - hypoxia related to her PEs is likely responsible for her recent change in mental status 2. GBM - due for restaging scans - MRI with and without contrast pending for today - Avastin has recently been held for teeth extraction, currently treated with Temodar 3. Thrombocytopenia and anemia - likely due to Temodar - check stool for occult blood as Hgb has fallen since admission and she is now anticoagulated - cont to monitor CBC 4. Skin tears - due to chronic steroid use and Avastin impairing wound healing Dispo: Patient has been relatively successful at home but has had recent increase in falls at home and is no longer able to independently ambulate. She requires 24h care at home. Case management recommending [facility], pending PT eval
[2018-06-12] MEDS: fentaNYL PATCH 50 MCG/HR TRANSDERM SCH (18:09)
[2018-06-12] MEDS: fentaNYL Patch Check Q Shift 1 NOTE FOLLOW UP SCH (19:17)
[2018-06-12] MEDS: Dexamethasone TAB* 1 MG PO SCH (20:01)
[2018-06-12] MEDS: Melatonin 3 MG TAB PO SCH (20:01)
[2018-06-12] MEDS: clonazePAM TAB(*) 0.5 MG PO SCH (20:01)
[2018-06-13] MEDS: Codeine TAB* 30 MG PO PRN ×5 (03:09→22:33)
[2018-06-13] MEDS: Enoxaparin(*) 60 MG/0.6 ML SYR SUBCUT SCH ×2 (03:10→13:51)
[2018-06-13] MEDS: fentaNYL Patch Check Q Shift 1 NOTE FOLLOW UP SCH ×2 (06:37→19:29)
[2018-06-13] MEDS: Citalopram TAB* 20 MG PO SCH (09:41)
[2018-06-13] MEDS: Lisinopril TAB* 5 MG PO SCH (09:41)
[2018-06-13] MEDS: lamoTRIgine TAB(*) 100 MG PO SCH ×2 (09:41→19:50)
[2018-06-13] MEDS: Nystatin SUSPENSION* 100000 UNITS/ML 5 ML UDC PO SCH ×4 (09:41→19:48)
[2018-06-13 10:00] LABS: ABS Basophils 0 10^3/ul (0-0.2); ABS Eosinophils 0 10^3/ul (0-0.6); ABS Lymphocytes 0.4 10^3/ul (1.0-4.8); ABS Monocytes 0.3 10^3/ul (0-0.8); ABS Neutrophils 2.8 10^3/ul (1.5-7.7); ABS Nucleated RBC 0 10^3/ul; Eosinophil % 0.3 %; Hematocrit 29 % (35-47); Hemoglobin 9.3 g/dl (12.0-16.0); Lymphocyte % 12.3 %; Mean Corpuscular HGB Conc 33 g/dl (31-36); Mean Corpuscular Hemoglobin 31 pg (27-31); Mean Corpuscular Volume 97 fL (80-97); Mean Platelet Volume 8.1 fL (7.4-10.4); Nucleated Red Blood Cells % 0.1; Platelet Count 66 10^3/ul (150-450); Red Blood Count 2.95 10^6/ul (4.00-5.40); Red Cell Distribution Width 17 % (10.5-15); White Blood Count 3.6 10^3/ul (3.5-10.8)
[2018-06-13 10:14] LABS: Albumin 3.2 g/dL (3.2-5.2); Albumin/Globulin Ratio 1.2 (1-3); BUN/Creatinine Ratio 14.1 (8-20); Calcium 8.7 mg/dL (8.6-10.3); EGFR Non-African American 82.6 (>60); Globulin 2.6 g/dL (2-4); Potassium 3.4 mmol/L (3.5-5.0); Total Bilirubin 0.3 mg/dL (0.2-1.0); Total Protein 5.8 g/dL (6.4-8.9)
[2018-06-13] MEDS ORDERED: Gadoteridol* (CONTRAST) 279.3 MG/ML 10 ML IV ONE (10:37)
[2018-06-13] MEDS: Dexamethasone TAB* 1 MG PO SCH ×2 (10:47→19:47)
[2018-06-13] MEDS: Sulfamethox/Trimethoprim SS 400/80* TAB PO SCH (10:48)
[2018-06-13 13:15] LABS: CD3 194 cells/mcL (550-2202); CD4 89 cells/mcL (365-1437)
[2018-06-13] MEDS: Ondansetron INJ* 2 MG/ML VIAL IV SCH ×3 (13:58→20:00)
[2018-06-13] MEDS: clonazePAM TAB(*) 0.5 MG PO SCH (19:46)
[2018-06-13] MEDS: Melatonin 3 MG TAB PO SCH (19:47)
[2018-06-14] MEDS: Ondansetron INJ* 2 MG/ML VIAL IV SCH ×6 (00:49→21:56)
[2018-06-14] MEDS: Enoxaparin(*) 60 MG/0.6 ML SYR SUBCUT SCH ×2 (02:28→14:19)
[2018-06-14] MEDS: Codeine TAB* 30 MG PO PRN ×5 (06:04→21:50)
[2018-06-14] MEDS: fentaNYL Patch Check Q Shift 1 NOTE FOLLOW UP SCH ×2 (07:10→18:45)
--- NOTE | 2018-06-14 07:46 | PN ---
Progress Note - Progress Note Date of Service: 06/13/18 SOAP: Subjective: [No new complaints. Remains weak, 2 assist to commode. In good spirits and agreeable with plan for rehab.] Objective: [ Albuterol (Ventolin 2.5 Mg/3 Ml Neb.Manuela*) 2.5 mg INH [id number] AWAKE PRN PRN Reason: sob/wheezing Citalopram Hydrobromide (Celexa Tab*) 20 mg PO DAILY [facility] Last Admin: 06/13/18 09:41 Dose: 20 mg Clonazepam (Klonopin Tab(*)) 0.5 mg PO BEDTIME [facility] Last Admin: 06/13/18 19:46 Dose: 0.5 mg Codeine Sulfate (Codeine Tab*) 60 mg PO Q3H PRN PRN Reason: PAIN Last Admin: 06/14/18 06:04 Dose: 60 mg Dexamethasone (Decadron Tab*) 4 mg PO TID [facility] Enoxaparin Sodium (Lovenox(*)) 60 mg SUBCUT Q12H [facility] Last Admin: 06/14/18 02:28 Dose: 60 mg Fentanyl (Duragesic Patch 50 Mcg/Hr*) 50 mcg TRANSDERM Q72H [facility] Last Admin: 06/12/18 18:09 Dose: 50 mcg Hydroxyzine HCl (Atarax Tab*) 50 mg PO DAILY PRN PRN Reason: ITCHING Lamotrigine (Lamictal Tab(*)) 100 mg PO BID [facility] Last Admin: 06/13/18 19:50 Dose: 100 mg Lisinopril (Prinivil Tab*) 5 mg PO DAILY [facility] Last Admin: 06/13/18 09:41 Dose: 5 mg Melatonin (Melatonin) 9 mg PO BEDTIME [facility] Last Admin: 06/13/18 19:47 Dose: 9 mg Nystatin (Nystatin Suspension*) 500,000 units PO QID [facility] Stop: 06/18/18 02:08 Last Admin: 06/13/18 19:48 Dose: 500,000 units Omeprazole (Prilosec Cap*) 20 mg PO DAILY PRN; Protocol PRN Reason: NAUSEA Ondansetron HCl (Zofran Inj*) 4 mg IV Q4H [facility] Last Admin: 06/14/18 06:00 Dose: Not Given Pharmacy Profile Note (Fentanyl Patch Check Q Shift) 1 note FOLLOW UP 0700, 1900 [facility] Last Admin: 06/14/18 07:10 Dose: 1 note Trimethoprim/Sulfamethoxazole (Bactrim Ss 400/80 Tab*) 1 tab PO MoWeFr [facility] Last Admin: 06/13/18 10:48 Dose: 1 tab Laboratory Results - last 24 hr 06/11/18 06/13/18 06/13/18 06:14 09:50 09:50 WBC 3.6 RBC 2.95 L Hgb 9.3 L Hct 29 L MCV 97 MCH 31 MCHC 33 RDW 17 H Plt Count 66 L MPV 8.1 Neut % (Auto) 77.9 Lymph % (Auto) 12.3 [place] % (Auto) 8.6 Eos % (Auto) 0.3 Baso % (Auto) 0.9 Absolute Neuts (auto) 2.8 Absolute Lymphs (auto) 0.4 L Absolute Monos (auto) 0.3 Absolute Eos (auto) 0 Absolute Basos (auto) 0 Absolute Nucleated RBC 0 Nucleated RBC % 0.1 Sodium 140 Potassium 3.4 L Chloride 108 Carbon Dioxide 24 Anion Gap 8 BUN 10 Creatinine 0.71 Est GFR ( Amer) 100.0 Est GFR (Non-Af Amer) 82.6 BUN/Creatinine Ratio 14.1 Glucose 115 H Calcium 8.7 Total Bilirubin 0.30 AST 11 L ALT 20 Alkaline Phosphatase 95 Total Protein 5.8 L Albumin 3.2 Globulin 2.6 Albumin/Globulin Ratio 1.2 % CD3 Cells 83 Absolute CD3 Count 194 L % CD4 Cells 38 Absolute CD4 Count 89 L CD4/CD3 Ratio 0.9 % CD8 Cells 45 H Absolute CD8 Count 105 Absolute CD45 Count 0.24 L Vital Signs Temp Pulse Resp BP Pulse Ox 98.1 F 68 17 133/75 97 06/14/18 03:46 06/14/18 03:46 06/14/18 06:04 06/14/18 03:46 06/14/18 03:46 Exam: Gen: Chronically ill appearing 63 yo female in NAD. Accompanied by caregivers. HEENT: MMM, minimal thrush CV: RRR, no m/r/g Resp: CTA, no w/c/r Abd: soft, nonTTP Ext: no edema Skin: thin, multiple areas of ecchymosis and skin tears in various stages of healing] Assessment: [63 yo female with GBM who presents with AMS found to have bilateral PEs] Plan: [1. PEs - cont Lovenox 1mg/kg bid - check antifactor Xa after 4th or 5th dose - noted thrombocytopenia, but have been >50k for last 2d - may need to consider IVC filter prior to dc - hypoxia related to her PEs is likely responsible for her recent change in mental status 2. GBM - MRI reviewed - 2 lesions appear stable to slightly improved - associated edema may be slightly worse - no shift - Avastin has recently been held for teeth extraction, currently treated with Temodar - will plan to cont current tx (can cont to hold Avastin in the short term if necessary while at [facility]) - increase dexamethasone from 2 bid to 4 tid at this time and eval for improvement in strength/balance - can taper back down when Avastin is resumed 3. Thrombocytopenia and anemia - likely due to Temodar - check stool for occult blood as Hgb has fallen since admission and she is now anticoagulated - cont to monitor CBC 4. Skin tears - due to chronic steroid use and Avastin impairing wound healing Dispo: Patient has been relatively successful at home but has had recent increase in falls at home and is no longer able to independently ambulate. She requires 24h care at home. Case management recommending [facility], pt is in agreement with this plan
[2018-06-14] MEDS: Omeprazole CAP* 20 MG PO PRN (08:32)
[2018-06-14] MEDS: Lisinopril TAB* 5 MG PO SCH (08:32)
[2018-06-14] MEDS: Dexamethasone TAB* 4 MG PO SCH ×3 (08:32→21:55)
[2018-06-14] MEDS: Nystatin SUSPENSION* 100000 UNITS/ML 5 ML UDC PO SCH ×4 (08:33→21:55)
[2018-06-14] MEDS: lamoTRIgine TAB(*) 100 MG PO SCH ×2 (08:33→21:54)
[2018-06-14] MEDS: Citalopram TAB* 20 MG PO SCH (08:33)
[2018-06-14] MEDS: Potassium Chlor TAB* 20 MEQ TAB.ER PO SCH (10:17)
[2018-06-14 10:20] LABS: ABS Basophils 0 10^3/ul (0-0.2); ABS Eosinophils 0 10^3/ul (0-0.6); ABS Lymphocytes 0.3 10^3/ul (1.0-4.8); ABS Monocytes 0.4 10^3/ul (0-0.8); ABS Neutrophils 3.5 10^3/ul (1.5-7.7); ABS Nucleated RBC 0 10^3/ul; Eosinophil % 0.7 %; Hematocrit 23 % (35-47); Hemoglobin 7.6 g/dl (12.0-16.0); Lymphocyte % 6.3 %; Mean Corpuscular HGB Conc 33 g/dl (31-36); Mean Corpuscular Hemoglobin 32 pg (27-31); Mean Corpuscular Volume 96 fL (80-97); Nucleated Red Blood Cells % 0; Platelet Count 61 10^3/ul (150-450); Red Blood Count 2.39 10^6/ul (4.00-5.40); Red Cell Distribution Width 17 % (10.5-15); White Blood Count 4.2 10^3/ul (3.5-10.8)
[2018-06-14 10:45] LABS: Albumin 2.7 g/dL (3.2-5.2); Albumin/Globulin Ratio 1.2 (1-3); BUN/Creatinine Ratio 16.9 (8-20); Calcium 8.2 mg/dL (8.6-10.3); EGFR Non-African American 82.6 (>60); Globulin 2.3 g/dL (2-4); Potassium 3.4 mmol/L (3.5-5.0); Total Bilirubin 0.2 mg/dL (0.2-1.0)
[2018-06-14] MEDS: Melatonin 3 MG TAB PO SCH (21:55)
[2018-06-14] MEDS: clonazePAM TAB(*) 0.5 MG PO SCH (21:55)
[2018-06-15] MEDS: Ondansetron INJ* 2 MG/ML VIAL IV SCH ×3 (01:23→09:26)
[2018-06-15] MEDS: Codeine TAB* 30 MG PO PRN ×5 (01:23→22:56)
[2018-06-15] MEDS: Enoxaparin(*) 60 MG/0.6 ML SYR SUBCUT SCH ×2 (02:30→14:14)
[2018-06-15] MEDS: fentaNYL Patch Check Q Shift 1 NOTE FOLLOW UP SCH ×2 (07:10→19:17)
[2018-06-15] MEDS: Lisinopril TAB* 5 MG PO SCH (09:23)
[2018-06-15] MEDS: Nystatin SUSPENSION* 100000 UNITS/ML 5 ML UDC PO SCH ×4 (09:24→19:32)
[2018-06-15] MEDS: Citalopram TAB* 20 MG PO SCH (09:24)
[2018-06-15] MEDS: Potassium Chlor TAB* 20 MEQ TAB.ER PO SCH (09:24)
[2018-06-15] MEDS: lamoTRIgine TAB(*) 100 MG PO SCH ×2 (09:24→19:32)
[2018-06-15] MEDS: Dexamethasone TAB* 4 MG PO SCH ×3 (09:24→19:32)
[2018-06-15] MEDS ORDERED: Ondansetron INJ* 2 MG/ML VIAL IV PRN (13:09)
[2018-06-15] MEDS: fentaNYL PATCH 50 MCG/HR TRANSDERM SCH (17:20)
[2018-06-15] MEDS: clonazePAM TAB(*) 0.5 MG PO SCH (19:31)
[2018-06-15] MEDS: Melatonin 3 MG TAB PO SCH (19:32)
[2018-06-16] MEDS: Enoxaparin(*) 60 MG/0.6 ML SYR SUBCUT SCH ×2 (02:23→15:14)
[2018-06-16] MEDS: Omeprazole CAP* 20 MG PO PRN (02:35)
[2018-06-16] MEDS: Codeine TAB* 30 MG PO PRN ×5 (02:36→20:52)
[2018-06-16] MEDS: fentaNYL Patch Check Q Shift 1 NOTE FOLLOW UP SCH ×2 (07:21→19:25)
[2018-06-16] MEDS: Lisinopril TAB* 5 MG PO SCH (07:33)
[2018-06-16] MEDS: lamoTRIgine TAB(*) 100 MG PO SCH ×2 (07:33→20:53)
[2018-06-16] MEDS: Citalopram TAB* 20 MG PO SCH (07:34)
[2018-06-16] MEDS: Dexamethasone TAB* 4 MG PO SCH ×3 (07:34→20:54)
[2018-06-16] MEDS: Nystatin SUSPENSION* 100000 UNITS/ML 5 ML UDC PO SCH ×4 (07:34→20:53)
[2018-06-16] MEDS: Potassium Chlor TAB* 20 MEQ TAB.ER PO SCH (07:34)
[2018-06-16 07:40] LABS: ABS Basophils 0 10^3/ul (0-0.2); ABS Eosinophils 0 10^3/ul (0-0.6); ABS Lymphocytes 0.5 10^3/ul (1.0-4.8); ABS Monocytes 0.3 10^3/ul (0-0.8); ABS Nucleated RBC 0 10^3/ul; Eosinophil % 0.2 %; Hematocrit 24 % (35-47); Mean Corpuscular HGB Conc 33 g/dl (31-36); Mean Corpuscular Hemoglobin 32 pg (27-31); Mean Corpuscular Volume 96 fL (80-97); Mean Platelet Volume 7.9 fL (7.4-10.4); Nucleated Red Blood Cells % 0.1; Platelet Count 70 10^3/ul (150-450); Red Blood Count 2.54 10^6/ul (4.00-5.40); Red Cell Distribution Width 17 % (10.5-15); White Blood Count 3.8 10^3/ul (3.5-10.8)
[2018-06-16 07:51] LABS: BUN/Creatinine Ratio 17.1 (8-20); Calcium 8.3 mg/dL (8.6-10.3); EGFR Non-African American 76.4 (>60); Potassium 3.6 mmol/L (3.5-5.0)
[2018-06-16] MEDS: Sulfamethox/Trimethoprim SS 400/80* TAB PO SCH (09:18)
[2018-06-16] MEDS ORDERED: Ondansetron ODT TAB* 4 MG ONE (13:14)
[2018-06-16] MEDS ORDERED: Ondansetron ODT TAB* 4 MG PO PRN (13:15)
[2018-06-16] MEDS: hydrOXYzine HCL TAB* 50 MG PO PRN (16:41)
--- NOTE | 2018-06-16 17:01 | PN ---
Progress Note - Progress Note Date of Service: 06/16/18 SOAP: Subjective: []Better. She is walking more. Met with today, working on her will, but in good spirits. She would like a blood transfusion. No more chest pain. Albuterol (Ventolin 2.5 Mg/3 Ml Neb.Manuela*) 2.5 mg INH [id number] AWAKE PRN PRN Reason: sob/wheezing Citalopram Hydrobromide (Celexa Tab*) 20 mg PO DAILY [facility] Last Admin: 06/16/18 07:34 Dose: 20 mg Clonazepam (Klonopin Tab(*)) 0.5 mg PO BEDTIME [facility] Last Admin: 06/15/18 19:31 Dose: 0.5 mg Codeine Sulfate (Codeine Tab*) 60 mg PO Q3H PRN PRN Reason: PAIN Last Admin: 06/16/18 15:25 Dose: 60 mg Dexamethasone (Decadron Tab*) 4 mg PO TID [facility] Last Admin: 06/16/18 13:04 Dose: 4 mg Enoxaparin Sodium (Lovenox(*)) 60 mg SUBCUT Q12H [facility] Last Admin: 06/16/18 15:14 Dose: 60 mg Fentanyl (Duragesic Patch 50 Mcg/Hr*) 50 mcg TRANSDERM Q72H [facility] Last Admin: 06/15/18 17:20 Dose: 50 mcg Hydroxyzine HCl (Atarax Tab*) 50 mg PO DAILY PRN PRN Reason: ITCHING Last Admin: 06/16/18 16:41 Dose: 50 mg Lamotrigine (Lamictal Tab(*)) 100 mg PO BID [facility] Last Admin: 06/16/18 07:33 Dose: 100 mg Lisinopril (Prinivil Tab*) 5 mg PO DAILY [facility] Last Admin: 06/16/18 07:33 Dose: 5 mg Melatonin (Melatonin) 9 mg PO BEDTIME [facility] Last Admin: 06/15/18 19:32 Dose: 9 mg Nystatin (Nystatin Suspension*) 500,000 units PO QID [facility] Stop: 06/18/18 02:08 Last Admin: 06/16/18 16:40 Dose: 500,000 units Omeprazole (Prilosec Cap*) 20 mg PO DAILY PRN; Protocol PRN Reason: NAUSEA Last Admin: 06/16/18 02:35 Dose: 20 mg Ondansetron HCl (Zofran Odt Tab*) 4 mg PO Q4H PRN PRN Reason: NAUSEA/VOMITING Pharmacy Profile Note (Fentanyl Patch Check Q Shift) 1 note FOLLOW UP 0700, 1900 [facility] Last Admin: 06/16/18 07:21 Dose: 1 note Potassium Chloride (Klor Con Er Tab*) 20 meq PO DAILY [facility] Last Admin: 06/16/18 07:34 Dose: 20 meq Trimethoprim/Sulfamethoxazole (Bactrim Ss 400/80 Tab*) 1 tab PO MoWeFr [facility] Last Admin: 06/16/18 09:18 Dose: 1 tab Objective: [] Vital Signs Temp Pulse Resp BP Pulse Ox 97.7 F 62 16 142/89 97 06/16/18 07:55 06/16/18 07:55 06/16/18 15:25 06/16/18 07:55 06/16/18 07:55 Exam: Gen: looks better, no acute distress HEENT: MMM, minimal thrush CV: RRR, no m/r/g Resp: CTA, no w/c/r Abd: soft, nonTTP Ext: no edema Skin: thin, multiple areas of ecchymosis and skin tears in various stages of healing] Neuro/MK: better walked today with me as single assist through room, down martins. Assessment: [63 yo female with GBM who presents with AMS found to have bilateral PEs. Had follow up MRI and GBM is stable on TMZ and Avastin] Plan: [1. PEs - cont Lovenox 1mg/kg bid, tolerating well. - check antifactor Xa after am dose tomorrow. 2. Hematology - Thrombocytopenia. Bertin 2nd to TMZ, follow and will need to monitor CBC after next cycle chemotherapy. Continue anticoagulation. - Anemia, check iron studies and then Tx 2 U PRBC 3. GBM. MRI personally reviewed - 2 lesions appear stable to slightly improved from March, marked improvement from August. Will continue TMZ, Avastin will be held for NHP. Will try and taper Dex to 4 mg po bid. 4. Skin tears - due to chronic steroid use and Avastin impairing wound healing 5. Long history of falls at home. Agreeable to NHP at this time. She is improved and question of if PMRU with improved home support is possible. 6. Chest pain likely GERD, PPI to bid
[2018-06-16 18:14] LABS: Iron 45 ug/dL (50-212); Total Iron Binding Capacity 379 mcg/dL (250-450); Transferrin 271 mg/dL (203-362)
[2018-06-16] MEDS: Melatonin 3 MG TAB PO SCH (20:52)
[2018-06-16] MEDS: clonazePAM TAB(*) 0.5 MG PO SCH (20:53)
[2018-06-16] MEDS: Omeprazole CAP* 20 MG PO SCH (20:53)
[2018-06-17] MEDS: Enoxaparin(*) 60 MG/0.6 ML SYR SUBCUT SCH ×2 (02:18→15:45)
[2018-06-17] MEDS: Codeine TAB* 30 MG PO PRN ×5 (02:19→19:06)
[2018-06-17 06:27] LABS: ABS Basophils 0 10^3/ul (0-0.2); ABS Eosinophils 0 10^3/ul (0-0.6); ABS Lymphocytes 0.4 10^3/ul (1.0-4.8); ABS Monocytes 0.3 10^3/ul (0-0.8); ABS Neutrophils 3.7 10^3/ul (1.5-7.7); ABS Nucleated RBC 0 10^3/ul; Eosinophil % 0.1 %; Hematocrit 24 % (35-47); Hemoglobin 7.9 g/dl (12.0-16.0); Lymphocyte % 9.1 %; Mean Corpuscular HGB Conc 33 g/dl (31-36); Mean Corpuscular Hemoglobin 32 pg (27-31); Mean Corpuscular Volume 96 fL (80-97); Mean Platelet Volume 7.9 fL (7.4-10.4); Nucleated Red Blood Cells % 0; Platelet Count 64 10^3/ul (150-450); Red Cell Distribution Width 17 % (10.5-15); White Blood Count 4.4 10^3/ul (3.5-10.8)
[2018-06-17 06:43] LABS: Albumin 2.7 g/dL (3.2-5.2); Albumin/Globulin Ratio 1.3 (1-3); BUN/Creatinine Ratio 22.6 (8-20); Calcium 8.2 mg/dL (8.6-10.3); EGFR Non-African American 96.6 (>60); Globulin 2.1 g/dL (2-4); Potassium 4.3 mmol/L (3.5-5.0); Total Bilirubin 0.2 mg/dL (0.2-1.0); Total Protein 4.8 g/dL (6.4-8.9)
[2018-06-17] MEDS: fentaNYL Patch Check Q Shift 1 NOTE FOLLOW UP SCH ×2 (06:56→19:00)
[2018-06-17] MEDS: lamoTRIgine TAB(*) 100 MG PO SCH ×2 (09:20→21:19)
[2018-06-17] MEDS: Lisinopril TAB* 5 MG PO SCH (09:20)
[2018-06-17] MEDS: Dexamethasone TAB* 4 MG PO SCH ×2 (09:20→21:19)
[2018-06-17] MEDS: Omeprazole CAP* 20 MG PO SCH ×2 (09:21→21:19)
[2018-06-17] MEDS: Nystatin SUSPENSION* 100000 UNITS/ML 5 ML UDC PO SCH ×4 (09:21→21:17)
[2018-06-17] MEDS: Citalopram TAB* 20 MG PO SCH (09:21)
[2018-06-17] MEDS: Potassium Chlor TAB* 20 MEQ TAB.ER PO SCH (09:21)
--- NOTE | 2018-06-17 12:08 | PN ---
Progress Note - Progress Note Date of Service: 06/17/18 SOAP: Subjective: [No new complaints. She is frustrated that her brain is not working as she would like.] Objective: [ Laboratory Results - last 24 hr 06/16/18 06/17/18 06/17/18 17:25 06:00 06:00 WBC 4.4 RBC 2.50 L Hgb 7.9 L Hct 24 L MCV 96 MCH 32 H MCHC 33 RDW 17 H Plt Count 64 L MPV 7.9 Neut % (Auto) 84.2 Lymph % (Auto) 9.1 [place] % (Auto) 6.5 Eos % (Auto) 0.1 Baso % (Auto) 0.1 Absolute Neuts (auto) 3.7 Absolute Lymphs (auto) 0.4 L Absolute Monos (auto) 0.3 Absolute Eos (auto) 0 Absolute Basos (auto) 0 Absolute Nucleated RBC 0 Nucleated RBC % 0 Sodium 141 Potassium 4.3 Chloride 111 Carbon Dioxide 25 Anion Gap 5 BUN 14 Creatinine 0.62 Est GFR ( Amer) 116.9 Est GFR (Non-Af Amer) 96.6 BUN/Creatinine Ratio 22.6 H Glucose 92 Calcium 8.2 L Iron 45 L TIBC 379 % Saturation 12 L Unsat Iron Binding < 364 Transferrin 271 Ferritin 86.0 Total Bilirubin 0.20 AST 9 L ALT 12 Alkaline Phosphatase 69 Total Protein 4.8 L Albumin 2.7 L Globulin 2.1 Albumin/Globulin Ratio 1.3 Vitamin B12 302 Albuterol (Ventolin 2.5 Mg/3 Ml Neb.Manuela*) 2.5 mg INH [id number] AWAKE PRN PRN Reason: sob/wheezing Citalopram Hydrobromide (Celexa Tab*) 20 mg PO DAILY [facility] Last Admin: 06/17/18 09:21 Dose: 20 mg Clonazepam (Klonopin Tab(*)) 0.5 mg PO BEDTIME [facility] Last Admin: 06/16/18 20:53 Dose: 0.5 mg Codeine Sulfate (Codeine Tab*) 60 mg PO Q3H PRN PRN Reason: PAIN Last Admin: 06/17/18 09:20 Dose: 60 mg Dexamethasone (Decadron Tab*) 4 mg PO BID [facility] Last Admin: 06/17/18 09:20 Dose: 4 mg Enoxaparin Sodium (Lovenox(*)) 60 mg SUBCUT Q12H [facility] Last Admin: 06/17/18 02:18 Dose: 60 mg Fentanyl (Duragesic Patch 50 Mcg/Hr*) 50 mcg TRANSDERM Q72H [facility] Last Admin: 06/15/18 17:20 Dose: 50 mcg Hydroxyzine HCl (Atarax Tab*) 50 mg PO DAILY PRN PRN Reason: ITCHING Last Admin: 06/16/18 16:41 Dose: 50 mg Lamotrigine (Lamictal Tab(*)) 100 mg PO BID [facility] Last Admin: 06/17/18 09:20 Dose: 100 mg Lisinopril (Prinivil Tab*) 5 mg PO DAILY [facility] Last Admin: 06/17/18 09:20 Dose: 5 mg Melatonin (Melatonin) 9 mg PO BEDTIME [facility] Last Admin: 06/16/18 20:52 Dose: 9 mg Nystatin (Nystatin Suspension*) 500,000 units PO QID [facility] Stop: 06/18/18 02:08 Last Admin: 06/17/18 09:21 Dose: 500,000 units Omeprazole (Prilosec Cap*) 20 mg PO BID [facility]; Protocol Last Admin: 06/17/18 09:21 Dose: 20 mg Ondansetron HCl (Zofran Odt Tab*) 4 mg PO Q4H PRN PRN Reason: NAUSEA/VOMITING Pharmacy Profile Note (Fentanyl Patch Check Q Shift) 1 note FOLLOW UP 0700, 1900 [facility] Last Admin: 06/17/18 06:56 Dose: 1 note Potassium Chloride (Klor Con Er Tab*) 20 meq PO DAILY [facility] Last Admin: 06/17/18 09:21 Dose: 20 meq Trimethoprim/Sulfamethoxazole (Bactrim Ss 400/80 Tab*) 1 tab PO MoWeFr [facility] Last Admin: 06/16/18 09:18 Dose: 1 tab Vital Signs: Temp Pulse Resp BP Pulse Ox 98.4 F 59 18 165/84 100 06/17/18 07:14 06/17/18 07:14 18 09:20 18 07:14 06/17/18 07:14 Assessment: 63 yo female with GBM who presents with AMS found to have bilateral PEs Plan: [1. PEs - cont Lovenox 1mg/kg bid - antifactor Xa level pending - noted thrombocytopenia, stable >50K - hypoxia related to her PEs is likely responsible for her recent change in mental status 2. GBM - MRI reviewed - 2 lesions appear stable to slightly improved - associated edema may be slightly worse - no shift - Avastin has recently been held for teeth extraction, currently treated with Temodar - will plan to cont current tx with Temodar and Avastin (can cont to hold Avastin in the short term if necessary while at [facility]) - cont dexamethasone 4mg bid 3. Thrombocytopenia and anemia - likely due to Temodar - stool neg for occult blood - transfuse 1U PRBCs today 4. Skin tears - due to chronic steroid use and Avastin impairing wound healing Dispo: Plan for dc to [facility] while working to arrange 24h care at home, plan to dc home to [facility]
[2018-06-17] MEDS: Melatonin 3 MG TAB PO SCH (21:18)
[2018-06-17] MEDS: clonazePAM TAB(*) 0.5 MG PO SCH (21:19)
[2018-06-17] MEDS: hydrOXYzine HCL TAB* 50 MG PO PRN (21:20)
[2018-06-18] MEDS: Enoxaparin(*) 60 MG/0.6 ML SYR SUBCUT SCH (03:22)
[2018-06-18] MEDS: lamoTRIgine TAB(*) 100 MG PO SCH (07:56)
[2018-06-18] MEDS: Dexamethasone TAB* 4 MG PO SCH (07:56)
[2018-06-18] MEDS: Lisinopril TAB* 5 MG PO SCH (07:56)
[2018-06-18] MEDS: Citalopram TAB* 20 MG PO SCH (07:56)
[2018-06-18] MEDS: Potassium Chlor TAB* 20 MEQ TAB.ER PO SCH (07:56)
[2018-06-18] MEDS: Omeprazole CAP* 20 MG PO SCH (07:56)
[2018-06-18] MEDS: Sulfamethox/Trimethoprim SS 400/80* TAB PO SCH (07:57)
[2018-06-18] MEDS: fentaNYL Patch Check Q Shift 1 NOTE FOLLOW UP SCH (07:58)
[2018-06-18] MEDS ORDERED: Codeine TAB* 30 MG PO PRN (08:07)
[2018-06-18 09:26] LABS: ABS Basophils 0 10^3/ul (0-0.2); ABS Eosinophils 0 10^3/ul (0-0.6); ABS Lymphocytes 0.4 10^3/ul (1.0-4.8); ABS Monocytes 0.4 10^3/ul (0-0.8); ABS Neutrophils 3.8 10^3/ul (1.5-7.7); ABS Nucleated RBC 0 10^3/ul; Eosinophil % 0.2 %; Hematocrit 29 % (35-47); Hemoglobin 9.8 g/dl (12.0-16.0); Lymphocyte % 8.1 %; Mean Corpuscular HGB Conc 34 g/dl (31-36); Mean Corpuscular Hemoglobin 32 pg (27-31); Mean Corpuscular Volume 94 fL (80-97); Mean Platelet Volume 8.3 fL (7.4-10.4); Nucleated Red Blood Cells % 0; Platelet Count 74 10^3/ul (150-450); Red Cell Distribution Width 18 % (10.5-15); White Blood Count 4.6 10^3/ul (3.5-10.8)
[2018-06-18 11:34] VITALS: BP 128/79
--- NOTE | 2018-06-18 11:53 | DS ---
CC: Dr. Sifuentes; Dr. Rao Medrano * DISCHARGE SUMMARY: DATE OF ADMISSION: 06/11/18. DATE OF DISCHARGE: 06/18/18. PRIMARY CARE PROVIDER: Dr. Sifuentes. PRIMARY ONCOLOGIST: Dr. Medrano. ATTENDING PHYSICIAN: Dr. Jose Rafael Stapleton.* (DICTATED BY JULIA TRUONG) DISCHARGING PROVIDER: JULIA Truong. PRIMARY DISCHARGE DIAGNOSES: 1. Multiple bilateral pulmonary emboli. 2. Glioblastoma multiforme - stable on restaging MRI during hospitalization. 3. Thrombocytopenia secondary to Temodar. 4. Multiple skin tears secondary to chronic steroid use and Avastin. DISCHARGE MEDICATIONS: 1. Clonazepam 0.5 mg p.o. q.6 hours as needed for anxiety and before bed. 2. Codeine 60 mg p.o. q.3 hours as needed for pain. 4. Lexapro 5 mg p.o. daily. 5. Nexium 20 mg p.o. daily. 6. Fentanyl patch 50 mcg, apply topically every 72 hours. 7. Hydroxyzine 50 mg p.o. daily as needed for itching. 8. Lamictal 100 mg p.o. twice daily. 9. Melatonin 10 mg before bedtime. 10. Dexamethasone 4 mg p.o. twice daily. 11. Lovenox 60 mg subcu twice daily. 12. Zofran 4 mg p.o. to take 30 minutes prior to Temodar and every 4 hours as needed for nausea and vomiting. 13. Temodar 320 mg p.o. daily for 5 days of a 28-day cycle, next cycle to start 06/23/18. Medication changes: 1. Increased dexamethasone from 2 mg twice daily to 4 mg twice daily. 2. Start Lovenox. HOSPITAL IMAGIN. Chest x-ray 06/10/18, demonstrates right upper lobe consolidation. 2. CT brain shows no acute pathology, demonstrates no vasogenic edema throughout the white matter of the right frontal and parietal lobes, consistent with known prior disease. 3. CT lumbar spine, no acute findings. 4. Thoracic CT, no acute fracture, patchy airspace opacities and focal consolidation in the posterior aspects of the right upper and lower lobes. 5. CTA chest demonstrates bilateral pulmonary emboli as well as airspace opacities and focal consolidation in the posterior aspects of the right upper and lower lobes. 6. MRI brain with and without contrast, 06/13/18, shows enhancing lesions of the right posterior frontal and anterior parietal lobe, stable in size and appearance compared to March 2018 exam. There is diffusely elevated T2 FLAIR signal in the periventricular and subcortical white matter bilaterally, greater on the right than left consisted with treatment effect. HOSPITAL COURSE: This is a 63-year-old female under the care of Dr. Medrano for GBM, currently treated with Temodar and Avastin, who was brought to the hospital for altered mental status. The patient had had change in behavior and increased falls over the 4 to 5 days preceding her hospitalization. In the emergency department, her initial vital signs were within normal limits. Initial labs showed a stable anemia and moderate thrombocytopenia. Chemistries were unremarkable. Urinalysis negative. Initial chest x-ray demonstrated a right upper lobe consolidation followed by a CTA of the chest, which then demonstrated multiple bilateral PEs. The patient had no clinical findings suggestive of pneumonia. The airspace opacities appreciated on both chest x- ray and CT were thought to likely represent pulmonary infarct as a result of her multiple PEs rather than an infectious etiology. The patient was subsequently anticoagulated with Lovenox. Platelet count remained stable between 60,000 and 70,000. She had no significant bleeding events. The patient was noted to be extremely weak and required 2-person assist when she first reached the hospital and requires 24-hour care at home. Recommendation was made for subacute rehab and she worked with physical therapy with some improvement in strength during this hospitalization. During this hospitalization, MRI of the brain was performed, which demonstrated stability of her GBM. Plans at this time is to continue her current treatment of Temodar 5 days of the 28-day cycle and Avastin every 2 weeks. Avastin had been held recently with plans for dental extraction, but now that she is requiring anticoagulation that cannot be safely interrupted for an elective procedure the extraction will be delayed. The Avastin will continue to be held while at subacute rehab with plans to resume following discharge. Her dexamethasone was increased during this hospitalization as well, as her edema looked potentially worse since holding the Avastin. She did have increase in strength, whether this is a result of physical therapy or increase in her dexamethasone is hard to tell, but recommended continuing the higher dose of dexamethasone at the time of discharge. DISPOSITION AND FOLLOWUP PLAN: The patient is being discharged to [facility] for subacute rehab. She has a scheduled followup with Dr. Medrano for 06/27/18 which she is encouraged to keep. Next cycle of Temodar will start on 06/23/18. She should take Zofran with her dose of Temodar 30 minutes prior. The patient has chronic skin tears related to her steroid use and Avastin interfering with wound healing. We will continue to dress the active skin tears with non-stick dressings, but otherwise no other specific intervention indicated. JULIA TRUONG [id number]/[facility] #: [id number] LOPEZ
== END 2018-06-18 12:15 | DRG 134 ==
LOC: ED 21:32 → MEDTELE 06-11 01:58 → MED 06-17 17:05
PROVIDERS: ADMIT Internal Medicine; ATTEND Internal Medicine Hematology & Oncology
PROC: 30233N1 Transfusion of Nonautologous Red Blood Cells into Peripheral Vein, Percutaneous Approach (ICD-10-PCS; principal; 2018-06-17)
DX: I26.99 Other pulmonary embolism without acute cor pulmonale (principal); G93.6 Cerebral edema; C71.9 Malignant neoplasm of brain, unspecified; G81.94 Hemiplegia, unspecified affecting left nondominant side; B37.0 Candidal stomatitis; G47.30 Sleep apnea, unspecified; K21.9 Gastro-esophageal reflux disease without esophagitis; M19.90 Unspecified osteoarthritis, unspecified site; M79.7 Fibromyalgia; G89.29 Other chronic pain; M25.569 Pain in unspecified knee; F41.9 Anxiety disorder, unspecified; F32.9 Major depressive disorder, single episode, unspecified; J44.9 Chronic obstructive pulmonary disease, unspecified; G40.909 Epilepsy, unspecified, not intractable, without status epilepticus; K22.2 Esophageal obstruction; R09.02 Hypoxemia; D64.9 Anemia, unspecified; D69.59 Other secondary thrombocytopenia; T45.1X5A Adverse effect of antineoplastic and immunosuppressive drugs, initial encounter; R58 Hemorrhage, not elsewhere classified; T38.0X5A Adverse effect of glucocorticoids and synthetic analogues, initial encounter; E87.6 Hypokalemia; Z88.1 Allergy status to other antibiotic agents; Z91.013 Allergy to seafood; Z98.84 Bariatric surgery status; Z86.19 Personal history of other infectious and parasitic diseases; Z87.891 Personal history of nicotine dependence; Y92.009 Unspecified place in unspecified non-institutional (private) residence as the place of occurrence of the external cause; Z79.52 Long term (current) use of systemic steroids
CPT/HCPCS: 36415; 70450; 70553; 71045; 71275; 72128; 72131; 80048; 80053; 80061; 81003; 81015; 82140; 82272; 82550; 82607; 82728; 83540; 83550; 83605; 84443; 85025; 85060; 85520; 85610; 85730; 86140; 86359; 86360; 86850; 86900; 86901; 86922; 93005; 99232; 99233; 99239; 99283; A9270-GY; A9579; G8978-GP-CL; G8979-GP-CJ; J1650; J2405; J8540; P9040; Q9967

== ENCOUNTER 2018-07-07 22:35 | Emergency (ER) | payer SELFPAY ==
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
[2018-07-07] MEDS ORDERED: oxyCODONE/Acetamin 5/325 MG* TAB PO ONE (23:06)
[2018-07-08 01:05] VITALS: BP 137/70
== END 2018-07-08 01:00 | disposition home or self-care (01) ==
LOC: ED 22:35
DX: S30.0XXA Contusion of lower back and pelvis, initial encounter (principal); W07.XXXA Fall from chair, initial encounter; Y92.9 Unspecified place or not applicable
CPT/HCPCS: 99283; A9270-GY

== ENCOUNTER 2018-07-24 12:43 | Inpatient (IN) | payer MEDICARE, BC ==
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
[2018-07-24 14:49] LABS: ABS Basophils 0 10^3/ul (0-0.2); ABS Eosinophils 0 10^3/ul (0-0.6); ABS Lymphocytes 0.2 10^3/ul (1.0-4.8); ABS Monocytes 0.2 10^3/ul (0-0.8); ABS Neutrophils 3.8 10^3/ul (1.5-7.7); ABS Nucleated RBC 0 10^3/ul; Eosinophil % 0.4 %; Hematocrit 29 % (35-47); Hemoglobin 9.3 g/dl (12.0-16.0); Lymphocyte % 5.6 %; Mean Corpuscular HGB Conc 32 g/dl (31-36); Mean Corpuscular Hemoglobin 30 pg (27-31); Mean Corpuscular Volume 94 fL (80-97); Nucleated Red Blood Cells % 0.3; Platelet Count 260 10^3/ul (150-450); Red Blood Count 3.11 10^6/ul (4.00-5.40); Red Cell Distribution Width 19 % (10.5-15); White Blood Count 4.2 10^3/ul (3.5-10.8)
[2018-07-24] MEDS ORDERED: NS 0.9% 1000 ML** 1,000 ML IV ONE (14:55)
[2018-07-24 14:57] LABS: INR 1.04 (0.77-1.02)
[2018-07-24 15:07] LABS: Albumin 3.7 g/dL (3.2-5.2); Albumin/Globulin Ratio 1.6 (1-3); BUN/Creatinine Ratio 12.1 (8-20); Calcium 8.6 mg/dL (8.6-10.3); EGFR African American 68.1 (>60); EGFR Non-African American 56.3 (>60); Globulin 2.3 g/dL (2-4); Magnesium 2.2 mg/dL (1.9-2.7); Total Bilirubin 0.4 mg/dL (0.2-1.0)
[2018-07-24] MEDS ORDERED: fentaNYL PATCH 50 MCG/HR TRANSDERM ONE (15:42)
[2018-07-24 15:45] LABS: TSH (Thyroid Stimulating Horm) 3.37 mcIU/mL (0.34-5.60)
[2018-07-24] MEDS: Dexamethasone TAB* 4 MG PO SCH (20:13)
[2018-07-24] MEDS: NS 0.9% w/ 40 Meq KCL 1000 ML* 1,000 ML IV SCH (20:30)
[2018-07-24] MEDS ORDERED: Ondansetron TAB* 4 MG PO PRN (22:25)
[2018-07-24] MEDS ORDERED: fentaNYL PATCH 50 MCG/HR TRANSDERM SCH (23:00)
[2018-07-24] MEDS: Melatonin 3 MG TAB PO PRN (23:05)
[2018-07-24] MEDS: oxyCODONE/Acetamin 5/325 MG* TAB PO PRN (23:05)
[2018-07-25 00:43] LABS: Urine Appearance Clear; Urine Bilirubin Negative (Negative); Urine Blood Negative (Negative); Urine Color Yellow; Urine Glucose Negative (Negative); Urine Ketones Negative (Negative); Urine Nitrite Negative (Negative); Urine Protein Negative (Negative); Urine Specific Gravity 1.019 (1.010-1.030); Urine Urobilinogen Negative (Negative)
[2018-07-25 08:13] LABS: BUN/Creatinine Ratio 20.6 (8-20); Calcium 8.2 mg/dL (8.6-10.3); EGFR African American 105.1 (>60); EGFR Non-African American 86.8 (>60)
[2018-07-25] MEDS: oxyCODONE/Acetamin 5/325 MG* TAB PO PRN (08:38)
[2018-07-25] MEDS: Dexamethasone TAB* 4 MG PO SCH ×2 (08:39→19:42)
[2018-07-25] MEDS: NS 0.9% w/ 40 Meq KCL 1000 ML* 1,000 ML IV SCH (10:35)
--- NOTE | 2018-07-25 10:50 | PN ---
Progress Note - Progress Note Date of Service: 07/25/18 SOAP: Subjective: [Fatigued this am. No further seizures. She does not recall the circumstances of her admission.] Objective: [ Laboratory Results - last 24 hr 07/24/18 07/24/18 07/24/18 12:50 12:50 12:50 WBC 4.2 RBC 3.11 L Hgb 9.3 L Hct 29 L MCV 94 MCH 30 MCHC 32 RDW 19 H Plt Count 260 MPV 9.0 Neut % (Auto) 88.7 Lymph % (Auto) 5.6 [place] % (Auto) 4.2 Eos % (Auto) 0.4 Baso % (Auto) 1.1 Absolute Neuts (auto) 3.8 Absolute Lymphs (auto) 0.2 L Absolute Monos (auto) 0.2 Absolute Eos (auto) 0 Absolute Basos (auto) 0 Absolute Nucleated RBC 0 Nucleated RBC % 0.3 INR (Anticoag Therapy) 1.04 H Sodium 140 Potassium 3.0 L Chloride 108 Carbon Dioxide 26 Anion Gap 6 BUN 12 Creatinine 0.99 H Est GFR ( Amer) 68.1 Est GFR (Non-Af Amer) 56.3 BUN/Creatinine Ratio 12.1 Glucose 121 H Lactic Acid Calcium 8.6 Magnesium 2.2 Total Bilirubin 0.40 AST 27 ALT 23 Alkaline Phosphatase 76 Total Protein 6.0 L Albumin 3.7 Globulin 2.3 Albumin/Globulin Ratio 1.6 TSH 3.37 Urine Color Urine Appearance Urine pH Ur Specific [place] Urine Protein Urine Ketones Urine Blood Urine Nitrate Urine Bilirubin Urine Urobilinogen Ur Leukocyte Esterase Urine Glucose 07/24/18 07/25/18 07/25/18 14:57 00:02 07:24 WBC RBC Hgb Hct MCV MCH MCHC RDW Plt Count MPV Neut % (Auto) Lymph % (Auto) [place] % (Auto) Eos % (Auto) Baso % (Auto) Absolute Neuts (auto) Absolute Lymphs (auto) Absolute Monos (auto) Absolute Eos (auto) Absolute Basos (auto) Absolute Nucleated RBC Nucleated RBC % INR (Anticoag Therapy) Sodium 142 Potassium 4.0 Chloride 115 H Carbon Dioxide 22 Anion Gap 5 BUN 14 Creatinine 0.68 Est GFR ( Amer) 105.1 Est GFR (Non-Af Amer) 86.8 BUN/Creatinine Ratio 20.6 H Glucose 97 Lactic Acid 0.9 Calcium 8.2 L Magnesium Total Bilirubin AST ALT Alkaline Phosphatase Total Protein Albumin Globulin Albumin/Globulin Ratio TSH Urine Color Yellow Urine Appearance Clear Urine pH 5.0 Ur Specific [place] 1.019 Urine Protein Negative Urine Ketones Negative Urine Blood Negative Urine Nitrate Negative Urine Bilirubin Negative Urine Urobilinogen Negative Ur Leukocyte Esterase Negative Urine Glucose Negative Dexamethasone (Decadron Tab*) 4 mg PO BID [facility] Last Admin: 07/25/18 08:39 Dose: 4 mg Potassium Chloride/Sodium Chloride (Ns 0.9% W/ 40 Meq Kcl 1000 Ml*) 1,000 mls @ 75 mls/hr IV PER RATE [facility] Last Admin: 07/24/18 20:30 Dose: 75 mls/hr Melatonin (Melatonin) 3 mg PO BEDTIME PRN PRN Reason: SLEEP Last Admin: 07/24/18 23:05 Dose: 3 mg Ondansetron HCl (Zofran Tab*) 4 mg PO Q4H PRN PRN Reason: NAUSEA Oxycodone/Acetaminophen (Percocet 5/325 Tab*) 1 tab PO Q4H PRN PRN Reason: PAIN Last Admin: 07/25/18 08:38 Dose: 1 tab Vital Signs: Temp Pulse Resp BP Pulse Ox 98.5 F 63 18 120/57 100 07/24/18 18:39 07/24/18 18:39 07/25/18 08:38 07/24/18 18:39 07/24/18 18:39 EXAM: Gen: Chronically ill appearing 63 yo female in NAD HEENT: MMM, no thrush CV: RRR, no m/r/g Resp: CTA, no w/c/r Abd: soft NTTP Ext: no edema Skin: multiple healing skin tears] Assessment: [63 yo female with GBM with disease recently stable on temodar and Avastin, but with increasing symptoms who was admitted after a fall at home and witnessed seizure in the ER.] Plan: [1. GBM - plan for Hospice - an outpatient referral had been initiated for Hospice but patient seemed to have an incomplete understanding of how that would change goals of care and the logistics of providing care - after a long discussion patient is agreeable to Hospice - she would like to be at home, but requires 24h care which is not currently in place 2. Seizure - dexamethasone increased, no further seizures at this time - will hold off on antiepileptics at this time unless she has additional seziures Dispo: Hospice, patient would prefer to be at home if 24h care can be arranged, 2nd choice would be Hospice residence 45 min spent face to face, >50% spent in counseling]
[2018-07-25] MEDS ORDERED: oxyCODONE/Acetamin 5/325 MG* TAB PO PRN (11:00)
[2018-07-25] MEDS: LORazepam TAB(*) 0.5 MG PO PRN ×2 (12:51→19:42)
[2018-07-25] MEDS: Pantoprazole TAB * 40 MG TAB PO PRN (12:51)
[2018-07-25] MEDS: Citalopram TAB* 10 MG PO SCH (12:52)
[2018-07-25] MEDS: Enoxaparin(*) 60 MG/0.6 ML SYR SUBCUT SCH ×2 (12:52→23:14)
[2018-07-25] MEDS: Clotrimazole TROCHE* 10 MG TROCHE PO SCH ×2 (15:51→19:42)
[2018-07-25] MEDS: oxyCODONE TAB* 5 MG TAB PO PRN ×4 (15:51→23:13)
[2018-07-25] MEDS: lamoTRIgine TAB(*) 100 MG PO SCH (19:41)
[2018-07-25] MEDS: Melatonin 3 MG TAB PO PRN (23:13)
[2018-07-26] MEDS: oxyCODONE TAB* 5 MG TAB PO PRN ×7 (05:18→21:56)
[2018-07-26] MEDS: LORazepam TAB(*) 0.5 MG PO PRN ×4 (05:18→21:57)
[2018-07-26] MEDS: Clotrimazole TROCHE* 10 MG TROCHE PO SCH ×3 (08:31→19:34)
[2018-07-26] MEDS: Citalopram TAB* 10 MG PO SCH (08:32)
[2018-07-26] MEDS: Dexamethasone TAB* 4 MG PO SCH ×2 (08:32→19:34)
[2018-07-26] MEDS: lamoTRIgine TAB(*) 100 MG PO SCH ×2 (08:32→19:34)
[2018-07-26] MEDS ORDERED: Citalopram TAB* 10 MG PO SCH (09:00)
[2018-07-26] MEDS: Enoxaparin(*) 60 MG/0.6 ML SYR SUBCUT SCH ×2 (11:00→21:57)
--- NOTE | 2018-07-26 12:18 | PN ---
Progress Note - Progress Note Date of Service: 07/26/18 SOAP: Subjective: [No changes overnight. Feeling well. Strength improving. No seizures] Objective: [ Vital Signs: Temp Pulse Resp BP Pulse Ox 99.0 F 60 18 124/59 100 07/26/18 07:46 07/26/18 07:46 07/26/18 11:31 07/26/18 07:46 07/26/18 07:46 EXAM: Gen: Chronically ill appearing 63 yo female in NAD HEENT: MMM, no thrush CV: RRR, no m/r/g Resp: CTA, no w/c/r Abd: soft NTTP Ext: no edema Skin: multiple healing skin tears] Assessment: [63 yo female with GBM with disease recently stable on temodar and Avastin, but with increasing symptoms who was admitted after a fall at home and witnessed seizure in the ER.] Plan: [1. GBM - plan for Hospice, today she is starting to question whether she would want to continue treatment - an outpatient referral had been initiated for Hospice but patient seemed to have an incomplete understanding of how that would change goals of care and the logistics of providing care 2. Seizure - dexamethasone increased, no further seizures at this time - cont Lamictal Dispo: pending Hospice consult, patient would prefer to be at home if 24h care can be arranged, 2nd choice would be Hospice residence ]
--- NOTE | 2018-07-26 14:38 | CONSULT ---
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 She was brought to the ER and admitted. She has PMH of COPD and SARA which pt denies both resolved when she lost weight, GERD, arthritis, fibromyalgia, seizures, gastric bypass. She is a non smoker/etoh/ drugs. Her recent CT brain showed to change from previous one. She has been admitted 08/31 with seizure, 10/11 with weakness, 11/18 with anemia and 06/17 with PE. She completed a [facility] DNR/DNI on her last hospitalization. Hospice had been discussed with the pt because she was having more medical issues, general decline and chemo was not shrinking the tumor. Currently she has caretakers for 8 hrs 7 days per week but no one overnight. Lab Values: Laboratory Last Values WBC 4.2 10^3/ul (3.5-10.8) 07/24/18 12:50 RBC 3.11 10^6/ul (4.00-5.40) L 07/24/18 12:50 Hgb 9.3 g/dl (12.0-16.0) L 07/24/18 12:50 Hct 29 % (35-47) L 07/24/18 12:50 MCV 94 fL (80-97) 07/24/18 12:50 MCH 30 pg (27-31) 07/24/18 12:50 MCHC 32 g/dl (31-36) 07/24/18 12:50 RDW 19 % (10.5-15) H 07/24/18 12:50 Plt Count 260 10^3/ul (150-450) 07/24/18 12:50 MPV 9.0 fL (7.4-10.4) 07/24/18 12:50 Neut % (Auto) 88.7 % 07/24/18 12:50 Lymph % (Auto) 5.6 % 07/24/18 12:50 [place] % (Auto) 4.2 % 07/24/18 12:50 Eos % (Auto) 0.4 % 07/24/18 12:50 Baso % (Auto) 1.1 % 07/24/18 12:50 Absolute Neuts (auto) 3.8 10^3/ul (1.5-7.7) 07/24/18 12:50 Absolute Lymphs (auto) 0.2 10^3/ul (1.0-4.8) L 07/24/18 12:50 Absolute Monos (auto) 0.2 10^3/ul (0-0.8) 07/24/18 12:50 Absolute Eos (auto) 0 10^3/ul (0-0.6) 07/24/18 12:50 Absolute Basos (auto) 0 10^3/ul (0-0.2) 07/24/18 12:50 Absolute Nucleated RBC 0 10^3/ul 07/24/18 12:50 Nucleated RBC % 0.3 07/24/18 12:50 INR (Anticoag Therapy) 1.04 (0.77-1.02) H 07/24/18 12:50 Sodium 142 mmol/L (135-145) 07/25/18 07:24 Potassium 4.0 mmol/L (3.5-5.0) 07/25/18 07:24 Chloride 115 mmol/L (101-111) H 07/25/18 07:24 Carbon Dioxide 22 mmol/L (22-32) 07/25/18 07:24 Anion Gap 5 mmol/L (2-11) 07/25/18 07:24 BUN 14 mg/dL (6-24) 07/25/18 07:24 Creatinine 0.68 mg/dL (0.51-0.95) 07/25/18 07:24 Est GFR ( Amer) 105.1 (>60) 07/25/18 07:24 Est GFR (Non-Af Amer) 86.8 (>60) 07/25/18 07:24 BUN/Creatinine Ratio 20.6 (8-20) H 07/25/18 07:24 Glucose 97 mg/dL (70-100) 07/25/18 07:24 Lactic Acid 0.9 mmol/L (0.5-2.0) 07/24/18 14:57 Calcium 8.2 mg/dL (8.6-10.3) L 07/25/18 07:24 Magnesium 2.2 mg/dL (1.9-2.7) 07/24/18 12:50 Total Bilirubin 0.40 mg/dL (0.2-1.0) 07/24/18 12:50 AST 27 U/L (13-39) 07/24/18 12:50 ALT 23 U/L (7-52) 07/24/18 12:50 Alkaline Phosphatase 76 U/L (34-104) 07/24/18 12:50 Total Protein 6.0 g/dL (6.4-8.9) L 07/24/18 12:50 Albumin 3.7 g/dL (3.2-5.2) 07/24/18 12:50 Globulin 2.3 g/dL (2-4) 07/24/18 12:50 Albumin/Globulin Ratio 1.6 (1-3) 07/24/18 12:50 TSH 3.37 mcIU/mL (0.34-5.60) 07/24/18 12:50 Urine Color Yellow 07/25/18 00:02 Urine Appearance Clear 07/25/18 00:02 Urine pH 5.0 (5-9) 07/25/18 00:02 Ur Specific [place] 1.019 (1.010-1.030) 07/25/18 00:02 Urine Protein Negative (Negative) 07/25/18 00:02 Urine Ketones Negative (Negative) 07/25/18 00:02 Urine Blood Negative (Negative) 07/25/18 00:02 Urine Nitrate Negative (Negative) 07/25/18 00:02 Urine Bilirubin Negative (Negative) 07/25/18 00:02 Urine Urobilinogen Negative (Negative) 07/25/18 00:02 Ur Leukocyte Esterase Negative (Negative) 07/25/18 00:02 Urine Glucose Negative (Negative) 07/25/18 00:02 - Objective Active Medications: Citalopram Hydrobromide (Celexa Tab*) 10 mg PO DAILY [facility]; Protocol Last Admin: 07/26/18 08:32 Dose: 10 mg Clotrimazole (Mycelex Merlyn*) 10 mg PO TID [facility] Last Admin: 07/26/18 14:18 Dose: 10 mg Dexamethasone (Decadron Tab*) 4 mg PO BID [facility] Last Admin: 07/26/18 08:32 Dose: 4 mg Enoxaparin Sodium (Lovenox(*)) 60 mg SUBCUT Q12H [facility] Last Admin: 07/26/18 11:00 Dose: 60 mg Hydroxyzine HCl (Atarax Tab*) 50 mg PO TID PRN PRN Reason: ITCHING Lamotrigine (Lamictal Tab(*)) 100 mg PO BID [facility] Last Admin: 07/26/18 08:32 Dose: 100 mg Lorazepam (Ativan Tab(*)) 0.5 mg PO Q4H PRN PRN Reason: ANXIETY Last Admin: 07/26/18 11:00 Dose: 0.5 mg Melatonin (Melatonin) 3 mg PO BEDTIME PRN PRN Reason: SLEEP Last Admin: 07/25/18 23:13 Dose: 3 mg Ondansetron HCl (Zofran Tab*) 4 mg PO Q4H PRN PRN Reason: NAUSEA Oxycodone HCl (Roxycodone Tab*) 5 mg PO Q2H PRN PRN Reason: PAIN Last Admin: 07/26/18 14:17 Dose: 5 mg Pantoprazole Sodium (Protonix Tab*) 40 mg PO DAILY PRN; Protocol PRN Reason: NAUSEA Last Admin: 07/25/18 12:51 Dose: 40 mg Vital Signs: Vital Signs: Temp Pulse Resp BP Pulse Ox 99.0 F 60 16 124/59 100 07/26/18 07:46 07/26/18 07:46 07/26/18 14:17 07/26/18 07:46 07/26/18 07:46 Patient Weight: Weight 54.93 kg Intake and Output: Intake & Output 07/24/18 07/25/18 07/26/18 07/27/18 06:59 06:59 06:59 06:59 Intake Total 2560 2748 480 Output Total 0 Balance 2560 2748 480 Weight 54.93 kg Intake: IV Fluids 1000 918 Oral 1560 1830 480 Output: Urine 0 Other: Estimated Void Large Medium # Bowel Movements 0 0 Estimated Stool Amount Medium # Voids 1 1 ADLs: Meal Record Start: 07/24/18 18: 12 Freq: DAILY@0900,1400,1800 Status: Active Protocol: Created 07/24/18 18:12 System (Rec: 07/24/18 18:12 System [id number]) Document 07/25/18 09:00 [id number] (Rec: 07/25/18 12:13 [id number] MED-C14) Document 07/25/18 13:30 [id number] (Rec: 07/25/18 13:30 [id number] MED-C14) Document 07/25/18 18:00 [id number] (Rec: 07/25/18 18:54 [id number] MED-C14) Document 07/26/18 09:00 [id number] (Rec: 07/26/18 12:26 [id number] MED-C11) Intake and Output Start: 07/24/18 12: 56 Freq: Status: Active Protocol: Created 07/24/18 12:56 System (Rec: 07/24/18 12:56 System [id number]) Intake and Output Start: 07/24/18 18: 12 Freq: DAILY@0600,1400,2200 Status: Active Protocol: Created 07/24/18 18:12 System (Rec: 07/24/18 18:12 System [id number]) Document 07/24/18 22:00 [id number] (Rec: 07/24/18 23:38 [id number] MED-C11) Document 07/24/18 23:38 [id number] (Rec: 07/24/18 23:38 [id number] MED-C11) Document 07/25/18 06:00 [id number] (Rec: 07/25/18 06:07 [id number] MED-C11) Document 07/25/18 13:30 [id number] (Rec: 07/25/18 13:30 [id number] MED-C14) Document 07/25/18 22:00 [id number] (Rec: 07/25/18 23:30 [id number] MED-C13) Document 07/26/18 05:20 [id number] (Rec: 07/26/18 05:20 [id number] MED-C14) Document 07/26/18 13:57 [id number] (Rec: 07/26/18 13:58 [id number] MED-C11) Head: Normal Neck: NL Appearance and Movements; NL JVP Cardiovascular: NL Sounds; No Murmurs; No JVD Respiratory: Clear to Auscultation Extremities: No Edema Neurological: Alert and Oriented x 3 - Assessment Assessment: 63 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 They were interested in hospice because they were told pt didn't have to stop curative treatment for her brain tumor and she may be eligible for 24 hr home health aides that medicare would cover under hospice benefit. Pt and her support group are well aware that the tumor didn't change after the last round of chemo and that she has a life expectancy of 3-6 months. They are also still interested in pursing a halo/cap that was offered to her at [place] as a last resort. Pt needs 24hr care at this point she can not be left on her own because of general decline/seizures/weakness. In the hospital she was devouring her lunch tray and looking for more. She says at home meals are an issue and she isn't getting enough with meals on wheels. Home health aides should be able to help with meals. She has 2 dogs which she wants to be with so is definitely not interested in the residence now. She does have someone who will take the dogs when she dies. They are anxious to get the coverage of chcf- she needs 2 daily injections and home health aides. I notified case management about sending referral to [facility] but told them we may not know anything until Saturday. She has signed a DNR/DNI 06/11/18. Also recommended [facility] referral and referral was sent. Spoke with Vadim DUMONT from oncology about change in plan. Pt still enjoys her life not depressed and has friends drop in. - Time On Unit Date of Evaluation: 07/26/18 Hospice Consult Time in: 01:00 Hospice Consult Time Out: 03:00 Hospice Consult Time Total: 120 > 50% of Time Spend In Counseling or Coordinating Care: Yes
[2018-07-26] MEDS: Melatonin 3 MG TAB PO PRN (19:34)
[2018-07-27] MEDS: lamoTRIgine TAB(*) 100 MG PO SCH ×2 (07:30→20:07)
[2018-07-27] MEDS: oxyCODONE TAB* 5 MG TAB PO PRN ×5 (07:30→18:51)
[2018-07-27] MEDS: Citalopram TAB* 10 MG PO SCH (07:30)
[2018-07-27] MEDS: Dexamethasone TAB* 4 MG PO SCH ×2 (07:31→20:07)
[2018-07-27] MEDS: Clotrimazole TROCHE* 10 MG TROCHE PO SCH ×3 (07:31→20:07)
--- NOTE | 2018-07-27 10:16 | PN ---
Progress Note - Progress Note Date of Service: 07/27/18 SOAP: Subjective: [No changes overnight. Reports some increased pain and VILLALTA this am that she has asked for her usual pain medications. She spoke with Dr Holguin with Hospice with her HCP Pina and has decided against Hospice care at this time. She would like to resume treatment with 24h [address] at home.] Objective: [ Vital Signs Temp Pulse Resp BP Pulse Ox 99.0 F 60 14 124/59 100 07/26/18 07:46 07/26/18 07:46 07/27/18 10:06 07/26/18 07:46 07/26/18 07:46 Citalopram Hydrobromide (Celexa Tab*) 10 mg PO DAILY [facility]; Protocol Last Admin: 07/27/18 07:30 Dose: 10 mg Clotrimazole (Mycelex Merlyn*) 10 mg PO TID [facility] Last Admin: 07/27/18 07:31 Dose: 10 mg Dexamethasone (Decadron Tab*) 4 mg PO BID [facility] Last Admin: 07/27/18 07:31 Dose: 4 mg Enoxaparin Sodium (Lovenox(*)) 60 mg SUBCUT Q12H [facility] Last Admin: 07/26/18 21:57 Dose: 60 mg Hydroxyzine HCl (Atarax Tab*) 50 mg PO TID PRN PRN Reason: ITCHING Lamotrigine (Lamictal Tab(*)) 100 mg PO BID [facility] Last Admin: 07/27/18 07:30 Dose: 100 mg Lorazepam (Ativan Tab(*)) 0.5 mg PO Q4H PRN PRN Reason: ANXIETY Last Admin: 07/26/18 21:57 Dose: 0.5 mg Melatonin (Melatonin) 3 mg PO BEDTIME PRN PRN Reason: SLEEP Last Admin: 07/26/18 19:34 Dose: 3 mg Ondansetron HCl (Zofran Tab*) 4 mg PO Q4H PRN PRN Reason: NAUSEA Oxycodone HCl (Roxycodone Tab*) 5 mg PO Q2H PRN PRN Reason: PAIN Last Admin: 07/27/18 10:06 Dose: 5 mg Pantoprazole Sodium (Protonix Tab*) 40 mg PO DAILY PRN; Protocol PRN Reason: NAUSEA Last Admin: 07/25/18 12:51 Dose: 40 mg EXAM: Gen: Chronically ill appearing 63 yo female in NAD HEENT: MMM, no thrush CV: RRR, no m/r/g Resp: CTA, no w/c/r Abd: soft NTTP Ext: no edema Skin: multiple healing skin tears] Assessment: [63 yo female with GBM with disease recently stable on temodar and Avastin, but with increasing symptoms who was admitted after a fall at home and witnessed seizure in the ER.] Plan: [1. GBM - patient has now declined Hospice and would like to resume treatment - will obtain MRI to eval for interval progression and help to establish a new baseline since she has been off of therapy - can resume Temodar when she returns home - she is interested in learning more about the [employer] helmet and will discuss this with Dr Medrano, she is also interested in clinical trials but I do not believe her performance status is appropriate for a trial at this time 2. Seizure - dexamethasone increased, no further seizures at this time - cont Lamictal Dispo: anticipate dc home with 24h care which her HCP is working to arrange
[2018-07-27] MEDS: LORazepam TAB(*) 0.5 MG PO PRN ×2 (10:53→15:47)
[2018-07-27] MEDS: Enoxaparin(*) 60 MG/0.6 ML SYR SUBCUT SCH (10:54)
[2018-07-27] MEDS: fentaNYL PATCH 50 MCG/HR TRANSDERM SCH (11:48)
[2018-07-27] MEDS: hydrOXYzine HCL TAB* 50 MG PO PRN (15:52)
[2018-07-27] MEDS: fentaNYL Patch Check Q Shift 1 NOTE FOLLOW UP SCH (18:51)
[2018-07-27] MEDS ORDERED: Acetaminophen TAB* 325 MG ONE (20:05)
[2018-07-28] MEDS: oxyCODONE TAB* 5 MG TAB PO PRN ×6 (02:22→22:53)
[2018-07-28] MEDS: Acetaminophen TAB* 325 MG PO PRN ×3 (02:23→20:26)
[2018-07-28] MEDS: fentaNYL Patch Check Q Shift 1 NOTE FOLLOW UP SCH ×2 (06:05→18:46)
[2018-07-28] MEDS: Dexamethasone TAB* 4 MG PO SCH ×2 (07:40→20:27)
[2018-07-28] MEDS: Clotrimazole TROCHE* 10 MG TROCHE PO SCH ×3 (07:40→20:33)
[2018-07-28] MEDS: lamoTRIgine TAB(*) 100 MG PO SCH ×2 (07:40→20:27)
[2018-07-28] MEDS: Citalopram TAB* 10 MG PO SCH (07:40)
--- NOTE | 2018-07-28 10:40 | PN ---
Progress Note - Progress Note Date of Service: 07/28/18 SOAP: Subjective: [] better in hospital with nursing. stronger. eating well. had expressed intrest in therapy yesterday. Active Medications Generic Name Dose Route Start Last Admin Trade Name Freq PRN Reason Stop Dose Admin Acetaminophen 650 mg 07/27/18 19:58 07/28/18 02:23 Tylenol Tab* PO 650 mg Q6H PRN Administration FEVER OR PAIN Citalopram Hydrobromide 10 mg 07/25/18 11:54 07/28/18 07:40 Celexa Tab* PO 10 mg DAILY ARACELI Administration Protocol Clotrimazole 10 mg 07/25/18 14:00 07/28/18 07:40 Mycelex Merlyn* PO 10 mg TID ARACELI Administration Dexamethasone 4 mg 07/24/18 21:00 07/28/18 07:40 Decadron Tab* PO 4 mg BID ARACELI Administration Enoxaparin Sodium 60 mg 07/25/18 11:30 07/28/18 00:00 Lovenox(*) SUBCUT 60 mg Q12H ARACELI Administration Fentanyl 50 mcg 07/27/18 12:00 07/27/18 11:48 Duragesic Patch 50 Mcg/Hr* TRANSDERM 50 mcg Q72H ARACELI Administration Hydroxyzine HCl 50 mg 07/25/18 11:00 07/27/18 15:52 Atarax Tab* PO 50 mg TID PRN Administration ITCHING Lamotrigine 100 mg 07/25/18 21:00 07/28/18 07:40 Lamictal Tab(*) PO 100 mg BID ARACELI Administration Lorazepam 0.5 mg 07/25/18 11:54 07/27/18 15:47 Ativan Tab(*) PO 0.5 mg Q4H PRN Administration ANXIETY Melatonin 3 mg 07/24/18 22:27 07/26/18 19:34 Melatonin PO 3 mg BEDTIME PRN Administration SLEEP Ondansetron HCl 4 mg 07/24/18 22:25 Zofran Tab* PO Q4H PRN NAUSEA Oxycodone HCl 5 mg 07/25/18 13:59 07/28/18 02:22 Roxycodone Tab* PO 5 mg Q2H PRN Administration PAIN Pantoprazole Sodium 40 mg 07/25/18 11:00 07/25/18 12:51 Protonix Tab* PO 40 mg DAILY PRN Administration NAUSEA Protocol Pharmacy Profile Note 1 note 07/27/18 19:00 07/28/18 06:05 Fentanyl Patch Check Q Shift FOLLOW UP 1 note 0700,1900 ARACELI Administration Objective: [] Vital Signs Temp Pulse Resp BP Pulse Ox 98.7 F 70 18 137/86 99 07/27/18 07:54 07/27/18 07:54 07/28/18 07:44 07/27/18 07:54 07/27/18 07:54 EXAM: Gen: Chronically ill appearing 63 yo female in NAD HEENT: MMM, no thrush CV: RRR, no m/r/g Resp: CTA, no w/c/r Abd: soft NTTP Ext: no edema Skin: multiple healing skin tears] Assessment: [63 yo female with GBM with disease recently stable on temodar and Avastin, but with increasing symptoms who was admitted after a fall at home and witnessed seizure in the ER. ] Plan: [1. GBM. Discuss plan going forward. I do not think she is a good candidate for additional chemotherapy at this time. This was discussed with the patient as well as her caregiverPina. Both agree to hospice at this time. MRI is pending today, I assume will show advancing disease. If there is a surprise finding on the MRI we can reconsider. Also discussed that if she does very well over the next 2 months with improved performance status we can reconsider therapy. Her goal is to stay with her dogs as much as possible and I think the probability of time with her dogs is better on hospice. 2. Seizure - dexamethasone increased, no further seizures at this time - cont Lamictal 3. Jas with a rice drier operator tomorrow to discuss advanced directives, estate issues. Time spent: 35 minutes with patient and chart.
[2018-07-28] MEDS: Enoxaparin(*) 60 MG/0.6 ML SYR SUBCUT SCH ×3 (11:03→22:53)
[2018-07-28] MEDS: LORazepam TAB(*) 0.5 MG PO PRN ×2 (12:48→20:26)
[2018-07-28 16:32] LABS: BUN/Creatinine Ratio 20.3 (8-20); EGFR African American 88.4 (>60); Potassium 4.1 mmol/L (3.5-5.0)
[2018-07-28] MEDS ORDERED: Gadoteridol* (CONTRAST) 279.3 MG/ML 10 ML IV ONE (19:33)
[2018-07-28] MEDS: Melatonin 3 MG TAB PO PRN (20:27)
[2018-07-29] MEDS: LORazepam TAB(*) 0.5 MG PO PRN ×5 (00:36→23:13)
[2018-07-29] MEDS: oxyCODONE TAB* 5 MG TAB PO PRN ×8 (01:05→23:12)
[2018-07-29] MEDS: hydrOXYzine HCL TAB* 50 MG PO PRN ×2 (01:08→23:23)
[2018-07-29] MEDS: Acetaminophen TAB* 325 MG PO PRN ×3 (02:32→18:52)
[2018-07-29] MEDS: fentaNYL Patch Check Q Shift 1 NOTE FOLLOW UP SCH ×2 (07:08→18:49)
[2018-07-29] MEDS: Clotrimazole TROCHE* 10 MG TROCHE PO SCH ×3 (09:05→20:41)
[2018-07-29] MEDS: lamoTRIgine TAB(*) 100 MG PO SCH ×2 (09:05→20:41)
[2018-07-29] MEDS: Citalopram TAB* 10 MG PO SCH (09:06)
[2018-07-29] MEDS: Dexamethasone TAB* 4 MG PO SCH ×2 (09:06→20:41)
--- NOTE | 2018-07-29 11:01 | PN ---
Progress Note - Progress Note Date of Service: 07/29/18 SOAP: Subjective: []Feeling well today. Accompanied by Pina, good friend. Met with production administrative assistant. Wants to pursue hospice and would prefer to be at home but states understanding of safety concerns. Pina does not feel they can afford 24/7 private aide in the home. Medications: Acetaminophen (Tylenol Tab*) 650 mg PO Q6H PRN PRN Reason: FEVER OR PAIN Last Admin: 07/29/18 09:06 Dose: 650 mg Citalopram Hydrobromide (Celexa Tab*) 10 mg PO DAILY [facility]; Protocol Last Admin: 07/29/18 09:06 Dose: 10 mg Clotrimazole (Mycelex Merlyn*) 10 mg PO TID [facility] Last Admin: 07/29/18 09:05 Dose: 10 mg Dexamethasone (Decadron Tab*) 4 mg PO BID [facility] Last Admin: 07/29/18 09:06 Dose: 4 mg Enoxaparin Sodium (Lovenox(*)) 60 mg SUBCUT Q12H [facility] Last Admin: 07/28/18 22:53 Dose: 60 mg Fentanyl (Duragesic Patch 50 Mcg/Hr*) 50 mcg TRANSDERM Q72H [facility] Last Admin: 07/27/18 11:48 Dose: 50 mcg Hydroxyzine HCl (Atarax Tab*) 50 mg PO TID PRN PRN Reason: ITCHING Last Admin: 07/29/18 01:08 Dose: 50 mg Lamotrigine (Lamictal Tab(*)) 100 mg PO BID [facility] Last Admin: 07/29/18 09:05 Dose: 100 mg Lorazepam (Ativan Tab(*)) 0.5 mg PO Q4H PRN PRN Reason: ANXIETY Last Admin: 07/29/18 05:27 Dose: 0.5 mg Melatonin (Melatonin) 3 mg PO BEDTIME PRN PRN Reason: SLEEP Last Admin: 07/28/18 20:27 Dose: 3 mg Ondansetron HCl (Zofran Tab*) 4 mg PO Q4H PRN PRN Reason: NAUSEA Oxycodone HCl (Roxycodone Tab*) 5 mg PO Q2H PRN PRN Reason: PAIN Last Admin: 07/29/18 07:49 Dose: 5 mg Pantoprazole Sodium (Protonix Tab*) 40 mg PO DAILY PRN; Protocol PRN Reason: NAUSEA Last Admin: 07/25/18 12:51 Dose: 40 mg Pharmacy Profile Note (Fentanyl Patch Check Q Shift) 1 note FOLLOW UP 0700, 1900 ARACELI Last Admin: 07/29/18 07:08 Dose: 1 note Objective: [] Vital Signs Temp Pulse Resp BP Pulse Ox 98.4 F 85 14 107/55 98 07/29/18 07:23 07/29/18 07:23 07/29/18 08:00 07/29/18 07:23 07/29/18 07:23 Alert and oriented, involved in conversation and decision making Easily confused but quickly re-orients as needed Resting comfortably sitting upright in bed with even and non-labored respirations Laboratory Results - last 24 hr 07/28/18 15:58 Sodium 139 Potassium 4.1 Chloride 111 Carbon Dioxide 21 L Anion Gap 7 BUN 16 Creatinine 0.79 Est GFR ( Amer) 88.4 Est GFR (Non-Af Amer) 73.0 BUN/Creatinine Ratio 20.3 H Glucose 97 Calcium 8.0 L MRI of brain yesterday with stable enhancement and associated edema Assessment/Plan: []63 yo female with advanced GBM and progressive performance decline now planned for transition to hospice. To clarify she did not have a witnessed seizure in the hospital, however on presentation friend who was with her noted seizure like activity with a fall. [facility] and we are working with case management on placement. Prognosis is likely approximately 3 months therefore she is not a good candidate for the residence.
[2018-07-29] MEDS: Enoxaparin(*) 60 MG/0.6 ML SYR SUBCUT SCH ×2 (11:39→23:13)
--- NOTE | 2018-07-29 17:15 | DS ---
- Discharge Summary Admission Date: 07/24/18 Discharge Chandan: 07/30/18 Discharge Diagnosis: 1. GBM: transition to hospice 2. Seizures: none in hospital, continue lamictal 3. Falls: transition to SNF Discharge Medications: Medication Instructions Recorded Confirmed Type Esomeprazole(NF) [Nexium(NF)] 20 mg PO DAILY PRN 06/10/17 07/24/18 History hydrOXYzine HCL TAB* [Atarax TAB 50 mg PO TID PRN 11/01/17 07/24/18 History 50 MG *] Escitalopram (NF) [Lexapro 5 mg 5 mg PO DAILY 06/12/18 07/24/18 History (NF)] Enoxaparin(*) [Lovenox(*)] 60 mg SUBCUT Q12H syringe 06/18/18 07/24/18 Rx fentaNYL PATCH 50 MCG/HR* 50 mcg TOPICAL Q72H #10 patch MDD 06/18/18 07/24/18 Rx [Duragesic PATCH 50 Mcg/Hr*] 1 patch Clotrimazole MERLYN* [Mycelex 10 mg PO TID 07/24/18 07/24/18 History Merlyn*] lamoTRIgine TAB(*) [Lamictal 100 mg PO BID 07/24/18 07/24/18 History TAB(*)] Acetaminophen TAB* [Tylenol TAB*] 650 mg PO Q6H PRN tab 07/29/18 Rx Dexamethasone TAB* [Decadron TAB*] 4 mg PO BID tab 07/29/18 Rx LORazepam TAB(*) [Ativan 0.5 MG 0.5 mg PO Q4H PRN tab 07/29/18 Rx TAB (*)] Melatonin 3 mg PO BEDTIME PRN tab 07/29/18 Rx Ondansetron TAB* [Zofran 4 MG Tab*] 4 mg PO Q4H PRN tab 07/29/18 Rx oxyCODONE TAB* [Roxycodone TAB 5 5 mg PO Q2H PRN tab 07/29/18 Rx mg*] Hospital Course: Please see admission note for full H&P, however briefly, Ms. 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 She presented to the ER on 07/24 following a fall at home and what appeared to be a seizure based on caregivers report. In the ER she had a CT of the head without contrast that showed no evidence for intracranial bleeding. She had mild hypokalemia and with falls it was felt most safe to observe her overnight with hydration. She has done very well during admission with some improvement in her strength following hydration and nursing support, however ultimately it is felt she has not benefit to further treatment and with her declining performance status that she would benefit most from hospice services. An MRI of the brain yesterday showed stable disease with persistent edema. She and her proxy initially had hoped to provide 24 hour care in her home, however today this felt unrealistic and Ms. Erik Echeverria has decided to pursue placement with [facility]. She has accepted a bed at [facility] and will be discharged with plan for hospice sign on in the very near future. Plan of care reviewed, questions answered >40 min spent with >50% face to face counseling
[2018-07-29] MEDS: Melatonin 3 MG TAB PO PRN (20:41)
[2018-07-29] MEDS: Pantoprazole TAB * 40 MG TAB PO PRN (23:37)
[2018-07-30] MEDS: LORazepam TAB(*) 0.5 MG PO PRN ×2 (05:31→11:55)
[2018-07-30] MEDS: oxyCODONE TAB* 5 MG TAB PO PRN ×4 (05:31→13:07)
[2018-07-30] MEDS: fentaNYL Patch Check Q Shift 1 NOTE FOLLOW UP SCH (06:58)
[2018-07-30] MEDS: Dexamethasone TAB* 4 MG PO SCH (07:37)
[2018-07-30] MEDS: lamoTRIgine TAB(*) 100 MG PO SCH (07:37)
[2018-07-30] MEDS: Citalopram TAB* 10 MG PO SCH (07:37)
[2018-07-30] MEDS: Pantoprazole TAB * 40 MG TAB PO PRN (07:49)
[2018-07-30] MEDS: Clotrimazole TROCHE* 10 MG TROCHE PO SCH ×2 (07:49→12:19)
[2018-07-30 07:50] VITALS: BP 132/60
[2018-07-30] MEDS: fentaNYL PATCH 50 MCG/HR TRANSDERM SCH (11:52)
[2018-07-30] MEDS: Enoxaparin(*) 60 MG/0.6 ML SYR SUBCUT SCH (11:55)
== END 2018-07-30 13:15 | DRG 55 ==
LOC: ED 12:43 → MED 16:04 → OBSVTOIN 07-25 13:04
PROVIDERS: ADMIT Internal Medicine; ATTEND Internal Medicine Hematology & Oncology
DX: C71.9 Malignant neoplasm of brain, unspecified (principal); G40.909 Epilepsy, unspecified, not intractable, without status epilepticus; W18.30XA Fall on same level, unspecified, initial encounter; E87.6 Hypokalemia; C71.1 Malignant neoplasm of frontal lobe; M19.90 Unspecified osteoarthritis, unspecified site; K63.5 Polyp of colon; F32.9 Major depressive disorder, single episode, unspecified; Z66 Do not resuscitate; Y92.9 Unspecified place or not applicable; Z79.899 Other long term (current) drug therapy; Z88.8 Allergy status to other drugs, medicaments and biological substances; Z98.84 Bariatric surgery status; Z80.3 Family history of malignant neoplasm of breast
CPT/HCPCS: 36415; 70450; 70553; 80048; 80053; 81003; 83605; 83735; 84443; 85025; 85610; 93005; 99219; 99232; 99233; 99239; 99282; A9270-GY; A9579; G0378; J1650; J8540